=== PATIENT | male | born 1965 | race Caucasian/White ===

== ENCOUNTER 2023-03-02 11:10 | Outpatient (OUT) | payer OTHER, SELFPAY ==
[2023-03-02 11:50] LABS: Anion Gap 9.4; BUN Creatinine Ratio 13.2; Calcium 8.9 mg/dL (8.5-10.1); Carbon Dioxide 30.6 mmol/L (21.0-32.0); Chloride 106 mmol/L (98-107); Estimated GFR (African America >60 (>=60); Estimated GFR (Non-African Ame >60 (>=60); Glucose 107 mg/dL (74-106); Magnesium 1.7 mg/dL (1.8-2.4); Sodium 142 mmol/L (136-145)
[2023-03-02 11:54] LABS: Estimated Average Glucose 108 mg/dL; Glycohemoglobin A1C 5.4 % (4.5-6.2)
== END 2023-03-02 11:11 ==
PROVIDERS: PCP Nurse Practitioner; Visit Provider Nurse Practitioner
DX: E83.42 Hypomagnesemia (principal); R73.03 Prediabetes
CPT/HCPCS: 36415; 80048; 83036; 83735

== ENCOUNTER 2023-05-06 07:53 | Outpatient (OUT) | payer OTHER, SELFPAY ==
[2023-05-07 04:10] LABS: PSA, Free 0.66 ng/mL; Prostate Specific Ag 3.9 ng/mL (0.0-4.0)
== END 2023-05-06 07:54 | disposition home or self-care (01) ==
LOC: LAB 07:54
PROVIDERS: PCP Nurse Practitioner; Visit Provider Urology
DX: R97.20 Elevated prostate specific antigen [PSA] (principal)
CPT/HCPCS: 36415; 84153; 84154

== ENCOUNTER 2023-05-13 06:03 | Emergency (ER) | payer OTHER, SELFPAY ==
[2023-05-13 06:06] VITALS: BP 161/94; PULSE 73; RESP 20; O2SAT 99; BMI 23.7
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
[2023-05-13] MEDS: SILVER SULFADIAZINE 1% CREAM 25 GM TUBE 1 APPLIC TOPICAL (06:48)
[2023-05-13] MEDS: ADACEL DIPH,PERTUSS(ACELL),TET VAC/PF 0.5 ML ADULT SYRINGE IM (06:49)
== END 2023-05-13 08:12 | disposition home or self-care (01) ==
PROVIDERS: Emergency Provider Internal Medicine; PCP Nurse Practitioner
DX: T20.27XA Burn of second degree of neck, initial encounter (principal); T20.211A Burn of second degree of right ear [any part, except ear drum], initial encounter; X16.XXXA Contact with hot heating appliances, radiators and pipes, initial encounter; Z23 Encounter for immunization
CPT/HCPCS: 90471; 90715; 99283

== ENCOUNTER 2023-10-21 14:57 | Outpatient (OUT) | payer OTHER, SELFPAY ==
[2023-10-21 15:20] LABS: Basophils Absolute Auto 0.1 10^3/uL (0.0-0.1); Basophils Percent Auto 1.7 % (0.2-2.0); Eosinophils Absolute Auto 0.2 10^3/uL (0.0-0.7); Eosinophils Percent Auto 3.9 % (0.9-7.0); Hematocrit 44.1 % (42.0-54.0); Hemoglobin 14.3 g/dL (14.0-18.0); Immature Granulocytes Abs Auto 0.01 10^3/uL (0.00-0.03); Immature Granulocytes Pct Auto 0.2 % (0.0-0.5); Lymphocytes Absolute Auto 1.4 10^3/uL (1.2-3.8); Lymphocytes Percent Auto 30.2 % (20.5-60.0); Mean Corpuscular HGB Conc 32.4 g/dL (29.9-35.2); Mean Corpuscular Hemoglobin 29.5 pg (25.9-34.0); Mean Corpuscular Volume 90.9 fL (80.0-94.0); Mean Platelet Volume 9.7 fL (9.5-13.5); Monocytes Absolute Auto 0.5 10^3/uL (0.3-0.8); Monocytes Percent Auto 10.1 % (1.7-12.0); Neutrophils Absolute Auto 2.5 10^3/uL (1.4-6.5); Neutrophils Percent Auto 53.9 % (43.0-75.0); Platelet Count 211 10^3/uL (150-450); Red Blood Count 4.85 10^6/uL (4.70-6.10); White Blood Count 4.6 10^3/uL (4.0-11.0)
[2023-10-21 15:27] LABS: Bilirubin Urine NEGATIVE (NEGATIVE); Blood Urine NEGATIVE (NEGATIVE); Clarity Urine CLEAR (CLEAR); Color Urine YELLOW (YELLOW); Glucose Urine UA NEGATIVE (NEGATIVE); Ketones Urine NEGATIVE (NEGATIVE); Leukocyte Esterase Urine NEGATIVE (NEGATIVE); Nitrite Urine NEGATIVE (NEGATIVE); Protein Urine NEGATIVE (NEG/TRACE); Specific Gravity Urine >=1.030 (1.005-1.025); Urobilinogen Urine 0.2 EU/dL (0.2-1.0)
[2023-10-21 15:33] LABS: Estimated Average Glucose 111 mg/dL; Glycohemoglobin A1C 5.5 % (4.5-6.2)
[2023-10-21 15:34] LABS: Microalbumin Urine Random <1.3 mg/dL (<=30.0)
[2023-10-21 15:36] LABS: Alanine Aminotransferase 29 U/L (16-63); Albumin Globulin Ratio 1.1; Albumin Level 3.7 g/dL (3.4-5.0); Alkaline Phosphatase 50 U/L (46-116); Anion Gap 6.5; Aspartate Amino Transferase 21 U/L (15-37); BUN Creatinine Ratio 18.4; Bilirubin Total 0.6 mg/dL (0.2-1.0); Calcium 8.8 mg/dL (8.5-10.1); Carbon Dioxide 32.5 mmol/L (21.0-32.0); Chloride 108 mmol/L (98-107); Chol HDL Ratio 3.7; Cholesterol 142 mg/dL (<=200); Estimated GFR (African America >60 (>=60); Estimated GFR (Non-African Ame >60 (>=60); Globulin 3.3 g/dL; Glucose 89 mg/dL (74-106); HDL Cholesterol 38 mg/dL (40-60); Magnesium 1.9 mg/dL (1.8-2.4); Sodium 143 mmol/L (136-145); Triglycerides 87 mg/dL (<=150); VLDL CHOLESTEROL 17.4 mg/dL
[2023-10-21 15:45] LABS: Urine Microscopic Indicated YES
[2023-10-21 15:48] LABS: Bacteria Urine TRACE #/HPF (NONE SEEN); Cast Seen? NONE SEEN #/LPF (NONE SEEN); Crystals Seen? None Seen #/HPF (None Seen); Mucus Urine TRACE (NONE SEEN); RBC Urine 0-2 #/HPF (0-2); Squamous Epithelial Cell Urine RARE #/LPF (NONE/RARE); WBC Urine NONE SEEN #/HPF (NONE SEEN)
[2023-10-21 15:49] LABS: Urine Culture Indicated NO
== END 2023-10-21 14:58 | disposition home or self-care (01) ==
LOC: LAB 14:58
PROVIDERS: PCP Nurse Practitioner; Visit Provider Nurse Practitioner
DX: I10 Essential (primary) hypertension (principal); E78.2 Mixed hyperlipidemia; E61.2 Magnesium deficiency; K21.9 Gastro-esophageal reflux disease without esophagitis; E66.01 Morbid (severe) obesity due to excess calories; R73.03 Prediabetes
CPT/HCPCS: 36415; 80053; 80061; 81001; 82043; 83036; 83735; 85025

== ENCOUNTER 2024-07-09 10:37 | Outpatient (OUT) | payer OTHER, SELFPAY ==
--- OUTSIDE RECORDS SUMMARY | 2024-07-09 10:44 | XMS_ITS | CCD ---
Author Organization [facility] Inform ion Partnership [facility] Care Team Providers Care Public Policy Mediator Name Role Phone Kari Hernandez Unavailable Coty Valera Unavailable AICHHOLZ, FRENCH CORD BINDER JOEY Primary Care Unavailable PAY, DR MUIR Admitting Unavailable PAY, DR MUIR Attending Unavailable SALBADOR, DR DILMA Levi Consulting Unavailable PAY, DR MUIR Consulting Unavailable AICHHOLZ, FRENCH CORD BINDER JOEY Primary Care Unavailable DEMARCUS, DR ELÍAS Martinez Consulting Unavailable DEMARCUS, DR ELÍAS Martinez Admitting Unavailable DEMARCUS, DR ELÍAS Martinez Attending Unavailable EDDIE MARTINEZ Consulting Unavailable AICHHOLZ, FRENCH CORD BINDER JOEY Admitting Unavailable AICHHOLZ, FRENCH CORD BINDER JOEY Attending Unavailable AICHHOLZ, FRENCH CORD BINDER JOEY Primary Care Unavailable AICHHOLZ, FRENCH CORD BINDER JOEY Consulting Unavailable AICHHOLZ, FRENCH CORD BINDER JOEY Admitting Unavailable AICHHOLZ, FRENCH CORD BINDER JOEY Attending Unavailable AICHHOLZ, FRENCH CORD BINDER JOEY Primary Care Unavailable AICHHOLZ, FRENCH CORD BINDER JOEY Consulting Unavailable AICHHOLZ, FRENCH CORD BINDER JOEY Admitting Unavailable AICHHOLZ, FRENCH CORD BINDER JOEY Attending Unavailable AICHHOLZ, FRENCH CORD BINDER JOEY Primary Care Unavailable AICHHOLZ, FRENCH CORD BINDER JOEY Consulting Unavailable Kari Pillai Unavailable ADEBAYO ROBLES Attending Unavailable ADEBAYO ROBLES Referring Unavailable ANNMARIE MALONE Attending Unavailable SIDDHARTH, JOEY Attending Unavailable Christi Bright Attending Unavailable JOEY MESSINA Primary Care Physician Medications Current Medications Medication Drug Class(es) Dates Sig (Normalized) Sig (Original) [id number] 200 actuat albuterol 0.09 mg/actuat metered dose inhaler (5 sources) beta2-Adrenergic Agonist Start: 05-13-2022 take 2 puff(s) by inhalation every four hours as needed Albuterol Sulfate HFA 108 (90 Base) MCG/ACT 2 puffs as needed Inhalation every 4 hrs Apr, Active Start: 12-25-2020 take 2 puff(s) by in halation every four hours as needed Albuterol Sulfate HFA 108 (90 Base) MCG/ACT 2 puffs as needed Inhalation every 4 hrs Dec, Not-Taking Albuterol Active albuterol CFC free 90 mcg/inh inhalation aerosol (1 source) Start: 03-29-2020 take 2 puff(s) by inhalation four times daily albuterol CFC free 90 mcg/inh inhalation aerosol = 2 puff(s), Inhalation, QID Start Date: 03/29/20 Status: Ordered aspirin 81 mg delayed release oral tablet (4 sources) Platelet Aggregation Inhibitor, Nonsteroidal Anti-inflammatory Drug Start: 04-01-2020 take 1 tablet by mouth once daily aspirin 81 mg Oral EC Tab 81 mg = 1 tab(s), Oral, Daily, Refills(s) 0 Start Date: 04/01/20 Status: Ordered take 1 tablet by mouth once charles y Aspirin 81 81 MG 1 tablet Orally Once a day Active atenolol 25 mg oral tablet (4 sources) beta-Adrenergic Harry Start: 03-29-2020 take 1 tablet by mouth once daily atenolol 25 mg Tab 25 mg = 1 tab(s), Oral, Daily Start Date: 03/29/20 Status: Ordered Atenolol Active atorvastatin 20 mg oral tablet (4 sources) HMG-CoA Reductase Inhibitor Start: 04-01-2020 take 1 tablet by mouth once daily atorvastatin 20 mg Tab 20 mg = 1 tab(s), Oral, Daily, Refills(s) 0 Start Date: 04/01/20 Status: Ordered azithromycin 250 mg oral tablet (2 sources) Macrolide Antimicrobial Start: 05-13-2022 Azithromycin 250 MG 2 tablets on the first day, then 1 tablet daily for 4 days Orally Once a day for 5 day(s) Apr, Active Start: 12-25-2020 Azithromycin 2 50 MG 2 tablets on the first day, then 1 tablet daily for 4 days Orally Once a day for 5 day(s) Dec, Not-Taking benzonatate 100 mg oral capsule (1 source) Non-narcotic Antitussive take 1 capsule by mouth three times daily as needed Tessalon Perles 100 MG 1 capsule as needed Orally Three times a day for 7 days Active Calcium and Magnesium oral tablet (1 source) Start: 2019 take 1 tablet by mouth once daily Calcium and Magnesium oral tablet 1 tab(s), Oral, Daily, Refill(s) 0 Start Date: 04/01/20 Status: Ordered dextromethorphan hydrobromide 30 mg / pyrilamine maleate 30 mg oral tablet (1 source) Uncompetitive L-tvvded-V-aspartate Receptor Antagonist, Sigma-1 Agonist Start: 2021 take 1 tablet by mouth every six hours [place] DMT 30-30 MG 1 tablet Orally every 6 hours for 7 days Apr, Active docusate sodium 100 mg oral capsule (1 source) Start: 2019 take 1 capsule by mouth twice daily as needed for constipation Colace 100 mg Cap 100 mg = 1 cap(s), Oral, BID, PRN for constipation Start Date: 04/01/20 Status: Ordered famotidine 20 mg oral tablet (1 source) Histamine-2 Receptor Antagonist Start: 2019 take 1 tablet by mouth once daily famotidine 20 mg Tab 20 mg = 1 tab(s), Oral, Daily Start Date: 03/29/20 Status: Ordered Fish Oils (1 source) Start: 2019 take 1 capsule by mouth once daily Fish Oil 1200 mg oral capsule 1,200 mg = 1 cap(s), Oral, Daily, Refills(s) 0 Start Date: 04/01/20 Status: Ordered loratadine 10 mg oral tablet (1 source) Start: 2019 take 1 tablet by mouth once daily loratadine 10 mg Tab 10 mg = 1 tab(s), Oral, Daily, Refills(s) 0 Start Date: 04/01/20 Status: Ordered losartan potassium 50 mg oral tablet (4 sources) Angiotensin 2 Receptor Harry Start: 2019 take 1 tablet by mouth twice daily losartan 50 mg Tab 50 mg = 1 tab(s), Oral, BID Start Date: 03/29/20 Status: Ordered Losartan Potassi um Active Magnesium Oxide (1 source) Start: 08-08-2022 magnesium oxid e Oral, Refills(s) 0 Start Date: 08/08/22 Status: Ordered meloxicam 15 mg oral tablet (4 sources) Nonsteroidal Anti-inflammatory Drug Start: 04-01-2020 take 1 tablet by mouth twice daily meloxicam 15 mg Tab 15 mg = 1 tab(s), Oral, BID, Refills(s) 0 Start Date: 04/01/20 Status: Ordered take 1 tablet by chandler th every twenty-four hours Meloxicam 15 MG 1 Tablet By Mouth daily Active take 1 tablet by mouth every twe lve hours Meloxicam 7.5 MG 1 tablet Orally Twice a day Active metFORMIN (4 sources) Biguanide Start: 08-08-2022 metformin Oral , Refills(s) 0 Start Date: 08/08/22 Status: Ordered take 0.5 tablet by mouth once da zulema metFORMIN HCl 500 MG 1/2 TAB orally daily Active metFORMIN HCl Ac tive methylPREDNISolone 4 mg oral tablet (3 sources) Corticosteroid Start: 08-17-2022 methylPREDNISo lone 4 MG as directed Orally for daily dose take half with breakfast, half with dinner for 6 days Aug, Active Start: 05-13-2022 methylPREDNISo lone 4 MG as directed Orally Once a day for 6 days Apr, Active Start: 12-25-2020 methylPREDNISo lone 4 MG as directed Orally Once a day for 6 days Dec, Not-Taking Multivital (3 sources) Multivital Activ e Stool Softener (3 sources) Stool Softener Active tiZANidine 4 mg oral capsule (4 sources) Central alpha-2 Adrenergic Agonist Start: 08-08-2022 take 1 mg by mouth three times daily tizanidine 4 mg oral capsule mg cap(s), Oral, TID, Refills(s) 0 Start Date: 08/08/22 Status: Ordered tiZANidine HCl A ctive traMADol (1 source) Opioid Agonist traMADol HCl Act lenora vitamin B12 (3 sources) Vitamin B12 Vitamin B 12 Act lenora Completed/Discontinued Medications Medication Drug Class(es) Dates Sig (Normalized) Sig (Original) fluticasone propionate 0.05 mg/actuat metered dose nasal spray (1 source) Corticosteroid Start: 12-25-2020 take 1 spray(s) nasal route once daily Fluticasone Propionate 50 MCG/ACT 1 spray in each nostril Nasally Once a day for 30 day(s) Dec, Not-Taking triamcinolone acetonide 40 mg/ml injectable suspension (1 source) Corticosteroid Start: 08-17-2022 Kenalog-40 Aug, 60 mg Vitamin B12 50 mcg oral tablet (1 source) Start: 04-01-2020 take 1 tablet by mouth once daily Vitamin B12 50 mcg oral tablet 50 microgram = 1 tab(s), Oral, Daily, Refills(s) 0 Start Date: 04/01/20 Status: Ordered Vitamin D3 1000 intl units oral capsule (1 source) Start: 04-01-2020 take 1 capsule by mouth once daily Vitamin D3 1000 intl units oral capsule 1,000 International_Unit = 1 cap(s), Oral, Daily, Refills(s) 0 Start Date: 04/01/20 Status: Ordered Problems Active Problems Problem Classification Problem Date Documented Da te Episodic/Chronic Calculus of urinary tract (2 sources) Calculus of kidney; Translations: [Kidney stone] Onset: 07-17-2022 08-08-2022 Episodic Diabetes mellitus without complication (1 source) Prediabetes; Translations: [PREDIABETES] Onset: 06-16-2022 Episodic Disorders of lipid metabolism (1 source) Hyperlipidemia, unspecified; Translations: [HYPERLIPIDEMIA UNSPECIFIED] Onset: 06-16-2022 Chronic Essential hypertension (2 sources) Essential (primary) hypertension; Translations: [Hypertensive disorder] Onset: 06-16-2022 03-23-2020 Chronic Genitourinary symptoms and ill-defined conditions (2 sources) Must strain to pass urine; Translations: [Nocturia] 03-23-2020 Episodic Hemorrhoids (1 source) Internal hemorrhoids 04-04-2020 Episodic Hyperplasia of prostate (2 sources) Benign prostatic hypertrophy with outflow obstruction; Translations: [Prostate nodule] 04-27-2020 Chronic Nausea and vomiting (1 source) Nausea with vomiting, unspecified; Translations: [NAUSEA WITH VOMITING UNSPECIFIED] Onset: 07-17-2022 Episodic Other aftercare (1 source) 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; 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] Onset: 07-17-2022 Episodic Other aftercare (1 source) Other intermediate (current) drug therapy; Translations: [OTH FPC CURRENT DRUG THERAPY] Onset: 07-17-2022 Episodic Other connective tissue disease (4 sources) Cramp and spasm; Translations: [CRAMP AND SPASM] Onset: 06-14-2022 Episodic Other ear and sense organ disorders (1 source) Bilateral deafness 03-23-2020 Chronic Other injuries and conditions due to external causes (1 source) H/O: head injury 03-23-2020 Episodic Other non-traumatic joint disorders (1 source) Pain in left knee Episodic Other nutritional; endocrine; and metabolic disorders (4 sources) Hypomagnesemia; Translations: [HYPOMAGNESEMIA] Onset: 09-12-2022 Chronic Other screening for suspected conditions (not mental disorders or infectious disease) (2 sources) Encounter for screening for malignant neoplasm of prostate; Translations: [Raised prostate specific antigen] Onset: 06-16-2022 04-27-2020 Episodic Spondylosis; intervertebral disc disorders; other back problems (3 sources) Dorsalgia, unspecified; Translations: [DORSALGIA UNSPECIFIED] Onset: 07-13-2022 Episodic Unclassified (2 sources) CONTACT W/AND (SUSP) EXPOS COVID-19; Translations: [CONTACT W/AND (SUSP) EXPOS COVID-19] Onset: 09-21-2021 Viral infection (2 sources) COVID-19; Translations: [COVID-19] Onset: 09-21-2021 Resolved: 05-13-2022 Past or Other Problems Problem Classification Problem Date Documented Da te Episodic/Chronic Chronic obstructive pulmonary disease and bronchiectasis (1 source) Bronchitis, not specified as acute or chronic Onset: 05-13-2022 Resolved: 05-13-2022 Episodic E Codes: Cut/pierceb (1 source) Contact with other sharp object(s), not elsewhere classified, initial encounter; Translations: [[facility] OTH SHRP OB NOT ELSW CLASS INI] Onset: 01-09-2022 Episodic Immunizations and screening for infectious disease (3 sources) Contact with and (suspected) exposure to other viral communicable diseases; Translations: [Encounter for immunization] Onset: 09-14-2021 Resolved: 05-13-2022 Episodic Open wounds of extremities (4 sources) Laceration without foreign body of left index finger without damage to nail, initial encounter; Translations: [LAC W/O FB LT IF W/O DMG NAIL INIT] Onset: 01-05-2022 Episodic Unclassified (1 source) CONTACT W/AND (SUSP) EXPOS COVID-19; Translations: [CONTACT W/AND (SUSP) EXPOS COVID-19] Onset: 09-18-2021 Results Test Name Value Interpretation Reference Range Facility MAGNESIUMon 09-12-2022 Magnesium [Mass/Vol] 1.9 mg/dL Normal 1.8-2.4 [facility] Comment on above: Performed By: #### C BC #### [facility] [address] [place] [address] Dr. Krystal Friedman CBC AUTO DIFFon 07-13-2022 BASO # 0.1 103/ul Normal 0.0-0.1 [facility] Comment on above: Performed By: #### C BC #### [facility] [address] [place] [address] Dr. Krystal Friedman Basophils/100 WBC (Bld) 1.3 % Normal 0.2-2.0 [facility] Comment on above: Performed By: #### C BC #### [facility] [address] [place] [address] Dr. Krystal Friedman EO # 0.2 103/ul Normal 0.0-0.7 [facility] Comment on above: Performed By: #### C BC #### [facility] [address] [place] [address] Dr. Krystal Friedman Eosinophils/100 WBC (Bld) 2.6 % Normal 0.9-7.0 [facility] Comment on above: Performed By: #### C BC #### [facility] [address] [place] [address] Dr. Krystal Friedman Erythrocyte distribution width (RBC) [Ratio] 12.9 % Normal 11.0-15.0 [facility] Comment on above: Performed By: #### C BC #### [facility] [address] [place] [address] Dr. Krystal Friedman Hematocrit (Bld) [Volume fraction] 43.1 % Normal 42.0-54.0 [facility] Comment on above: Performed By: #### C BC #### [facility] [address] [place] [address] Dr. Krystal Friedman Hemoglobin (Bld) [Mass/Vol] 14.5 g/dL Normal 14.0-18.0 [facility] Comment on above: Performed By: #### C BC #### [facility] [address] [place] [address] Dr. Krystal Friedman IG # 0.02 10e3/ul Normal 0.00-0.03 [facility] Comment on above: Performed By: #### C BC #### [facility] [address] [place] [address] Dr. Krystal Friedman IG % 0.3 % Normal 0.0-0.5 [facility] Comment on above: Performed By: #### C BC #### [facility] [address] [place] [address] Dr. Krystal Friedman LYMPH # 2.2 103/ul Normal 1.2-3.8 [facility] Comment on above: Performed By: #### C BC #### [facility] [address] [place] [address] Dr. Krystal Friedman Lymphocytes/100 WBC (Bld) 31.0 % Normal 20.5-60.0 [facility] Comment on above: Performed By: #### C BC #### [facility] [address] [place] [address] Dr. Krystal Friedman MANUAL DIFF REQ NO Normal [facility] Comment on above: Performed By: #### C BC #### [facility] [address] [place] [address] Dr. Krystal Friedman MCH (RBC) [Entitic mass] 30.2 pg Normal 25.9-34.0 [facility] Comment on above: Performed By: #### C BC #### [facility] [address] [place] [address] Dr. Krystal Friedman MCHC (RBC) [Mass/Vol] 33.6 g/dL Normal 29.9-35.2 [facility] Comment on above: Performed By: #### C BC #### [facility] [address] [place] [address] Dr. Krystal Friedman MCV (RBC) [Entitic vol] 89.8 fL Normal 80.0-94.0 [facility] Comment on above: Performed By: #### C BC #### [facility] [address] [place] [address] Dr. Krystal Friedman MONO # 0.7 103/ul Normal 0.3-0.8 [facility] Comment on above: Performed By: #### C BC #### [facility] [address] [place] [address] Dr. Krystal Friedman Monocytes/100 WBC (Bld) 9.6 % Normal 1.7-12.0 [facility] Comment on above: Performed By: #### C BC #### [facility] [address] [place] [address] Dr. Krystal Friedman NEUT # 3.9 103/ul Normal 1.4-6.5 [facility] Comment on above: Performed By: #### C BC #### [facility] [address] [place] [address] Dr. Krystal Friedman Neutrophils/100 WBC (Bld) 55.2 % Normal 43.0-75.0 [facility] Comment on above: Performed By: #### C BC #### [facility] [address] [place] [address] Dr. Krystal Friedman Platelet mean volume (Bld) [Entitic vol] 10.1 fL Normal 9.5-13.5 [facility] Comment on above: Performed By: #### C BC #### [facility] [address] [place] [address] Dr. Krystal Friedman PLT 274 103/ul Normal 150-450 [facility] Comment on above: Performed By: #### C BC #### [facility] [address] [place] [address] Dr. Krystal Friedman RBC 4.80 106/ul Normal 4.70-6.10 [facility] Comment on above: Performed By: #### C BC #### [facility] [address] [place] [address] Dr. Krystal Friedman WBC 7.0 103/ul Normal 4.0-11.0 [facility] Comment on above: Performed By: #### C BC #### [facility] [address] [address] [address] ABD/PELV W CONon 07-13-[address] ABD/PELV W CON EXAMINATION: CT ABD/ PELV W CON, 07/13/2022 7:30 AM EDT HISTORY: GENERALIZED ABDOMINAL PAIN , left upper quadrant pain, nausea and vomiting COMPARISON: None. TECHNIQUE: CT scan of the abdomen and pelvis was performed with IV contrast. CT dose reduction technique was used, including Automated Exposure Control. FINDINGS: LUNG BASES: No visible pulmonary or pleural disease. LIVER: No enlargement, atrophy, abnormal density, or significant focal lesion. BILIARY: No dilatation or calcification. PANCREAS: No lesion, fluid collection, ductal dilatation, or atrophy. SPLEEN: No enlargement or focal lesion. ADRENALS: No mass or enlargement. KIDNEYS: Normal right. Asymmetric enlargement of the left with mildly delayed nephrogram. Mild hydroureteronephrosis extending to a 2 mm distal ureterolith axial image 131 1 cm proximal to the ureterovesical junction. An additional calcification on axial image 129 is felt to be vascular phleboliths BOWEL/MESENTERY: Mild colonic diverticulosis. Nonobstructive bowel gas pattern AORTA/VASCULAR: No aneurysm or dissection. RETROPERITONEUM: No mass or adenopathy. LYMPH NODES: No adenopathy. URINARY BLADDER: No visible focal wall thickening, lesion, or calculus. PELVIC ORGANS: No visible mass. Pelvic organs appropriate for patient age. ABDOMINAL WALL: No mass or hernia. BONES: No bony lesion or fracture. OTHER: Negative. IMPRESSION: 2 mm distal left ureterolith with mild associated obstructive uropathy Electronically authenticated by: DILMA SIU Date: 2022-07-13 08:34 Normal [facility] URINE PROFILEon 2 Bilirubin Ql (U) Negative Normal NEGATIVE [facility] Comment on above: Performed By: #### C BC #### [facility] [address] [address] [address] Krystal Friedman Clarity (U) CLEAR Normal CLEAR [facility] Comment on above: Performed By: #### C BC #### [facility] [address] [address] [address] Krystal Friedman Color (U) DK. YELLOW Normal YELLOW [facility] Comment on above: Performed By: #### C BC #### [facility] [address] [address] [address] Krystal TROY A micrscopic examina tion will be performed if indicated. Normal [facility] Comment on above: Performed By: #### C BC #### [facility] [address] [address] [address] Krystal Friedman Glucose Ql (U) Negative Normal NEGATIVE [facility] Comment on above: Performed By: #### C BC #### [facility] [address] [place] [address] Dr. Krystal Friedman Hemoglobin Ql (U) LARGE Abnormal NEGATIVE [facility] Comment on above: Performed By: #### C BC #### [facility] [address] [place] [address] Dr. Krystal Friedman Ketones Ql (U) Negative Normal NEGATIVE [facility] Comment on above: Performed By: #### C BC #### [facility] [address] [place] [address] Dr. Krystal Friedman LEUKOCYTES Negative Normal NEGATIVE [facility] Comment on above: Performed By: #### C BC #### [facility] [address] [place] [address] Dr. Krystal Friedman Nitrite Ql (U) Negative Normal NEGATIVE [facility] Comment on above: Performed By: #### C BC #### [facility] [address] [place] [address] Dr. Krystal Friedman pH (U) 5.5 [pH] Normal 5-9 [facility] Comment on above: Performed By: #### C BC #### [facility] [address] [place] [address] Dr. Krystal Friedman SPEC GRAVITY 1.025 Normal 1.005-<=1.02 5 [facility] Comment on above: Performed By: #### C BC #### [facility] [address] [place] [address] Dr. Krystal Friedman UA PROTEIN TRACE Normal NEGATIVE/ TRACE [facility] Comment on above: Performed By: #### C BC #### [facility] [address] [place] [address] Dr. Krystal Friedman UR MICRO IND INDICATED Normal [facility] Comment on above: Performed By: #### C BC #### [facility] [address] [place] [address] Dr. Krystal Friedman Urobilinogen Qn (U) 0.2 {Jose'U}/dL Normal 0.2 - 1.0 [facility] Comment on above: Performed By: #### C BC #### [facility] [address] [place] [address] Dr. Krystal Friedman LACTATE/LACTIC ACIDon 2021 Lactate [Moles/Vol] 2.1 mmol/L Critically high 0.4-1.9 [facility] Comment on above: Performed By: #### L ACT #### [facility] [address] [place] [address] Dr. Krystal Friedman LIPASEon 07-13-2022 Lipase [Catalytic activity/Vol] 119.0 U/L Normal 73.0-393.0 [facility] Comment on above: Performed By: #### L IPA, HSTROPN, CMP #### [facility] [address] [place] [address] Dr. Krystal Friedman PROF 14(COMP METB)on 022 Albumin [Mass/Vol] 4.1 g/dL Normal 3.4-5.0 [facility] Comment on above: Performed By: #### L IPA, HSTROPN, CMP #### [facility] [address] [place] [address] Dr. Krystal Friedman Albumin/Globulin [Mass ratio] 1.2 {ratio} Normal [facility] Comment on above: Performed By: #### L IPA, HSTROPN, CMP #### [facility] [address] [place] [address] Dr. Krystal Friedman ALP [Catalytic activity/Vol] 50 U/L Normal 46-116 [facility] Comment on above: Performed By: #### L IPA, HSTROPN, CMP #### [facility] [address] [address] [address] Krystal Friedman ALT [Catalytic activity/Vol] 31 U/L Normal 16-63 [facility] Comment on above: Performed By: #### L IPA, HSTROPN, CMP #### [facility] [address] [address] [address] Krystal Friedman Anion gap [Moles/Vol] 13.1 mmol/L Normal [facility] Comment on above: Performed By: #### L IPA, HSTROPN, CMP #### [facility] [address] [address] [address] Krystal Friedman AST [Catalytic activity/Vol] 19 U/L Normal 15-37 [facility] Comment on above: Performed By: #### L IPA, HSTROPN, CMP #### [facility] [address] [place] [address] Dr. Krystal Friedman Bilirubin [Mass/Vol] 0.4 mg/dL Normal 0.2-1.0 [facility] Comment on above: Performed By: #### L IPA, HSTROPN, CMP #### [facility] [address] [address] [address] Krystal Friedman Calcium [Mass/Vol] 9.2 mg/dL Normal 8.5-10.1 [facility] Comment on above: Performed By: #### L IPA, HSTROPN, CMP #### [facility] [address] [address] [address] Krystal Friedman Chloride [Moles/Vol] 108 mmol/L Critically high 98-107 [facility] Comment on above: Performed By: #### L IPA, HSTROPN, CMP #### [facility] [address] [address] [address] Kyrstal Friedman CO2 [Moles/Vol] 25.7 mmol/L Normal 21.0-32.0 [facility] Comment on above: Performed By: #### L IPA, HSTROPN, CMP #### [facility] [address] [address] [address] Krystal Friedman Creatinine [Mass/Vol] 1.48 mg/dL Critically high 0.70-1.30 [facility] Comment on above: Performed By: #### L IPA, HSTROPN, CMP #### [facility] [address] [place] [address] Dr. Krystal Friedman EGFR-AF [place] ISLANDER 59 mL/min/1.73m2 Critically low >=60 [facility] Comment on above: Performed By: #### L IPA, HSTROPN, CMP #### [facility] [address] [address] [address] Krystal Friedman EGFR-NON AF [place]ER 49 mL/min/1.73m2 Critically low >=60 [facility] Comment on above: Performed By: #### L IPA, HSTROPN, CMP #### [facility] [address] [place] [address] Dr. Krystal Friedman Globulin (S) [Mass/Vol] 3.4 g/dL Normal [facility] Comment on above: Performed By: #### L IPA, HSTROPN, CMP #### [facility] [address] [place] [address] Dr. Krystal Friedman Glucose [Mass/Vol] 135 mg/dL Critically high 74-106 [facility] Comment on above: Performed By: #### L IPA, HSTROPN, CMP #### [facility] [address] [place] [address] Dr. Krystal Friedman Potassium [Moles/Vol] 3.8 mmol/L Normal 3.5-5.1 [facility] Comment on above: Performed By: #### L IPA, HSTROPN, CMP #### [facility] [address] [place] [address] Dr. Krystal Friedman Protein [Mass/Vol] 7.5 g/dL Normal 6.4-8.2 [facility] Comment on above: Performed By: #### L IPA, HSTROPN, CMP #### [facility] [address] [place] [address] Dr. Krystal Friedman Sodium [Moles/Vol] 143 mmol/L Normal 136-145 [facility] Comment on above: Performed By: #### L IPA, HSTROPN, CMP #### [facility] [address] [place] [address] Dr. Krystal Friedman Urea nitrogen [Mass/Vol] 21.0 mg/dL Critically high 7.0-18.0 [facility] Comment on above: Performed By: #### L IPA, HSTROPN, CMP #### [facility] [address] [place] [address] Dr. Krystal Friedman Urea nitrogen/Creatinin e [Mass ratio] 14.2 mg/mg Normal [facility] Comment on above: Performed By: #### L IPA, HSTROPN, CMP #### [facility] [address] [place] [address] Dr. Krystal Friedman TROPONIN, HIGH SENSITIVITYon 07-13-2022 HSTROP 7.7 pg/mL Normal 4.0-76.1 [facility] Comment on above: Result Comment: CUT- OFF POINTS HAVE BEEN ESTABLISHED BASED ON THE FOURTH UNIVERSAL DEFINITIONS OF MYOCARDIAL INFARCTION. THE UPPER REFERENCE LIMIT (URL) OF TROPONIN, DEFINED THE 99TH PERCENTILE OF cTnI DISTRIBUTION IN A REFERENCE POPULATION, HAS BEEN CONFIRMED THE DECISION THRESHOLD FOR MO DIAGNOSIS. Performed By: #### L IPA, HSTROPN, CMP #### [facility] [address] [place] [address] Dr. Krystal Friedman URINE MICROSCOPIC ONLYon BACTERIA TRACE Abnormal NONE SEEN [facility] Comment on above: Performed By: #### C BC #### [facility] [address] [place] [address] Dr. Krystal Friedman Bacteria identified Cx Nom (U) NOT INDICATED Normal [facility] Comment on above: Performed By: #### C BC #### [facility] [address] [place] [address] Dr. Krystal Friedman CAST NONE SEEN Normal NONE SEEN [facility] Comment on above: Performed By: #### C BC #### [facility] [address] [place] [address] Dr. Krystal Friedman Crystals LM Nom (Urine sed) NONE SEEN Normal NONE SEEN [facility] Comment on above: Performed By: #### C BC #### [facility] [address] [place] [address] Dr. Krystal Friedman Epithelial cells LM Ql (Urine sed) RARE Normal NONE SEEN /RARE [facility] Comment on above: Performed By: #### C BC #### [facility] [address] [place] [address] Dr. Krystal Friedman MUCOUS MODERATE Abnormal NONE SEEN [facility] Comment on above: Performed By: #### C BC #### [facility] [address] [place] [address] Dr. Krystal Friedman RBC 10-20 Abnormal 0-2 [facility] Comment on above: Performed By: #### C BC #### [facility] [address] [place] [address] Dr. Krystal Friedman WBC 2-5 Abnormal NONE SEEN [facility] Comment on above: Performed By: #### C BC #### [facility] [address] [place] [address] Dr. Krystal Friedman MICROALBUMIN URINEon 022 Albumin, Urine 31.8 ug/mL Normal Not Estab. [facility] Comment on above: Performed By: #### C BC #### [facility] [address] [place] [address] Dr. Krystal Friedman CBC AUTO DIFFon 06-14-2022 BASO # 0.1 103/ul Normal 0.0-0.1 [facility] Comment on above: Performed By: #### C BC #### [facility] [address] [place] [address] Dr. Krystal Friedman Basophils/100 WBC (Bld) 1.6 % Normal 0.2-2.0 [facility] Comment on above: Performed By: #### C BC #### [facility] [address] [place] [address] Dr. Krystal Friedman EO # 0.2 103/ul Normal 0.0-0.7 [facility] Comment on above: Performed By: #### C BC #### [facility] [address] [place] [address] Dr. Krystal Friedman Eosinophils/100 WBC (Bld) 4.5 % Normal 0.9-7.0 [facility] Comment on above: Performed By: #### C BC #### [facility] [address] [place] [address] Dr. Krystal Friedman Erythrocyte distribution width (RBC) [Ratio] 13.3 % Normal 11.0-15.0 [facility] Comment on above: Performed By: #### C BC #### [facility] [address] [place] [address] Dr. Krystal rFiedman Hematocrit (Bld) [Volume fraction] 41.3 % Critically low 42.0-54.0 [facility] Comment on above: Performed By: #### C BC #### [facility] [address] [place] [address] Dr. Krystal Friedman Hemoglobin (Bld) [Mass/Vol] 13.8 g/dL Critically low 14.0-18.0 [facility] Comment on above: Performed By: #### C BC #### [facility] [address] [place] [address] Dr. Krystal Friedman IG # 0.01 10e3/ul Normal 0.00-0.03 [facility] Comment on above: Performed By: #### C BC #### [facility] [address] [place] [address] Dr. Krystal Friedman IG % 0.3 % Normal 0.0-0.5 [facility] Comment on above: Performed By: #### C BC #### [facility] [address] [place] [address] Dr. Krystal Friedman LYMPH # 1.2 103/ul Normal 1.2-3.8 [facility] Comment on above: Performed By: #### C BC #### [facility] [address] [place] [address] Dr. Krystal Friedman Lymphocytes/100 WBC (Bld) 32.0 % Normal 20.5-60.0 [facility] Comment on above: Performed By: #### C BC #### [facility] [address] [place] [address] Dr. Krystal Friedman MANUAL DIFF REQ NO Normal [facility] Comment on above: Performed By: #### C BC #### [facility] [address] [address] [address] Krystal Friedman MCH (RBC) [Entitic mass] 30.3 pg Normal 25.9-34.0 [facility] Comment on above: Performed By: #### C BC #### [facility] [address] [address] [address] Krystal Friedman MCHC (RBC) [Mass/Vol] 33.4 g/dL Normal 29.9-35.2 [facility] Comment on above: Performed By: #### C BC #### [facility] [address] [address] [address] Krystal Friedman MCV (RBC) [Entitic vol] 90.8 fL Normal 80.0-94.0 [facility] Comment on above: Performed By: #### C BC #### [facility] [address] [place] [address] Dr. Krystal Friedman MONO # 0.4 103/ul Normal 0.3-0.8 [facility] Comment on above: Performed By: #### C BC #### [facility] [address] [place] [address] Dr. Krystal Friedman Monocytes/100 WBC (Bld) 10.1 % Normal 1.7-12.0 [facility] Comment on above: Performed By: #### C BC #### [facility] [address] [place] [address] Dr. Krystal Friedman NEUT # 2.0 103/ul Normal 1.4-6.5 [facility] Comment on above: Performed By: #### C BC #### [facility] [address] [place] [address] Dr. Krystal Friedman Neutrophils/100 WBC (Bld) 51.5 % Normal 43.0-75.0 [facility] Comment on above: Performed By: #### C BC #### [facility] [address] [place] [address] Dr. Krystal Friedman Platelet mean volume (Bld) [Entitic vol] 9.6 fL Normal 9.5-13.5 [facility] Comment on above: Performed By: #### C BC #### [facility] [address] [address] [address] Krystal Friedman PLT 211 103/ul Normal 150-450 [facility] Comment on above: Performed By: #### C BC #### [facility] [address] [address] [address] Krystal Friedman RBC 4.55 106/ul Critically low 4.70-6.10 [facility] Comment on above: Performed By: #### C BC #### [facility] [address] [address] [address] Krystal Friedman WBC 3.8 103/ul Critically low 4.0-11.0 [facility] Comment on above: Performed By: #### C BC #### [facility] [address] [place] [address] Dr. Krystal Friedman CPKon 06-14-2022 CK [Catalytic activity/Vol] 307 U/L Normal 39-308 [facility] Comment on above: Performed By: #### M G, CMP, LIPID, CK #### [facility] [address] [address] [address] Krystal Friedman GLYCOHEMOGLOBIN A1Con 2021 ADA RECOMMENDATION SEE BELOW Normal [facility] Comment on above: Result Comment: ADA RECOMMENDED LIMIT 4.0 - 6.0 ADA THERAPEUTIC TARGET < 7.0 ACTION SUGGESTED > 7.0 Performed By: #### C BC #### [facility] [address] [address] [address] Krystal Friedman Glucose [Mass/Vol] 108 mg/dL Normal [facility] Comment on above: Performed By: #### C BC #### [facility] [address] [address] [address] Krystal Friedman HbA1c (Bld) [Mass fraction] 5.4 % Normal 4.5-6.2 [facility] Comment on above: Performed By: #### C BC #### [facility] [address] [address] [address] Krystal Friedman LIPID PROFILEon 06-14-2022 CHOL-HDL RATIO NORM SEE BELOW Normal [facility] Comment on above: Result Comment: 3.3 - 4.4 LOW RISK 4.4 - 7.1 AVERAGE RISK 7.1 - 11.0 MODERATE RISK >11.0 HIGH RISK Performed By: #### M G, CMP, LIPID, CK #### [facility] [address] [address] [address] Krystal Friedman Cholesterol [Mass/Vol] 134 mg/dL Normal <=200 [facility] Comment on above: Performed By: #### M G, CMP, LIPID, CK #### [facility] [address] [address] [address] Krystal Friedman Cholesterol in HDL [Mass/Vol] 35 mg/dL Critically low 40-60 [facility] Comment on above: Performed By: #### M G, CMP, LIPID, CK #### [facility] [address] [address] [address] Krystal Friedman Cholesterol in LDL [Mass/Vol] 78.2 mg/dL Normal [facility] Comment on above: Performed By: #### M G, CMP, LIPID, CK #### [facility] [address] [address] [address] Krystal Friedman Cholesterol.total/ Cholesterol in HDL [Mass ratio] 3.8 {ratio} Normal [facility] Comment on above: Performed By: #### M G, CMP, LIPID, CK #### [facility] [address] [address] [address] Krystal Friedman HDL NORMAL > or = 60 mg/dl - LO W CARDIOVASCULAR RISK <40 mg/dl - HIGH CARDIOVASCULAR RISK Normal [facility] Comment on above: Performed By: #### M G, CMP, LIPID, CK #### [facility] [address] [address] [address] Krystal Friedman LDL CALC NORMAL SEE BELOW Normal [facility] Comment on above: Result Comment: <100 mg/dl OPTIMAL 100 - 129 mg/dl NEAR OR ABOVE OPTIMAL 130 - 159 mg/dl BORDERLINE HIGH 160 - 189 mg/dl HIGH >190 mg/dl VERY HIGH Performed By: #### M G, CMP, LIPID, CK #### [facility] [address] [address] [address] Krystal Friedman Triglyceride [Mass/Vol] 104 mg/dL Normal <=150 [facility] Comment on above: Performed By: #### M G, CMP, LIPID, CK #### [facility] [address] [address] [address] Krystal Friedman VLDL CALC 20.8 mg/dL Normal [facility] Comment on above: Performed By: #### M G, CMP, LIPID, CK #### [facility] [address] [address] [address] Krystal Friedman MAGNESIUMon 06-14-2022 Magnesium [Mass/Vol] 1.7 mg/dL Critically low 1.8-2.4 [facility] Comment on above: Performed By: #### M G, CMP, LIPID, CK #### [facility] [address] [place] [address] Dr. Krystal Friedman PROF 14(COMP METB)on 022 Albumin [Mass/Vol] 3.6 g/dL Normal 3.4-5.0 [facility] Comment on above: Performed By: #### M G, CMP, LIPID, CK #### [facility] [address] [place] [address] Dr. Krystal Friedman Albumin/Globulin [Mass ratio] 1.2 {ratio} Normal [facility] Comment on above: Performed By: #### M G, CMP, LIPID, CK #### [facility] [address] [address] [address] Krystal Friedman ALP [Catalytic activity/Vol] 42 U/L Critically low 46-116 [facility] Comment on above: Performed By: #### M G, CMP, LIPID, CK #### [facility] [address] [place] [address] Dr. Krystal Friedman ALT [Catalytic activity/Vol] 46 U/L Normal 16-63 [facility] Comment on above: Performed By: #### M G, CMP, LIPID, CK #### [facility] [address] [address] [address] Krystal Friedman Anion gap [Moles/Vol] 8.2 mmol/L Normal [facility] Comment on above: Performed By: #### M G, CMP, LIPID, CK #### [facility] [address] [address] [address] Krystal Friedman AST [Catalytic activity/Vol] 28 U/L Normal 15-37 [facility] Comment on above: Performed By: #### M G, CMP, LIPID, CK #### [facility] [address] [address] [address] Krystal Friedman Bilirubin [Mass/Vol] 0.5 mg/dL Normal 0.2-1.0 [facility] Comment on above: Performed By: #### M G, CMP, LIPID, CK #### [facility] [address] [place] [address] Dr. Krystal Friedman Calcium [Mass/Vol] 8.6 mg/dL Normal 8.5-10.1 [facility] Comment on above: Performed By: #### M G, CMP, LIPID, CK #### [facility] [address] [address] [address] Krystal Friedman Chloride [Moles/Vol] 107 mmol/L Normal 98-107 [facility] Comment on above: Performed By: #### M G, CMP, LIPID, CK #### [facility] [address] [address] [address] Krystal Friedman CO2 [Moles/Vol] 30.0 mmol/L Normal 21.0-32.0 [facility] Comment on above: Performed By: #### M G, CMP, LIPID, CK #### [facility] [address] [address] [address] Krystal Friedman Creatinine [Mass/Vol] 1.19 mg/dL Normal 0.70-1.30 [facility] Comment on above: Performed By: #### M G, CMP, LIPID, CK #### [facility] [address] [address] [address] Krystal Friedman EGFR-AF [place] ISLANDER >60 Normal >=60 [facility] Comment on above: Performed By: #### M G, CMP, LIPID, CK #### [facility] [address] [address] [address] Krystal Friedman EGFR-NON AF [place] ISLANDER >60 Normal >=60 [facility] Comment on above: Performed By: #### M G, CMP, LIPID, CK #### [facility] [address] [address] [address] Krystal Friedman Globulin (S) [Mass/Vol] 3.1 g/dL Normal [facility] Comment on above: Performed By: #### M G, CMP, LIPID, CK #### [facility] [address] [address] [address] Krystal Friedman Glucose [Mass/Vol] 101 mg/dL Normal 74-106 [facility] Comment on above: Performed By: #### M G, CMP, LIPID, CK #### [facility] [address] [place] [address] Dr. Krystal Friedman Potassium [Moles/Vol] 4.2 mmol/L Normal 3.5-5.1 [facility] Comment on above: Performed By: #### M G, CMP, LIPID, CK #### [facility] [address] [address] [address] Krystal Friedman Protein [Mass/Vol] 6.7 g/dL Normal 6.4-8.2 [facility] Comment on above: Performed By: #### M G, CMP, LIPID, CK #### [facility] [address] [address] [address] Krystal Friedman Sodium [Moles/Vol] 141 mmol/L Normal 136-145 [facility] Comment on above: Performed By: #### M G, CMP, LIPID, CK #### [facility] [address] [address] [address] Krystal Friedman Urea nitrogen [Mass/Vol] 21.0 mg/dL Critically high 7.0-18.0 [facility] Comment on above: Performed By: #### M G, CMP, LIPID, CK #### [facility] [address] [address] [address] Krystal Friedman Urea nitrogen/Creatinin e [Mass ratio] 17.6 mg/mg Normal [facility] Comment on above: Performed By: #### M G, CMP, LIPID, CK #### [facility] [address] [place] [address] Dr. Krystal Friedman UA RANDOM W/MICROSCOPICon BACTERIA NONE SEEN Normal NONE SEEN [facility] Comment on above: Performed By: #### C BC #### [facility] [address] [place] [address] Dr. Krystal Friedman Bilirubin Ql (U) Negative Normal NEGATIVE [facility] Comment on above: Performed By: #### C BC #### [facility] [address] [place] [address] Dr. Krystal Friedman CAST NONE SEEN Normal NONE SEEN [facility] Comment on above: Performed By: #### C BC #### [facility] [address] [place] [address] Dr. Krystal Friedman Clarity (U) SL CLOUDY Abnormal CLEAR [facility] Comment on above: Performed By: #### C BC #### [facility] [address] [place] [address] Dr. Krystal Friedman Color (U) YELLOW Normal YELLOW [facility] Comment on above: Performed By: #### C BC #### [facility] [address] [place] [address] Dr. Krystal Friedman Crystals LM Nom (Urine sed) NONE SEEN Normal NONE SEEN [facility] Comment on above: Performed By: #### C BC #### [facility] [address] [place] [address] Dr. Krystal Friedman Epithelial cells LM Ql (Urine sed) RARE Normal NONE SEEN /RARE [facility] Comment on above: Performed By: #### C BC #### [facility] [address] [place] [address] Dr. Krystal Friedman Glucose Ql (U) Negative Normal NEGATIVE [facility] Comment on above: Performed By: #### C BC #### [facility] [address] [place] [address] Dr. Krystal Friedman Hemoglobin Ql (U) Negative Normal NEGATIVE [facility] Comment on above: Performed By: #### C BC #### [facility] [address] [address] [address] Krystal Friedman Ketones Ql (U) Negative Normal NEGATIVE [facility] Comment on above: Performed By: #### C BC #### [facility] [address] [place] [address] Dr. Krystal Friedman LEUKOCYTES Negative Normal NEGATIVE [facility] Comment on above: Performed By: #### C BC #### [facility] [address] [place] [address] Dr. Krystal Friedman MUCOUS NONE SEEN Normal NONE SEEN [facility] Comment on above: Performed By: #### C BC #### [facility] [address] [place] [address] Dr. Krystal Friedman Nitrite Ql (U) Negative Normal NEGATIVE [facility] Comment on above: Performed By: #### C BC #### [facility] [address] [place] [address] Dr. Krystal Friedman pH (U) 5.5 [pH] Normal 5-9 [facility] Comment on above: Performed By: #### C BC #### [facility] [address] [place] [address] Dr. Krystal Friedman RBC 0-2 Normal 0-2 [facility] Comment on above: Performed By: #### C BC #### [facility] [address] [place] [address] Dr. Krystal Friedman SPEC GRAVITY >=1.030 Abnormal 1.005-<=1.02 5 [facility] Comment on above: Performed By: #### C BC #### [facility] [address] [place] [address] Dr. Krystal Friedman UA PROTEIN Negative Normal NEGATIVE/ TRACE [facility] Comment on above: Performed By: #### C BC #### [facility] [address] [place] [address] Dr. Krystal Friedman Urobilinogen Qn (U) 0.2 {Jose'U}/dL Normal 0.2 - 1.0 [facility] Comment on above: Performed By: #### C BC #### [facility] [address], [place] [address] Dr. Krystal Friedman WBC NONE SEEN Normal NONE SEEN [facility] Comment on above: Performed By: #### C BC #### [facility] [address], [place] [address] Dr. Krystal Friedman SARS-CoV-2 (COVID-19) RNA NA A+probe Ql (Resp)on 05-13-2022 SARS-CoV-2 (COVID-19) RNA LUISITO+probe Ql (Unsp spec) Positive [facility] Other XR FINGER MIN 2 VIEWSon 12-16 XR FINGER MIN 2 VIEWS EXAM: XR FINGER MIN 2 VIEWS HISTORY: Left second phalanx Pain after trauma. COMPARISON: None. TECHNIQUE: AP, lateral and oblique views of the second digit are obtained. FINDINGS: Soft tissue thickening and irregularity at the distal second digit is present. No radiopaque foreign body. No acute fracture or dislocation is identified. Joint spaces are normally maintained. IMPRESSION: Soft tissue injury. No acute fracture or dislocation. Electronically authenticated by: EDDIE MARTINEZ Date: 2022-01-05 03:41 Normal [facility] Covid-19 PCR (CVDTB)on SARS-CoV-2 (COVID-19) RNA LUISITO+probe Ql (Unsp spec) Detected Critically abnormal NOT DETECTED [facility] Comment on above: Result Comment: This test is not yet approved or cleared by the [place] FDA. When there are no FDA-approved or cleared tests available, and other criteria are met, FDA can make tests available under an emergency access mechanism called an Emergency Use Authorization (EUA). The EUA for this test is supported by the [employer] of Health and Human Service's (HHS's) declaration that circumstances exist to justify the emergency use of in vitro diagnostics for the detection and/or diagnosis of the virus that causes COVID-19. This EUA will remain in effect (meaning this test can be used) for the duration of the COVID-19 declaration justifying emergency of IVDs, unless it is terminated or revoked by FDA (after which the test may no longer be used). Performed By: #### C BC #### [facility] [address] [address] [address] Krystal JEFFREY Quick Testingon 2020 Result Negative [facility] Other Quick Fluon 09-14-2021 FLUAV Ab CF (S) [Titer] Negative [facility] Other FLUBV Ab CF (S) [Titer] Negative [facility] Other Vital Signs Date Time Vital Sign Value Performing Clinician Facility 08-17-2022 14:35-0500 Body height 180.34 cm Kari Credorax Other [facility] Other 08-17-2022 14:35-0500 Body mass index (BMI) [Ratio] 39.05 kg/m2 Kari Credorax Other [facility] Other 08-17-2022 14:35-0500 Body temperature 97.8 [degF] Kari Pillai Other [facility] Other 08-17-2022 14:35-0500 Body weight 127.01 kg Kari Pillai Other [facility] Other 08-17-2022 14:35-0500 SaO2% (BldA) [Mass fraction] 97 % Kari Pillai Other [facility] Other 05-13-2022 13:10-0400 Body height 180.34 cm Coty Valera Other [facility] Other 05-13-2022 13:10-0400 Body temperature 101.2 [degF] Coty Valera Other [facility] Other 05-13-2022 13:10-0400 SaO2% (BldA) [Mass fraction] 96 % Coty Marieault Other [facility] Other 09-14-2021 11:15-0500 Body height 180.34 cm Kari Ginty Other [facility] Other 09-14-2021 11:15-0500 Body mass index (BMI) [Ratio] 39.05 kg/m2 Kari Ginty Other [facility] Other 09-14-2021 11:15-0500 Body temperature 98.6 [degF] Kari Ginty Other [facility] Other 09-14-2021 11:15-0500 Body weight 127.01 kg Kari Ginty Other [facility] Other 09-14-2021 11:15-0500 Respiratory rate 18 /min Kari Ginty Other [facility] Other 09-14-2021 11:15-0500 SaO2% (BldA) [Mass fraction] 93 % Kari Ginty Other [facility] Other Encounters Encounter Date Encounter Type Care Provider Facility Start: 06-17-2024 End: 06-17-2024 ambulatory Christi Bright Facility:[facility] Start: 06-17-2024 End: 06-17-2024 Patient encounter procedure Christi Bright [facility] Start: 01-08-2024 End: 01-08-2024 ambulatory JOEY MESSINA Not Available Start: 12-25-2023 End: 12-25-2023 ambulatory ANNMARIE MALONE Not Available Start: 09-18-2023 End: 09-19-2023 ambulatory ADEBAYO ROBLES Not Available Start: 09-12-2022 End: 09-13-2022 ambulatory FERMIN MESSINA Facility:[facility] Start: 08-17-2022 End: 08-17-2022 ambulatory Kari Pillai Other [facility] Start: 08-17-2022 Office outpatient visit 15 minutes Kari Pillai [facility] Start: 07-13-2022 End: 07-13-2022 ambulatory FERMIN MESSINA Facility:[facility] Start: 06-14-2022 End: 06-15-2022 ambulatory FERMIN MESSINA Facility:[facility] Start: 05-13-2022 End: 05-13-2022 ambulatory Coty Soto Other [facility] Other Start: 05-13-2022 Office outpatient visit 15 minutes Coty Valera [facility] Start: 01-05-2022 End: 01-05-2022 ambulatory FERMIN MESSINA Facility:[facility] Start: 09-18-2021 End: 09-18-2021 ambulatory FERMIN MESSINA Facility:[facility] Start: 09-14-2021 End: 09-14-2021 ambulatory Kari Hernandez Other [facility] Other Start: 09-14-2021 Office outpatient visit 15 minutes Kari Hernandez [facility] Procedures Date Procedure Procedure Detail Performing Clinician Start: 06-14-2022 PSA screening FERMIN MESSINA Comment on above: Performed By: #### C BC #### [facility] [address] [place] [address] Dr. Krystal Friedman Start: 04-13-2020 Ultrasonography guid ed transrectal cryoablation of prostate Christi Lue Start: 09-16-2017 Arthroscopy of knee Zari hy Lue Comment on above: left Start: 09-16-2015 Colonoscopy Christi Lue Comment on above: Dr. Payne Start: 09-16-1993 H/O: vasectomy Christi Azar tamika Immunizations Immunization Date Immunization Notes Care Provider Daily coates NEGATED: Highlighted row has not occurred!08-08-2022 SARS-CoV-2 mRNA (tozinameran 5y-11y) vaccine Christi Bright [facility] Payers Date Payer Category Payer Unknown [id number] 2.16.84 [id number] 1965 Unknown [id number] 2.16.84 [id number] 1965 Unknown [id number] 2.16.84 [id number] 1964 Unknown [id number] 2.16.84 [id number] 1964 Unknown [id number] 2.16.84 [id number] 1964 Unknown [id number] 2.16.84 [id number] 1964 Unknown [id number] 2.16.84 [id number] 1964 Unknown [id number] 2.16.840 .[id number] 1964 Unknown [id number] 2.16.840 .[id number] 1965 Unknown [id number] 2.16.8 [id number] 1960 Private Health Insurance [id number] 1959 Unknown [id number] Social History Date Type Detail Facility Unknown if ever smoked [facility] Other Sex Assigned At [facility] Start: 06-12-2023 Tobacco smoking status Never s moked tobacco (finding) [facility] Tobacco smoking status Never [facility] Evaluation note 08-17-2022 Note Date & Type Note Facility 08-17-2022 Evaluation note Encounter Date Diagnosis Assessment Notes Aug, Left knee pain, unspecified chronicity (ICD-10 - M25.562) Discussed diagnosis with patient. Kenalog injection provided today in office. Advised to start rx of Medrol dose pack to use as directed beginning tomorrow. May in addition take Tylenol as needed, rest ice, compression. No XR performed today, as I have suspicion that his Bakers cyst that he was previously diagnosed is causing pain. Advised to follow up with Ortho. Immediate evaluation in ER for signs/symptoms as discussed. Patient verbalizes understanding and is agreeable with treatment plan [facility] Other Evaluation note 05-13-2022 Note Date & Type Note Facility 05-13-2022 Evaluation note Encounter Date Diagnosis Assessment Notes Apr, Contact with and (suspected) exposure to other viral communicable diseases (ICD-10 - Z20.828) Apr, COVID-19 (ICD-10 - U07.1) Today you tested positive for the COVID virus. This mean you need to follow all CDC quarantine guidelines found at coronavirus.[place].gov. It is important to rest, increase fluids, and stay at home. Recommend contacting primary care provider and discussing best course of action if you have chronic health conditions. COVID POSITIVE education handout discharge instructions. given. Apr, Bronchitis (ICD-10 - J40) Bronchitis is inflammation of openings of lungs. It is not caused from bacteria. Antibiotics are not needed to treat this illness. Take medications as directed. Rest and increase fluid intake. Take meds with food to prevent stomach upset. Use inhaler as needed for SOB. Blood sugars may increase due to steroid treatment so eat lower amount of carbs. Follow up with primary care provider if symptoms do not improve with treatment plan, although it may take a few weeks for the cough to go away. [facility] Other Evaluation note 09-14-2021 Note Date & Type Note Facility 09-14-2021 Evaluation note Encounter Date Diagnosis Assessment Notes Aug, Contact with and (suspected) exposure to other viral communicable diseases (ICD-10 - Z20.828) Advised patient that COVID antigen test was negative today. Advised patient that tests are only accurate if experiencing symptoms at least 48-72 hours. Encouraged supportive care as directed, increase fluids and rest, Tylenol/Motrin as directed, OTC cough/cold remedies as directed on packaging, rx of Tessalon Perles ad needed, cool mist humidifier, throat lozenges. Discussed infection control practices such as good hand washing and mask wearing. Patient to follow up with PCP if sx persist or worsen despite treatment for COVID PCR test. Immediate eval for SOB, difficulty, chest pain, fevers that do not break with antipyretic or any other concerning symptoms as reviewed on patient education handout. Patient verbalizes understanding and is agreeable to treatment plan. Patient left in stable condition Aug, Other Additional time spent conducting pre-visit phone call, screening for symptoms, instructions on social distancing, application and removal of PPE, and cleaning of examination room, equipment and supplies was preformed. Patient education given for testing methodology and results. 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 Medical History Vit. D def. 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 Medical History Vit. D def. Medical History Lt knee Bakers cyst Medical History HTN Medical History ARTHRITIS Surgical History Vasectomy 1993 Surgical History Lt knee arthroscope per Dr.Step malcolm 09/03/17 Surgical History biopsy on prostate Surgical History b/l carpal tunnel release Hospitalization History see above [facility] Other Hospital Discharge instructions Note Date & Type Note Facility Hospital Discharge instructions No data available for this section [facility] Progress note Note Date & Type Note Facility Progress note No data available for this section [facility] Summary Purpose Family History No Family History Records FoundNo Family History Records FoundNo Family History Records Found No data available for this section Advance Directives No Advanced Directives Records FoundNo Advanced Directives Records FoundNo Advanced Directives Records Found Additional Source Comments REASON FOR VISIT (unrecogniz ed section and content) #7 ELLIOTT BUICK, B/A, SORE THR OAT, COUGHRED DODGE TIESHA, CONGESTION, COUGH, SOBLEFT KNEE PAIN (unrecognized sect ion and content) No Status Records FoundNo Status Records FoundNo Status Records Found INFORMATION SOURCE (unrecogn ized section and content) DATE CREATED AUTHOR 09/15/2022 [facility] pital DATE CREATED AUTHOR AUTHOR'S ORGANIZ ATION 01/09/2024 [facility] EPIC DATE CREATED AUTHOR AUTHOR'S ORGANIZ ATION 06/19/2024 [facility] Patient Care team informatio n (unrecognized section and content) Personnel Name: JOEY MESSINA CNP Address: Address: [address] [place] [address] FOR RECORDS PERTAINING TO PATIENTS WHO ARE OR HAVE BEEN ENROLLED IN A CHEMICAL DEPENDENCY/SUBSTANCEABUSE PROGRAM, SOME INFORMATION MAY BE OMITTED. This clinical summary was aggregated from multiple sources. Caution should be exercised in using it in the provision of clinical care. This summary normalizes information from multiple sources, and as a consequence, information in this document may materially change the coding, format and clinical context of patient data. In addition, data may be omitted in some cases. CLINICAL DECISIONS SHOULD BE BASED ON THE PRIMARY CLINICAL RECORDS. [facility]. provides no warranty or guarantee of the accuracy or completeness of information in this document.
--- NOTE | 2024-07-09 11:04 | XR_ITS ---
The [address] [address] Patient Name: BRITTANY PAUL MRN: [id number] date: 1965 Sex: M Assigned Patient Location: [facility] Current Patient Location: Accession/Order Number: [id number] Exam Date: 07/09/2024 11:15 Report Date: 07/13/2024 06:27 At the request of: JOEY MESSINA Procedure: XR cervical spine 2-3V EXAMINATION: XR cervical spine 2-3V HISTORY: Dizziness, Cervical Degenerative Disc Disease COMPARISON: No relevant comparison available. FINDINGS: BONES: Slight reversal normal cervical lordotic curvature involving C2-C5. Mild degenerative facet arthropathy C4-C5, C5-C6, C6-C7. DISC SPACES: Mild-moderate narrowing C2-C3, C3-C4, C6-C7. PARASPINOUS: Negative. No paraspinous abnormality is seen. OTHER: Negative. XR/XR cervical spine 2-3V IMPRESSION: 1. Moderate degenerative changes. 2. No appreciable acute abnormality. Electronically authenticated by: RUBY RAHMAN Date: 07/13/2024 06:27
== END 2024-07-09 10:38 | disposition home or self-care (01) ==
LOC: RAD 10:40
PROVIDERS: PCP Nurse Practitioner; Visit Provider Nurse Practitioner
DX: M50.30 Other cervical disc degeneration, unspecified cervical region (principal); R42 Dizziness and giddiness
CPT/HCPCS: 72040

== ENCOUNTER 2024-10-01 11:36 | Outpatient (OUT) | payer SELFPAY ==
--- OUTSIDE RECORDS SUMMARY | 2024-10-01 11:51 | XMS_ITS | CCD ---
Author Organization [facility] ion Partnership [facility] Care Team Providers Care Case Filler Name Role Phone Kari Hernandez Unavailable SotoJalilie Unavailable AICHHOLZ, BENEFIT SPECIALIST [place] Primary Care Unavailable PAY, DR MUIR Admitting Unavailable PAY, DR MUIR Attending Unavailable [place], DR DILMA Levi Consulting Unavailable PAY, DR MUIR Consulting Unavailable AICHHOLZ, BENEFIT SPECIALIST [place] Primary Care Unavailable DEMARCUS, DR ELÍAS Martinez Consulting Unavailable DEMARCUS, DR ELÍAS Mratinez Admitting Unavailable DEMARCUS, DR ELÍAS Martinez Attending Unavailable EDDIE MARTINEZ Consulting Unavailable AICHHOLZ, BENEFIT SPECIALIST [place] Admitting Unavailable AICHHOLZ, BENEFIT SPECIALIST [place] Attending Unavailable AICHHOLZ, BENEFIT SPECIALIST [place] Primary Care Unavailable AICHHOLZ, BENEFIT SPECIALIST [place] Consulting Unavailable AICHHOLZ, BENEFIT SPECIALIST [place] Admitting Unavailable AICHHOLZ, BENEFIT SPECIALIST [place] Attending Unavailable AICHHOLZ, BENEFIT SPECIALIST [place] Primary Care Unavailable AICHHOLZ, BENEFIT SPECIALIST [place] Consulting Unavailable AICHHOLZ, BENEFIT SPECIALIST [place] Admitting Unavailable AICHHOLZ, BENEFIT SPECIALIST [place] Attending Unavailable AICHHOLZ, BENEFIT SPECIALIST [place] Primary Care Unavailable AICHHOLZ, BENEFIT SPECIALIST [place] Consulting Unavailable Pillai Kari Unavailable AICHHOLZ, [place] Shelli Primary Care Physician Unallocated MD, Noms Provider Primary Care Provi orquidea Aichaida RESEARCH KENNEL SUPERVISOR, [place] Unavailable Christi Bright Attending Unavailable Christi Bright Attending Unavailable ADEBAYO ROBLES Attending Unavailable ADEBAYO ROBLES Referring Unavailable ANNMARIE MALONE Attending Unavailable AICHHOLZ, [place] Attending Unavailable AICHHOLZ, [place] Attending Unavailable Naderer MD, Tate Primary Care Provider [phone] Tate Green MD Primary Care Provider Medications Current Medications Medication Drug Class(es) Dates Sig (Normalized) Sig (Original) [id number] 200 actuat albuterol 0.09 mg/actuat metered dose [...] aspirin 81 mg delayed release oral tablet (6 sources) Platelet Aggregation Inhibitor, Nonsteroidal Anti-inflammatory Drug Start: 04-01-2020 take 1 tablet by mouth once daily aspirin 81 mg Oral EC Tab 81 mg = 1 tab(s), Oral, Daily, Refills(s) 0 Start Date: 04/01/20 Status: Ordered take 1 tablet by mouth once charles y Aspirin 81 81 MG 1 tablet Orally Once a day Active atenolol 25 mg oral tablet (14 sources) beta-Adrenergic Harry Start: 03-29-2020 End: 10-07-2024 take 1 tablet by mouth once daily atenolol (Tenormin) 25 MG tablet Indications: Primary hypertension (CMS/HCC) Take 1 tablet (25 mg) by mouth Daily 90 tablet 1 07/09/2024 10/07/2024 Active Atenolol Active atorvastatin 20 mg oral tablet (14 sources) HMG-CoA Reductase Inhibitor Start: 04-01-2020 End: 10-07-2024 take 1 tablet by mouth in the evening atorvastatin (Lipitor) 20 MG tablet Indications: Mixed hyperlipidemia (CMS/HCC) Take 1 tablet (20 mg) by mouth in the evening 90 tablet 1 07/09/2024 10/07/2024 Active azithromycin 250 mg oral tablet (2 sources) [...] Refill(s) 0 Start Date: 04/01/20 Status: Ordered cholecalciferol 0.025 mg oral capsule (8 sources) Vitamin D take 1 capsule by mouth once daily cholecalciferol (Vitamin D-3) 25 MCG (1000 UT) capsule Take 1,000 Units by mouth Daily Active dextromethorphan hydrobromide 30 mg / pyrilamine maleate 30 mg oral tablet (1 source) Uncompetitive W-imbslt-W-aspartat e Receptor Antagonist, Sigma-1 Agonist Start: 2021 take 1 tablet by mouth every six hours [place] DMT 30-30 MG 1 tablet Orally every 6 hours for 7 days Apr, Active docusate sodium 100 mg oral capsule (1 source) Start: 2019 take 1 capsule by mouth twice daily as needed for constipation Colace 100 mg Cap 100 mg = 1 cap(s), Oral, BID, PRN for constipation Start Date: 04/01/20 Status: Ordered famotidine 20 mg oral tablet (11 sources) Histamine-2 Receptor Antagonist Start: 2019 End: 2024 famotidine (Pepcid) 20 MG tablet Indications: Gastroesophageal reflux disease without esophagitis Take 1 tablet (20 mg) by mouth 1 (one) time each day at the same time 1 (one) time each day at the same time 90 tablet 1 07/09/2024 10/07/2024 Active Fish Oils (9 sources) Start: 2019 take 1 capsule by mouth once daily Fish Oil 1200 mg oral capsule 1,200 mg = 1 cap(s), Oral, Daily, Refills(s) 0 Start Date: 04/01/20 Status: Ordered omega-3 (Fish Oi l) 1200 MG capsule 1 capsule 1 (one) time each day at the same time Active loratadine 10 mg oral tablet (9 sources) Start: 04-01-2020 take 1 tablet by mouth once daily loratadine 10 mg Tab 10 mg = 1 tab(s), Oral, Daily, Refills(s) 0 Start Date: 04/01/20 Status: Ordered losartan potassium 50 mg oral tablet (14 sources) Angiotensin 2 Receptor Harry Start: 03-29-2020 End: 10-07-2024 take 1 tablet by mouth in the morning losartan (Cozaar) 50 MG tablet Indications: Primary hypertension (CMS/HCC) Take 1 tablet (50 mg) by mouth in the morning and 1 tablet (50 mg) before bedtime. 180 tablet 1 07/09/2024 10/07/2024 Active Losartan Potassi um Active magnesium oxide 400 mg oral tablet (8 sources) Start: 06-03-2024 End: 09-01-2024 take 1 tablet by mouth once daily MAGnesium-Oxide 400 (240 Mg) MG tablet Indications: Magnesium deficiency Take 1 tablet (400 mg) by mouth Daily 90 tablet 1 06/03/2024 09/01/2024 Active Start: 08-08-2022 magnesium oxid e Oral, Refills(s) 0 Start Date: 08/08/22 Status: Ordered meloxicam 15 mg oral tablet (14 sources) Nonsteroidal Anti-inflammatory Drug Start: 03-04-2024 End: 07-09-2024 take 0.5 tablet by mouth twice daily meloxicam (Mobic) 15 MG tablet Indications: Other chronic pain TAKE 1/2 TABLET BY MOUTH TWICE A DAY 90 tablet 1 07/09/2024 Active Start: 04-01-2020 take 1 tablet by chandler th twice daily meloxicam 15 mg Tab 15 mg = 1 tab(s), Oral, BID, Refills(s) 0 Start Date: 04/01/20 Status: Ordered take 1 tablet by chandler th every twenty-four hours Meloxicam 15 MG 1 Tablet By Mouth daily Active take 1 tablet by chandler th every twelve hours Meloxicam 7.5 MG 1 tablet Orally [...] a day for 6 days Dec, Not-Taking montelukast 10 mg oral tablet (11 sources) Leukotriene Receptor Antagonist Start: 09-12-2023 End: 10-07-2024 take 1 tablet by mouth at bedtime montelukast (Singulair) 10 MG tablet Indications: Environmental and seasonal allergies Take 1 tablet (10 mg) by mouth at bedtime 90 tablet 1 07/09/2024 10/07/2024 Active Multivital (3 sources) Multivital Activ e Stool Softener (3 sources) Stool Softener Active tiZANidine 4 mg oral tablet (14 sources) Central alpha-2 Adrenergic Agonist Start: 03-04-2024 End: 10-07-2024 tiZANidine (Zanaflex) 4 MG tablet Indications: Chronic tension-type headache, not intractable Take 1 tablet (4 mg) by mouth as needed at bedtime for muscle spasms 90 tablet 1 07/09/2024 10/07/2024 Active Start: 08-08-2022 take 1 mg by mouth t hree times daily tizanidine 4 mg oral capsule mg cap(s), Oral, TID, Refills(s) 0 Start Date: 08/08/22 Status: Ordered tiZANidine HCl A ctive traMADol (1 source) Opioid Agonist traMADol HCl Act lenora vitamin b12 0.5 mg oral tablet (11 sources) Vitamin B12 take 1 tablet by mouth in the morning cyanocobalamin (Vitamin B-12) 500 MCG tablet Take 500 mcg by mouth in the morning. Active Vitamin B 12 Act lenora Completed/Discontinued Medications [...] Active Problems Problem Classification Problem Date Documented Date Episodic/Chronic Conditions associated with dizziness or vertigo (10 sources) Dizziness; Translations: [Dizziness and giddiness] Onset: 07-09-2024 08-24-2024 Episodic Disorders of lipid metabolism (11 sources) Hyperlipidemia, unspecified; Translations: [Mixed hyperlipidemia] Onset: 06-16-2022 09-12-2023 Chronic Esophageal disorders (10 sources) Gastroesophageal reflux disease without esophagitis; Translations: [Gastro-esophageal reflux disease without esophagitis] Onset: 01-08-2024 01-08-2024 Chronic Essential hypertension (16 sources) Essential (primary) hypertension; Translations: [Hypertensive disorder] Onset: 06-16-2022 03-23-2020 Chronic Headache; including migraine (10 sources) Chronic tension-type headache; Translations: [Chronic tension-type headache, not intractable] Onset: 09-12-2023 09-12-2023 Chronic Hyperplasia of prostate (18 sources) Benign prostatic hypertrophy with outflow obstruction; Translations: [Prostate nodule] Onset: 09-18-2023 04-27-2020 Chronic Immunizations and screening for infectious disease (11 sources) Contact with and (suspected) exposure to other viral communicable diseases; Translations: [Encounter for immunization] Onset: 09-14-2021 Resolved: 05-13-2022 Episodic Nausea and vomiting (1 source) Nausea with vomiting, unspecified; Translations: [NAUSEA WITH VOMITING UNSPECIFIED] Onset: 07-17-2022 Episodic Osteoarthritis (16 sources) Primary osteoarthritis, left shoulder; Translations: [Arthropathy, unspecified, shoulder region] Onset: 09-18-2023 09-18-2023 Chronic Other aftercare (1 source) long-term (current) use of oral hypoglycemic drugs; Translations: [CARE HOME USE ORAL HYPOGLYCEMIC DX] Onset: 07-17-2022 Episodic Other aftercare (1 source) Other nursing home (current) drug therapy; Translations: [OTH CARE HOME CURRENT DRUG THERAPY] Onset: 07-17-2022 Episodic Other connective tissue disease (4 sources) Cramp and spasm; Translations: [CRAMP AND SPASM] Onset: 06-14-2022 Episodic Other ear and sense organ disorders (1 source) Bilateral deafness 03-23-2020 Chronic Other ear and sense organ disorders (8 sources) Sensorineural hearing loss, bilateral; Translations: [Sensorineural hearing loss, bilateral] Onset: 09-18-2023 09-18-2023 Chronic Other injuries and conditions due to external causes (1 source) H/O: head injury 03-23-2020 Episodic Other nervous system disorders (10 sources) Chronic pain; Translations: [Other chronic pain] Onset: 09-12-2023 09-12-2023 Chronic Other nervous system disorders (8 sources) Carpal tunnel syndrome; Translations: [Carpal tunnel syndrome, unspecified upper limb] Onset: 09-18-2023 09-18-2023 Chronic Other nervous system disorders (8 sources) Lesion of medial popliteal nerve, left lower limb; Translations: [Other mononeuritis of lower limb] Onset: 09-18-2023 09-18-2023 Chronic Other nervous system disorders (8 sources) Neuropathy of lower limb; Translations: [Lesion of lateral popliteal nerve, unspecified lower limb] Onset: 09-18-2023 09-18-2023 Chronic Other nervous system disorders (8 sources) Left tarsal tunnel syndrome; Translations: [Tarsal tunnel syndrome, left lower limb] Onset: 09-18-2023 09-18-2023 Chronic Other nervous system disorders (6 sources) Ataxia; Translations: [Ataxia, unspecified] 10-01-2024 Episodic Other nutritional; endocrine; and metabolic disorders (4 sources) Hypomagnesemia; Translations: [HYPOMAGNESEMIA] Onset: 09-12-2022 Chronic Other nutritional; endocrine; and metabolic disorders (9 sources) Obesity caused by energy imbalance; Translations: [Morbid (severe) obesity due to excess calories] Onset: 07-09-2024 07-09-2024 Chronic Other nutritional; endocrine; and metabolic disorders (9 sources) Body mass index 30+ - obesity; Translations: [Body mass index (BMI) 39.0-39.9, adult] Onset: 07-09-2024 07-09-2024 Chronic Other screening for suspected conditions (not mental disorders or infectious disease) (13 sources) Encounter for screening for malignant neoplasm of prostate; Translations: [Raised prostate specific antigen] Onset: 06-16-2022 04-27-2020 Episodic Other upper respiratory disease (11 sources) Allergic disposition; Translations: [Other allergic rhinitis] Onset: 09-12-2023 09-12-2023 Chronic Spondylosis; intervertebral disc disorders; other back problems (8 sources) Degeneration of cervical intervertebral disc; Translations: [Other cervical disc degeneration, unspecified cervical region] Onset: 07-09-2024 07-09-2024 Chronic Spondylosis; intervertebral disc disorders; other back problems (3 sources) Dorsalgia, unspecified; Translations: [DORSALGIA UNSPECIFIED] Onset: 07-13-2022 Episodic Unclassified (2 sources) CONTACT W/AND (SUSP) EXPOS COVID-19; Translations: [CONTACT W/AND (SUSP) EXPOS COVID-19] Onset: 09-21-2021 Viral infection (2 sources) COVID-19; Translations: [COVID-19] Onset: 09-21-2021 Resolved: 05-13-2022 Past or Other Problems Problem Classification Problem Date Documented Da te Episodic/Chronic Calculus of urinary tract (10 sources) Calculus of kidney; Translations: [Kidney stone] Onset: 2 08-08-2022 Episodic Chronic obstructive pulmonary disease and bronchiectasis (1 source) Bronchitis, not specified as acute or chronic Onset: 2 Resolved: 2 Episodic Diabetes mellitus without complication (11 sources) Prediabetes; Translations: [Prediabetes] Onset: 2 01-02-2024 Episodic E Codes: Cut/pierceb (1 source) Contact with other sharp object(s), not elsewhere classified, initial encounter; Translations: [CNTC OTH SHRP OB NOT ELSW CLASS INI] Onset: 2 Episodic Genitourinary symptoms and ill-defined conditions (18 sources) Must strain to pass urine; Translations: [Nocturia] Onset: 4 03-23-2020 Episodic Hemorrhoids (9 sources) Internal hemorrhoids; Translations: [Other hemorrhoids] Onset: 4 04-04-2020 Episodic Joint disorders and dislocations; trauma-related (8 sources) Tear of medial meniscus of knee; Translations: [Other tear of medial meniscus, current injury, left knee, initial encounter] Onset: 4 09-18-2023 Episodic Nutritional deficiencies (9 sources) Magnesium deficiency; Translations: [Magnesium deficiency] Onset: 4 10-10-2023 Episodic Open wounds of extremities (4 sources) Laceration without foreign body of left index finger without damage to nail, initial encounter; Translations: [LAC W/O FB LT IF W/O DMG NAIL INIT] Onset: 2 Episodic Other connective tissue disease (8 sources) Weakness of foot; Translations: [Other symptoms and signs involving the musculoskeletal system] Onset: 4 09-18-2023 Episodic Other ear and sense organ disorders (8 sources) Bilateral tinnitus; Translations: [Tinnitus, bilateral] Onset: 4 09-18-2023 Episodic Other nervous system disorders (8 sources) Paresthesia of foot ; Translations: [Paresthesia of skin] Onset: 4 09-18-2023 Episodic Other non-traumatic joint disorders (9 sources) Pain in left knee; Translations: [Pain in joint, lower leg] Onset: 4 Episodic Other upper respiratory infections (8 sources) Acute upper respiratory infection; Translations: [Acute upper respiratory infection, unspecified] Onset: 4 Resolved: 4 01-08-2024 Episodic Phlebitis; thrombophlebitis and thromboembolism (8 sources) Thrombophlebitis; Translations: [Phlebitis and thrombophlebitis of unspecified site] Onset: 4 09-18-2023 Episodic Unclassified (1 source) CONTACT W/AND (SUSP) EXPOS COVID-19; Translations: [CONTACT W/AND (SUSP) EXPOS COVID-19] Onset: 2 Results Test Name Value Interpretation Reference Range Facility MAGNESIUMon 09-12-2022 Magnesium [Mass/Vol] 1.9 mg/dL Normal 1.8-2.4 [facility] Comment on above: Performed By: #### C BC #### [facility] [address] [place] [address] Dr. Krystal Friedman CBC AUTO DIFFon 07-13-2022 BASO # 0.1 103/ul Normal 0.0-0.1 [facility] Comment on above: Performed By: #### C BC #### [facility] [address] [place] [address] Dr. Krystal Friedman Basophils/100 WBC (Bld) 1.3 % Normal 0.2-2.0 [facility] Comment on above: Performed By: #### C BC #### [facility] [address] [place] [address] Dr. Krystal Friedman EO # 0.2 103/ul Normal 0.0-0.7 [facility] Comment on above: Performed By: #### C BC #### [facility] [address] [place] [address] Dr. Krystal Friedman Eosinophils/100 WBC (Bld) 2.6 % Normal 0.9-7.0 [facility] Comment on above: Performed By: #### C BC #### [facility] [address] [place] [address] Dr. Krystal Friedman Erythrocyte distribution width (RBC) [Ratio] 12.9 % Normal 11.0-15.0 [facility] Comment on above: Performed By: #### C BC #### [facility] [address] [place] [address] Dr. Krystal Friedman Hematocrit (Bld) [Volume fraction] 43.1 % Normal 42.0-54.0 [facility] Comment on above: Performed By: #### C BC #### [facility] [address] [place] [address] Dr. Krystal Friedman Hemoglobin (Bld) [Mass/Vol] 14.5 g/dL Normal 14.0-18.0 [facility] Comment on above: Performed By: #### C BC #### [facility] [address] [place] [address] Dr. Krystal Friedman IG # 0.02 10e3/ul Normal 0.00-0.03 [facility] Comment on above: Performed By: #### C BC #### [facility] [address] [place] [address] Dr. Krystal Friedman IG % 0.3 % Normal 0.0-0.5 [facility] Comment on above: Performed By: #### C BC #### [facility] [address] [place] [address] Dr. Krystal Friedman LYMPH # 2.2 103/ul Normal 1.2-3.8 [facility] Comment on above: Performed By: #### C BC #### [facility] [address] [place] [address] Dr. Krystal Friedman Lymphocytes/100 WBC (Bld) 31.0 % Normal 20.5-60.0 [facility] Comment on above: Performed By: #### C BC #### [facility] [address] [place] [address] Dr. Krystal Friedman MANUAL DIFF REQ NO Normal [facility] Comment on above: Performed By: #### C BC #### [facility] [address] [place] [address] Dr. Krystal Friedman MCH (RBC) [Entitic mass] 30.2 pg Normal 25.9-34.0 [facility] Comment on above: Performed By: #### C BC #### [facility] [address] [address] [address] Krystal Friedman MCHC (RBC) [Mass/Vol] 33.6 g/dL Normal 29.9-35.2 [facility] Comment on above: Performed By: #### C BC #### [facility] [address] [place] [address] Dr. Krystal Friedman MCV (RBC) [Entitic vol] 89.8 fL Normal 80.0-94.0 [facility] Comment on above: Performed By: #### C BC #### [facility] [address] [place] [address] Dr. Krystal Friedman MONO # 0.7 103/ul Normal 0.3-0.8 [facility] Comment on above: Performed By: #### C BC #### [facility] [address] [place] [address] Dr. Krystal Friedman Monocytes/100 WBC (Bld) 9.6 % Normal 1.7-12.0 [facility] Comment on above: Performed By: #### C BC #### [facility] [address] [place] [address] Dr. Krystal Friedman NEUT # 3.9 103/ul Normal 1.4-6.5 [facility] Comment on above: Performed By: #### C BC #### [facility] [address] [place] [address] Dr. Krystal Friedman Neutrophils/100 WBC (Bld) 55.2 % Normal 43.0-75.0 [facility] Comment on above: Performed By: #### C BC #### [facility] [address] [place] [address] Dr. Krystal Friedman Platelet mean volume (Bld) [Entitic vol] 10.1 fL Normal 9.5-13.5 [facility] Comment on above: Performed By: #### C BC #### [facility] [address] [place] [address] Dr. Krystal Friedman PLT 274 103/ul Normal 150-450 [facility] Comment on above: Performed By: #### C BC #### [facility] [address] [place], [place] [address] Dr. Krystal Friedman RBC 4.80 106/ul Normal 4.70-6.10 [facility] Comment on above: Performed By: #### C BC #### [facility] [address] [place], [place] [address] Dr. Krystal Friedman WBC 7.0 103/ul Normal 4.0-11.0 [facility] Comment on above: Performed By: #### C BC #### [facility] [address] [place], [place] [address] ABD/PELV W CONon [...] DILMA SIU Date: 2022-07-13 08:34 Normal [facility] URINE PROFILEon 10-28-202 2 Bilirubin Ql (U) Negative Normal NEGATIVE [facility] Comment on above: Performed By: #### C BC #### [facility] [address] [place] [address] Dr. Krystal Friedman Clarity (U) CLEAR Normal CLEAR [facility] Comment on above: Performed By: #### C BC #### [facility] [address] [place] [address] Dr. Krystal Friedman Color (U) DK. YELLOW Normal YELLOW [facility] Comment on above: Performed By: #### C BC #### [facility] [address] [place] [address] Dr. Krystal Friedman ERUAHD A micrscopic examina tion will be performed if indicated. Normal [facility] Comment on above: Performed By: #### C BC #### [facility] [address] [place] [address] Dr. Krystal Friedman Glucose Ql (U) Negative Normal NEGATIVE [facility] Comment on above: Performed By: #### C BC #### [facility] [address] [place] [address] Dr. Krystal Friedman Hemoglobin Ql (U) LARGE Abnormal NEGATIVE [facility] Comment on above: Performed By: #### C BC #### [facility] [address] [place] [address] Dr. Krystal Friedman Ketones Ql (U) Negative Normal NEGATIVE [facility] Comment on above: Performed By: #### C BC #### [facility] [address] [place] [address] Dr. Krystal Friedman LEUKOCYTES Negative Normal NEGATIVE [facility] Comment on above: Performed By: #### C BC #### [facility] [address] [place] [address] Dr. Krystal Friedman Nitrite Ql (U) Negative Normal NEGATIVE [facility] Comment on above: Performed By: #### C BC #### [facility] [address] [place] [address] Dr. Krystal Friedman pH (U) 5.5 [pH] Normal 5-9 [facility] Comment on above: Performed By: #### C BC #### [facility] [address] [place] [address] Dr. Krystal Friedman SPEC GRAVITY 1.025 Normal 1.005-<=1.02 5 [facility] Comment on above: Performed By: #### C BC #### [facility] [address] [place] [address] Dr. Krystal Friedman UA PROTEIN TRACE Normal NEGATIVE/ TRACE [facility] Comment on above: Performed By: #### C BC #### [facility] [address] [place] [address] Dr. Krystal Friedman UR MICRO IND INDICATED Normal [facility] Comment on above: Performed By: #### C BC #### [facility] [address] [place] [address] Dr. Krystal Friedman Urobilinogen Qn (U) 0.2 {Jose'U}/dL Normal 0.2 - 1.0 [facility] Comment on above: Performed By: #### C BC #### [facility] [address] [place] [address] Dr. Krystal Friedman LACTATE/LACTIC ACIDon 2021 Lactate [Moles/Vol] 2.1 mmol/L Critically high 0.4-1.9 [facility] Comment on above: Performed By: #### L ACT #### [facility] [address] [place] [address] Dr. Krystal Friedman LIPASEon 07-13-2022 Lipase [Catalytic activity/Vol] 119.0 U/L Normal 73.0-393.0 [facility] Comment on above: Performed By: #### L IPA, HSTROPN, CMP #### [facility] [address] [place] [address] Dr. Krystal Friedman PROF 14(COMP METB)on 022 Albumin [Mass/Vol] 4.1 g/dL Normal 3.4-5.0 [facility] Comment on above: Performed By: #### L IPA, HSTROPN, CMP #### [facility] [address] [place] [address] Dr. Krystal Friedman Albumin/Globulin [Mass ratio] 1.2 {ratio} Normal [facility] Comment on above: Performed By: #### L IPA, HSTROPN, CMP #### [facility] [address] [place] [address] Dr. Krystal Friedman ALP [Catalytic activity/Vol] 50 U/L Normal 46-116 [facility] Comment on above: Performed By: #### L IPA, HSTROPN, CMP #### [facility] [address] [place] [address] Dr. Krystal Friedman ALT [Catalytic activity/Vol] 31 U/L Normal 16-63 [facility] Comment on above: Performed By: #### L IPA, HSTROPN, CMP #### [facility] [facility] [address] [place] [address] Dr. Krystal Friedman Anion gap [Moles/Vol] 13.1 mmol/L Normal [facility] Comment on above: Performed By: #### L IPA, HSTROPN, CMP #### [facility] [address] [place] [address] Dr. Krystal Friedman AST [Catalytic activity/Vol] 19 U/L Normal 15-37 [facility] Comment on above: Performed By: #### L IPA, HSTROPN, CMP #### [facility] [address] [place] [address] Dr. Krystal Friedman Bilirubin [Mass/Vol] 0.4 mg/dL Normal 0.2-1.0 [facility] Comment on above: Performed By: #### L IPA, HSTROPN, CMP #### [facility] [address] [place] [address] Dr. Krystal Friedman Calcium [Mass/Vol] 9.2 mg/dL Normal 8.5-10.1 [facility] Comment on above: Performed By: #### L IPA, HSTROPN, CMP #### [facility] [address] [place] [address] Dr. Krystal Friedman Chloride [Moles/Vol] 108 mmol/L Critically high 98-107 [facility] Comment on above: Performed By: #### L IPA, HSTROPN, CMP #### [facility] [address] [place] [address] Dr. Krystal Friedman CO2 [Moles/Vol] 25.7 mmol/L Normal 21.0-32.0 [facility] Comment on above: Performed By: #### L IPA, HSTROPN, CMP #### [facility] [address] [place] [address] Dr. Krystal Friedman Creatinine [Mass/Vol] 1.48 mg/dL Critically high 0.70-1.30 [facility] Comment on above: Performed By: #### L IPA, HSTROPN, CMP #### [facility] [address] [place] [address] Dr. Krystal Friedman EGFR-AF GAMBIAN 59 mL/min/1.73m2 Critically low >=60 [facility] Comment on above: Performed By: #### L IPA, HSTROPN, CMP #### [facility] [address] [place] [address] Dr. Krystal Friedman EGFR-NON AF GAMBIAN 49 mL/min/1.73m2 Critically low >=60 [facility] Comment on above: Performed By: #### L IPA, HSTROPN, CMP #### [facility] [address] [place] [address] Dr. Krystal Friedman Globulin (S) [Mass/Vol] 3.4 g/dL Normal [facility] Comment on above: Performed By: #### L IPA, HSTROPN, CMP #### [facility] [address] [place] [address] Dr. Krystal Friedman Glucose [Mass/Vol] 135 mg/dL Critically high 74-106 [facility] Comment on above: Performed By: #### L IPA, HSTROPN, CMP #### [facility] [address] [place] [address] Dr. Krystal Friedman Potassium [Moles/Vol] 3.8 mmol/L Normal 3.5-5.1 [facility] Comment on above: Performed By: #### L IPA, HSTROPN, CMP #### [facility] [address] [place] [address] Dr. Krystal Friedman Protein [Mass/Vol] 7.5 g/dL Normal 6.4-8.2 [facility] Comment on above: Performed By: #### L IPA HSTROPN, CMP #### [facility] [address] [place] [address] Dr. Krystal Friedman Sodium [Moles/Vol] 143 mmol/L Normal 136-145 [facility] Comment on above: Performed By: #### L IPA HSTROPN, CMP #### [facility] [address] [place] [address] Dr. Krystal Friedman Urea nitrogen [Mass/Vol] 21.0 mg/dL Critically high 7.0-18.0 [facility] Comment on above: Performed By: #### L IPA HSTROPN, CMP #### [facility] [address] [place] [address] Dr. Krystal Friedman Urea nitrogen/Creatinin e [Mass ratio] 14.2 mg/mg Normal [facility] Comment on above: Performed By: #### L IPA HSTROPN, CMP #### [facility] [address] [place] [address] Dr. Krystal Friedman TROPONIN, HIGH SENSITIVITYon 07-13-2022 HSTROP 7.7 pg/mL Normal 4.0-76.1 [facility] Comment on above: Result Comment: CUT- OFF POINTS HAVE BEEN ESTABLISHED BASED ON THE FOURTH UNIVERSAL DEFINITIONS OF MYOCARDIAL INFARCTION. THE UPPER REFERENCE LIMIT (URL) OF TROPONIN, DEFINED THE 99TH PERCENTILE OF cTnI DISTRIBUTION IN A REFERENCE POPULATION, HAS BEEN CONFIRMED THE DECISION THRESHOLD FOR PA DIAGNOSIS. Performed By: #### L IPA, HSTROPN, CMP #### [facility] [address] [place] [address] Dr. Krystal Friedman URINE MICROSCOPIC ONLYon BACTERIA TRACE Abnormal NONE SEEN [facility] Comment on above: Performed By: #### C BC #### [facility] [address] [address] [address] Krystal Friedman Bacteria identified Cx Nom (U) NOT INDICATED Normal [facility] Comment on above: Performed By: #### C BC #### [facility] [address] [place] [address] Dr. Krystal Friedman CAST NONE SEEN Normal NONE SEEN [facility] Comment on above: Performed By: #### C BC #### [facility] [address] [place] [address] Dr. Krystal Friedman Crystals LM Nom (Urine sed) NONE SEEN Normal NONE SEEN [facility] Comment on above: Performed By: #### C BC #### [facility] [address] [place] [address] Dr. Krystal Friedman Epithelial cells LM Ql (Urine sed) RARE Normal NONE SEEN /RARE [facility] Comment on above: Performed By: #### C BC #### [facility] [address] [place] [address] Dr. Krystal Friedman MUCOUS MODERATE Abnormal NONE SEEN [facility] Comment on above: Performed By: #### C BC #### [facility] [address] [place] [address] Dr. Krystal Friedman RBC 10-20 Abnormal 0-2 [facility] Comment on above: Performed By: #### C BC #### [facility] [address] [place] [address] Dr. Krystal Friedman WBC 2-5 Abnormal NONE SEEN [facility] Comment on above: Performed By: #### C BC #### [facility] [address] [place] [address] Dr. Krystal Friedman MICROALBUMIN URINEon 022 Albumin, Urine 31.8 ug/mL Normal Not Estab. [facility] Comment on above: Performed By: #### C BC #### [facility] [address] [place] [address] Dr. Krystal Friedman CBC AUTO DIFFon 06-14-2022 BASO # 0.1 103/ul Normal 0.0-0.1 [facility] Comment on above: Performed By: #### C BC #### [facility] [address] [place] [address] Dr. Krystal Friedman Basophils/100 WBC (Bld) 1.6 % Normal 0.2-2.0 [facility] Comment on above: Performed By: #### C BC #### [facility] [address] [place] [address] Dr. Krystal Friedman EO # 0.2 103/ul Normal 0.0-0.7 [facility] Comment on above: Performed By: #### C BC #### [facility] [address] [place] [address] Dr. Krystal Friedman Eosinophils/100 WBC (Bld) 4.5 % Normal 0.9-7.0 [facility] Comment on above: Performed By: #### C BC #### [facility] [address] [place] [address] Dr. Krystal Friedman Erythrocyte distribution width (RBC) [Ratio] 13.3 % Normal 11.0-15.0 [facility] Comment on above: Performed By: #### C BC #### [facility] [address] [place] [address] Dr. Krystal Friedman Hematocrit (Bld) [Volume fraction] 41.3 % Critically low 42.0-54.0 [facility] Comment on above: Performed By: #### C BC #### [facility] [address] [place] [address] Dr. Krystla Friedman Hemoglobin (Bld) [Mass/Vol] 13.8 g/dL Critically low 14.0-18.0 [facility] Comment on above: Performed By: #### C BC #### [facility] [address] [place] [address] Dr. Krystal Friedman IG # 0.01 10e3/ul Normal 0.00-0.03 [facility] Comment on above: Performed By: #### C BC #### [facility] [address] [place] [address] Dr. Krystal Friedman IG % 0.3 % Normal 0.0-0.5 [facility] Comment on above: Performed By: #### C BC #### [facility] [address] [place] [address] Dr. Krystal Friedman LYMPH # 1.2 103/ul Normal 1.2-3.8 [facility] Comment on above: Performed By: #### C BC #### [facility] [address] [place] [address] Dr. Krystal Friedman Lymphocytes/100 WBC (Bld) 32.0 % Normal 20.5-60.0 [facility] Comment on above: Performed By: #### C BC #### [facility] [address] [place] [address] Dr. Krystal Friedman MANUAL DIFF REQ NO Normal [facility] Comment on above: Performed By: #### C BC #### [facility] [address] [place] [address] Dr. Krystal Friedman MCH (RBC) [Entitic mass] 30.3 pg Normal 25.9-34.0 [facility] Comment on above: Performed By: #### C BC #### [facility] [address] [place] [address] Dr. Krystal Friedman MCHC (RBC) [Mass/Vol] 33.4 g/dL Normal 29.9-35.2 [facility] Comment on above: Performed By: #### C BC #### [facility] [address] [place] [address] Dr. Krystal Friedman MCV (RBC) [Entitic vol] 90.8 fL Normal 80.0-94.0 [facility] Comment on above: Performed By: #### C BC #### [facility] [address] [place] [address] Dr. Krystal Friedman MONO # 0.4 103/ul Normal 0.3-0.8 [facility] Comment on above: Performed By: #### C BC #### [facility] [address] [place] [address] Dr. Krystal Friedman Monocytes/100 WBC (Bld) 10.1 % Normal 1.7-12.0 [facility] Comment on above: Performed By: #### C BC #### [facility] [address] [place] [address] Dr. Krystal Friedman NEUT # 2.0 103/ul Normal 1.4-6.5 [facility] Comment on above: Performed By: #### C BC #### [facility] [address] [address] [address] Krystal Friedman Neutrophils/100 WBC (Bld) 51.5 % Normal 43.0-75.0 [facility] Comment on above: Performed By: #### C BC #### [facility] [address] [address] [address] Krystal Friedman Platelet mean volume (Bld) [Entitic vol] 9.6 fL Normal 9.5-13.5 [facility] Comment on above: Performed By: #### C BC #### [facility] [address] [address] [address] Krystal Friedman PLT 211 103/ul Normal 150-450 [facility] Comment on above: Performed By: #### C BC #### [facility] [address] [address] [address] Krystal Friedman RBC 4.55 106/ul Critically low 4.70-6.10 [facility] Comment on above: Performed By: #### C BC #### [facility] [address] [address] [address] Krystal Friedman WBC 3.8 103/ul Critically low 4.0-11.0 [facility] Comment on above: Performed By: #### C BC #### [facility] [address] [address] [address] Krystal Friedman CPKon 06-14-2022 CK [Catalytic activity/Vol] 307 U/L Normal 39-308 [facility] Comment on above: Performed By: #### M G, CMP, LIPID, CK #### [facility] [address] [id number] Krystal Friedman GLYCOHEMOGLOBIN A1Con 2021 ADA RECOMMENDATION SEE BELOW Normal [facility] Comment on above: Result Comment: ADA RECOMMENDED LIMIT 4.0 - 6.0 ADA THERAPEUTIC TARGET < 7.0 ACTION SUGGESTED > 7.0 Performed By: #### C BC #### [facility] [address] [address] [address] Krystal Friedman Glucose [Mass/Vol] 108 mg/dL Normal [facility] Comment on above: Performed By: #### C BC #### [facility] [address] [address] [address] Krystal Friedman HbA1c (Bld) [Mass fraction] 5.4 % Normal 4.5-6.2 [facility] Comment on above: Performed By: #### C BC #### [facility] [address] [address] [address] Krystal Friedman LIPID PROFILEon 06-14-2022 CHOL-HDL RATIO NORM SEE BELOW Normal [facility] Comment on above: Result Comment: 3.3 - 4.4 LOW RISK 4.4 - 7.1 AVERAGE RISK 7.1 - 11.0 MODERATE RISK >11.0 HIGH RISK Performed By: #### M G, CMP, LIPID, CK #### [facility] [address] [address] [address] Krystal Friedman Cholesterol [Mass/Vol] 134 mg/dL Normal <=200 [facility] Comment on above: Performed By: #### M G, CMP, LIPID, CK #### [facility] [address] [address] [address] Krystal Friedman Cholesterol in HDL [Mass/Vol] 35 mg/dL Critically low 40-60 [facility] Comment on above: Performed By: #### M G, CMP, LIPID, CK #### [facility] [address] [address] [address] Krystal Friedman Cholesterol in LDL [Mass/Vol] 78.2 mg/dL Normal [facility] Comment on above: Performed By: #### M G, CMP, LIPID, CK #### [facility] [address] [address] [address] Krystal Friedman Cholesterol.total/ Cholesterol in HDL [Mass ratio] 3.8 {ratio} Normal [facility] Comment on above: Performed By: #### M G, CMP, LIPID, CK #### [facility] [address] [address] [address] Krystal Friedman HDL NORMAL > or = 60 mg/dl - LO W CARDIOVASCULAR RISK <40 mg/dl - HIGH CARDIOVASCULAR RISK Normal [facility] Comment on above: Performed By: #### M G, CMP, LIPID, CK #### [facility] [address] [address] [address] Krystal Friedman LDL CALC NORMAL SEE BELOW Normal [facility] Comment on above: Result Comment: <100 mg/dl OPTIMAL 100 - 129 mg/dl NEAR OR ABOVE OPTIMAL 130 - 159 mg/dl BORDERLINE HIGH 160 - 189 mg/dl HIGH >190 mg/dl VERY HIGH Performed By: #### M G, CMP, LIPID, CK #### [facility] [address] [address] [address] Krystal Friedman Triglyceride [Mass/Vol] 104 mg/dL Normal <=150 [facility] Comment on above: Performed By: #### M G, CMP, LIPID, CK #### [facility] [address] [address] [address] Krystal Friedman VLDL CALC 20.8 mg/dL Normal [facility] Comment on above: Performed By: #### M G, CMP, LIPID, CK #### [facility] [address] [address] [address] Krystal Friedman MAGNESIUMon 06-14-2022 Magnesium [Mass/Vol] 1.7 mg/dL Critically low 1.8-2.4 [facility] Comment on above: Performed By: #### M G, CMP, LIPID, CK #### [facility] [address] [address] [address] Krystal Friedman PROF 14(COMP METB)on 022 Albumin [Mass/Vol] 3.6 g/dL Normal 3.4-5.0 [facility] Comment on above: Performed By: #### M G, CMP, LIPID, CK #### [facility] [address] [address] [address] Krystal Friedman Albumin/Globulin [Mass ratio] 1.2 {ratio} Normal [facility] Comment on above: Performed By: #### M G, CMP, LIPID, CK #### [facility] [address] [address] [address] Krystal Friedman ALP [Catalytic activity/Vol] 42 U/L Critically low 46-116 [facility] Comment on above: Performed By: #### M G, CMP, LIPID, CK #### [facility] [address] [address] [address] Krystal Friedman ALT [Catalytic activity/Vol] 46 U/L Normal 16-63 [facility] Comment on above: Performed By: #### M G, CMP, LIPID, CK #### [facility] [address] [address] [address] Krystal Friedman Anion gap [Moles/Vol] 8.2 mmol/L Normal [facility] Comment on above: Performed By: #### M G, CMP, LIPID, CK #### [facility] [address] [address] [address] Krystal Friedman AST [Catalytic activity/Vol] 28 U/L Normal 15-37 [facility] Comment on above: Performed By: #### M G, CMP, LIPID, CK #### [facility] [address] [address] [address] Krystal Friedman Bilirubin [Mass/Vol] 0.5 mg/dL Normal 0.2-1.0 [facility] Comment on above: Performed By: #### M G, CMP, LIPID, CK #### [facility] [address] [address] [address] Krystal Friedman Calcium [Mass/Vol] 8.6 mg/dL Normal 8.5-10.1 [facility] Comment on above: Performed By: #### M G, CMP, LIPID, CK #### [facility] [address] [address] [address] Krystal Friedman Chloride [Moles/Vol] 107 mmol/L Normal 98-107 [facility] Comment on above: Performed By: #### M G, CMP, LIPID, CK #### [facility] [address] [place] [address] Dr. Krystal Friedman CO2 [Moles/Vol] 30.0 mmol/L Normal 21.0-32.0 [facility] Comment on above: Performed By: #### M G, CMP, LIPID, CK #### [facility] [address] [address] [address] Krystal Friedman Creatinine [Mass/Vol] 1.19 mg/dL Normal 0.70-1.30 [facility] Comment on above: Performed By: #### M G, CMP, LIPID, CK #### [facility] [address] [address] [address] Krystal Friedman EGFR-AF GAMBIAN >60 Normal >=60 [facility] Comment on above: Performed By: #### M G, CMP, LIPID, CK #### [facility] [address] [address] [address] Krystal Friedman EGFR-NON AF GAMBIAN >60 Normal >=60 [facility] Comment on above: Performed By: #### M G, CMP, LIPID, CK #### [facility] [address] [address] [address] Krystal Friedman Globulin (S) [Mass/Vol] 3.1 g/dL Normal [facility] Comment on above: Performed By: #### M G, CMP, LIPID, CK #### [facility] [address] [address] [address] Krystal Friedman Glucose [Mass/Vol] 101 mg/dL Normal 74-106 [facility] Comment on above: Performed By: #### M G, CMP, LIPID, CK #### [facility] [address] [address] [address] Krystal Friedman Potassium [Moles/Vol] 4.2 mmol/L Normal 3.5-5.1 [facility] Comment on above: Performed By: #### M G, CMP, LIPID, CK #### [facility] [address] [address] [address] Krystal Friedman Protein [Mass/Vol] 6.7 g/dL Normal 6.4-8.2 [facility] Comment on above: Performed By: #### M G, CMP, LIPID, CK #### [facility] [address] [address] [address] Krystal Friedman Sodium [Moles/Vol] 141 mmol/L Normal 136-145 [facility] Comment on above: Performed By: #### M G, CMP, LIPID, CK #### [facility] [address] [address] [address] Krystal Friedman Urea nitrogen [Mass/Vol] 21.0 mg/dL Critically high 7.0-18.0 [facility] Comment on above: Performed By: #### M G, CMP, LIPID, CK #### [facility] [address] [place] [address] Dr. Krystal Friedman Urea nitrogen/Creatinin e [Mass ratio] 17.6 mg/mg Normal [facility] Comment on above: Performed By: #### M G, CMP, LIPID, CK #### [facility] [address] [address] [address] Krystal Friedman UA RANDOM W/MICROSCOPICon BACTERIA NONE SEEN Normal NONE SEEN [facility] Comment on above: Performed By: #### C BC #### [facility] [address] [place] [address] Dr. Krystal Friedman Bilirubin Ql (U) Negative Normal NEGATIVE [facility] Comment on above: Performed By: #### C BC #### [facility] [address] [place] [address] Dr. Krystal Friedman CAST NONE SEEN Normal NONE SEEN [facility] Comment on above: Performed By: #### C BC #### [facility] [address] [place] [address] Dr. Krystal Friemdan Clarity (U) SL CLOUDY Abnormal CLEAR [facility] Comment on above: Performed By: #### C BC #### [facility] [address] [place] [address] Dr. Krystal Friedman Color (U) YELLOW Normal YELLOW [facility] Comment on above: Performed By: #### C BC #### [facility] [address] [place] [address] Dr. Krystal Friedman Crystals LM Nom (Urine sed) NONE SEEN Normal NONE SEEN [facility] Comment on above: Performed By: #### C BC #### [facility] [address] [place] [address] Dr. Krystal Friedman Epithelial cells LM Ql (Urine sed) RARE Normal NONE SEEN /RARE [facility] Comment on above: Performed By: #### C BC #### [facility] [address] [address] [address] Krystal Friedman Glucose Ql (U) Negative Normal NEGATIVE [facility] Comment on above: Performed By: #### C BC #### [facility] [address] [place] [address] Dr. Krystal Firedman Hemoglobin Ql (U) Negative Normal NEGATIVE [facility] Comment on above: Performed By: #### C BC #### [facility] [address] [place] [address] Dr. Krsytal Friedman Ketones Ql (U) Negative Normal NEGATIVE [facility] Comment on above: Performed By: #### C BC #### [facility] [address] [place] [address] Dr. Krystal Friedman LEUKOCYTES Negative Normal NEGATIVE [facility] Comment on above: Performed By: #### C BC #### [facility] [address] [place] [address] Dr. Krystal Friedman MUCOUS NONE SEEN Normal NONE SEEN [facility] Comment on above: Performed By: #### C BC #### [facility] [address] [place] [address] Dr. Krystal Friedman Nitrite Ql (U) Negative Normal NEGATIVE [facility] Comment on above: Performed By: #### C BC #### [facility] [address] [place] [address] Dr. Krystal Friedman pH (U) 5.5 [pH] Normal 5-9 [facility] Comment on above: Performed By: #### C BC #### [facility] [address] [place] [address] Dr. Krystal Friedman RBC 0-2 Normal 0-2 [facility] Comment on above: Performed By: #### C BC #### [facility] [address] [place] [address] Dr. Krystal Friedman SPEC GRAVITY >=1.030 Abnormal 1.005-<=1.02 5 [facility] Comment on above: Performed By: #### C BC #### [facility] [address] [address] [address] Krystal Friedman UA PROTEIN Negative Normal NEGATIVE/ TRACE [facility] Comment on above: Performed By: #### C BC #### [facility] [address] [address] [address] Krystal Friedman Urobilinogen Qn (U) 0.2 {Jose'U}/dL Normal 0.2 - 1.0 [facility] Comment on above: Performed By: #### C BC #### [facility] [address] [address] [address] Krystal Friedman WBC NONE SEEN Normal NONE SEEN [facility] Comment on above: Performed By: #### C BC #### [facility] [address] [address] [address] Krystal Friedman SARS-CoV-2 (COVID-19) RNA NA A+probe Ql (Resp)on 05-13-2022 SARS-CoV-2 (COVID-19) RNA LUISITO+probe Ql (Unsp spec) Positive [employer] Other XR FINGER MIN 2 VIEWSon 12-16 [...] EDDIE MARTINEZ Date: 2022-01-05 03:41 Normal [facility] Covid-19 PCR (CVDTBH)on SARS-CoV-2 (COVID-19) RNA LUISITO+probe Ql (Unsp spec) Detected Critically abnormal NOT DETECTED [facility] Comment on above: Result Comment: This test is not yet approved or cleared by the [place] FDA. When there are no FDA-approved or cleared tests available, and other criteria are met, FDA can make tests available under an emergency access mechanism called an Emergency Use Authorization (EUA). The EUA for this test is supported by the [place] of Health and Human Service's (HHS's) declaration [...] used). Performed By: #### C BC #### [facility] [address] [place] [address] Dr. Krystal Friedman COVID Quick Testingon 2020 Result Negative [employer] [facility] Other Quick Fluon 09-14-2021 FLUAV Ab CF (S) [Titer] Negative [employer] [facility] Other FLUBV Ab CF (S) [Titer] Negative [employer] Other Vital Signs Date Time Vital Sign Value Performing Clinician Facility 10-01-2024 09:33-0500 Body mass index (BMI) [Ratio] 40.87 kg/m2 [employer] Work Phone: [facility] 10-01-2024 09:33-0500 Body weight 132.9 kg [employer] Work Phone: [facility] 10-01-2024 09:33-0500 Diastolic blood pressure 112 mm[Hg] [employer] Work Phone: [facility] 10-01-2024 09:33-0500 Heart rate 69 /min [employer] Work Phone: [facility] 10-01-2024 09:33-0500 SaO2% (BldA) [Mass fraction] 97 % [employer] Work Phone: [facility] 10-01-2024 09:33-0500 Systolic blood pressure 182 mm[Hg] [employer] Work Phone: [facility] 07-09-2024 09:36-0400 Body height 180.3 cm Cheyenne Aichholz [employer] Work Phone: [facility] 07-09-2024 09:36-0400 Body mass index (BMI) [Ratio] 39.81 kg/m2 Cheyennealysa Mendezholz [employer]EARCH KENNEL SUPERVISOR Work Phone: [facility] 07-09-2024 09:36-0400 Body temperature 98.1 [degF] Cheyenne Vanessaholz [employer]EARCH K[employer]EL SUPERVISOR Work Phone: [facility] 07-09-2024 09:36-0400 Body weight 129.46 kg Cheyennealysa Mendezholz [employer] SUPERVISOR Work Phone: [facility] 07-09-2024 09:36-0400 Diastolic blood pressure 90 mm[Hg] Cheyenne Donnaz [employer] SUPERVISOR Work Phone: [facility] 07-09-2024 09:36-0400 Heart rate 53 /min Cheyenne Vanessaholz [employer] SUPERVISOR Work Phone: [facility] 07-09-2024 09:36-0400 Respiratory rate 19 /min Cheyenne Donnaz [employer] SUPERVISOR Work Phone: [facility] 07-09-2024 09:36-0400 SaO2% (BldA) [Mass fraction] 98 % Cheyennealysa Mendezholz [employer] SUPERVISOR Work Phone: [facility] 07-09-2024 09:36-0400 Systolic blood pressure 130 mm[Hg] Cheyennealysa Mendezholz [employer]EARCH K[employer] SUPERVISOR Work Phone: [facility] 08-17-2022 14:35-0500 Body height 180.34 cm Kari Pillai Other [employer] Other 08-17-2022 14:35-0500 Body mass index (BMI) [Ratio] 39.05 kg/m2 Kari Pillai Other [employer] Other 08-17-2022 14:35-0500 Body temperature 97.8 [degF] Kari Pillai Other [employer] Other 08-17-2022 14:35-0500 Body weight 127.01 kg Kari Pillai Other [employer] Other 08-17-2022 14:35-0500 SaO2% (BldA) [Mass fraction] 97 % Kari Pillai Other [employer] Other 05-13-2022 13:10-0400 Body height 180.34 cm Coty Valera Other [employer] Other 05-13-2022 13:10-0400 Body temperature 101.2 [degF] Coty Soto Other [employer] Other 05-13-2022 13:10-0400 SaO2% (BldA) [Mass fraction] 96 % Coty Marieault Other [employer] Other 09-14-2021 11:15-0500 Body height 180.34 cm Kari Ginty Other [employer] Other 09-14-2021 11:15-0500 Body mass index (BMI) [Ratio] 39.05 kg/m2 Kari Ginty Other [employer] [facility] Other 09-14-2021 11:15-0500 Body temperature 98.6 [degF] Kari Ginty Other [employer] Other 09-14-2021 11:15-0500 Body weight 127.01 kg Kari Ginty Other [employer] Other 09-14-2021 11:15-0500 Respiratory rate 18 /min Kari Ginty Other [employer] Other 09-14-2021 11:15-0500 SaO2% (BldA) [Mass fraction] 93 % Kari Hernandez Other [employer] Other Encounters Encounter Date Encounter Type Care Provider Facility Start: 11-11-2024 ambulatory Christi Jose GuadalupeRosetta Azartamika Facility:[facility] Start: 10-01-2024 End: 10-01-2024 Bamboo flowsheet Christopher Rosalia DO Work Phone: [facility] Start: 10-01-2024 End: 10-01-2024 Bamboo flowsheet Christopher Rosalia DO Work Phone: [facility] Start: 10-01-2024 End: 10-01-2024 Office outpatient new 45 minutes Christopher Rosalia DO Work Phone: [facility] Comment on above: Ataxia (Primary Dx); Essential hypertension (CMS/HCC) Start: 08-24-2024 End: 08-24-2024 Orders Only Cheyenne Youngblood [employer] SUPERVISOR Work Phone: [facility] Comment on above: Dizziness (Primary D x) Start: 07-09-2024 End: 07-09-2024 Bamboo flowsheet Cheyenne Youngblood [employer] SUPERVISOR Work Phone: [facility] Start: 07-09-2024 End: 07-09-2024 Bamboo flowsheet Cheyenne Youngblood [employer] K[employer] SUPERVISOR Work Phone: [facility] Start: 07-09-2024 End: 07-09-2024 Office outpatient visit 25 minutes Cheyenne Youngblood [employer] SUPER[employer] Work Phone: [facility] Comment on above: Essential (primary) hypertension (CMS/HCC) (Primary Dx); Morbid (severe) obesity due to excess calories (CMS/HCC); Body mass index (BMI) 39.0-39.9, adult; Needs flu shot; Pre-diabetes; Primary hypertension (CMS/HCC); Mixed hyperlipidemia ([facility]/HCC); Environmental and seasonal allergies; Other chronic pain; Chronic tension-type headache, not intractable; Gastroesophageal reflux disease without esophagitis; Dizziness; DDD (degenerative disc disease), cervical Start: 07-09-2024 End: 07-09-2024 ambulatory CHEYENNE AICHHOLZ Not Available Start: 06-17-2024 End: 06-17-2024 ambulatory Christi Bright Facility:[facility] Start: 06-17-2024 End: 06-17-2024 Patient encounter procedure Christi Bright [facility] Start: 06-03-2024 End: 06-03-2024 Refill Cheyenne Ford [employer] SUPER[employer]OR Work Phone: [facility] Comment on above: Environmental and se asonal allergies; Magnesium deficiency Start: 01-08-2024 End: 01-08-2024 ambulatory CHEYENNE AICHHOLZ Not Available Start: 12-25-2023 End: 12-25-2023 ambulatory ANNMARIE MALONE Not Available Start: 09-18-2023 End: 09-18-2023 ambulatory ADEBAYO ROBLES Not Available Start: 09-12-2022 End: 09-13-2022 ambulatory BENEFIT SPECIALIST CHEYENNE AICHHOLZ Facility: Start: 08-17-2022 End: 08-17-2022 ambulatory Kari Pillai Other [employer] Other Start: 08-17-2022 Office outpatient vi sit 15 minutes Kari Pillai [facility] Start: 07-13-2022 End: 07-13-2022 ambulatory BENEFIT SPECIALIST CHEYENNE AICHHOLZ Facility:[facility] Start: 06-14-2022 End: 06-15-2022 ambulatory BENEFIT SPECIALIST CHEYENNE AICHHOLZ Facility:[facility] Start: 05-13-2022 End: 05-13-2022 ambulatory Coty Valera Other [employer] Other Start: 05-13-2022 Office outpatient vi sit 15 minutes Coty Valera [facility] Start: 01-05-2022 End: 01-05-2022 ambulatory BENEFIT SPECIALIST CHEYENNE ALIRIONabeelAIDA Facility:[facility] Start: 09-18-2021 End: 09-18-2021 ambulatory BENEFIT SPECIALIST CHEYENNE YOUNGBLOOD Facility:[facility] Start: 09-14-2021 End: 09-14-2021 ambulatory Kari Ginty Other [facility] Other Start: 09-14-2021 Office outpatient vi sit 15 minutes Kari Ginty [facility] Procedures Date Procedure Procedure Detail Performing Clinician Start: 06-14-2022 PSA screening B[employer]EFIT SPECIALIST CHEYENNE ALIRIONabeelAIDA Comment on above: Performed By: #### C BC #### [facility] [address] [place] [address] Dr. Krystal Friedman Start: 04-13-2020 Ultrasonography guid ed transrectal cryoablation of prostate Christi Lue Start: 09-16-2017 Arthroscopy of knee Zari hy Lue Comment on above: left Start: 09-16-2015 Colonoscopy Cheyenne Crowder js [employer] SUPER[employer]OR Work Phone: Start: 09-16-2015 Colonoscopy Christi Lue Comment on above: Dr. Payne Start: 09-16-1993 H/O: vasectomy Christi Nissa e Plan of Treatment Date Care Activity Detail Author Start: 09-16-2025 Screening for malign ant neoplasm of colon [facility] Start: 03-15-2025 Influenza vaccination Influenza Vacc ine (#1) [facility] Comment on above: Postponed from 05/17 (Patient Refused) Start: 10-06-2024 End: 10-06-2024 Patient encounter procedure 10/06/2024 9:00 AM EST Office Visit [facility] [address] [place] [address] Cheyenne Youngblood NP [address] [place] [id number] [facility] Start: 10-01-2024 End: 10-01-2025 MR Brain WO and W contrast IV MR brain w and wo contrast routine Imaging High Priority Ataxia Expected: 10/01/2024, Expires: 10/01/2025 [facility] Comment on above: Expected: 10/01/2024 , Expires: 10/01/2025 Start: 10-01-2024 End: 10-01-2025 Vestibular test (VNG) Vestibular test (VNG) Neurology Routine Ataxia Expected: 10/01/2024 (Approximate), Expires: 10/01/2025 [facility] Work Phone: Comment on above: Expected: 10/01/2024 (Approximate), Expires: 10/01/2025 Start: 07-09-2024 End: 07-09-2025 CBC W Auto Differential panel - Blood CBC and differential Lab Routine Dizziness Expected: 07/09/2024 (Approximate), Expires: 07/09/2025 [facility] Comment on above: Expected: 07/09/2024 (Approximate), Expires: 07/09/2025 Start: 07-09-2024 End: 07-09-2025 Comprehensive metabolic 2000 panel - Serum or Plasma Comprehensive metabolic panel Lab Routine Dizziness Expected: 07/09/2024 (Approximate), Expires: 07/09/2025 [facility] Comment on above: Expected: 07/09/2024 (Approximate), Expires: 07/09/2025 Start: 07-09-2024 End: 07-09-2025 Hemoglobin A1c/Hemoglobin.total in Blood Hemoglobin A1c Lab Routine Pre-diabetes Expected: 07/09/2024 (Approximate), Expires: 07/09/2025 [facility] Work Phone: Comment on above: Expected: 07/09/2024 (Approximate), Expires: 07/09/2025 Start: 07-09-2024 End: 07-09-2025 XR Cervical spine 2 or 3 Views XR cervical spine 2 or 3 views Imaging Routine Dizziness DDD (degenerative disc disease), cervical Expected: 07/09/2024 (Approximate), Expires: 07/09/2025 [facility] Comment on above: Expected: 07/09/2024 (Approximate), Expires: 07/09/2025 Start: 07-09-2024 End: 07-09-2024 Patient encounter procedure [facility] Comment on above: Morbid (severe) obes ity due to excess calories (CMS/HCC); Essential (primary) hypertension (CMS/HCC); Body mass index (BMI) 39.0-39.9, adult Start: 05-17-2024 Influenza vaccination Influenza Vacc ine (#1) [facility] Start: 1965 Screening for malign ant neoplasm of colon [facility] Immunizations Immunization Date Immunization Notes Care Provider Fa cility 01-05-2022 diphtheria, tetanus toxoids and pertussis vaccine Cheyenne Youngblood NP Work Phone: [facility] NEGATED: Highlighted row has not occurred!08-08-2022 SARS-CoV-2 mRNA (tozinameran 5y-11y) vaccine Christi Bright [facility] Payers Date Payer Category Payer Private Health Insurance [id number] 1965 Unknown [id number] 2.16.84 [id number] 1965 Unknown [id number] 2.16.84 [id number] 1964 Unknown [id number] 2.16.84 [id number] 1964 Unknown [id number] 2.16.84 [id number] 1964 Unknown [id number] 2.16.84 [id number] 1964 Unknown [id number] 2.16.8 [id number] 1964 Unknown [id number] 2.16.8 [id number] 1964 Unknown [id number] 2.16.84 [id number] 1964 Unknown [id number] 2.16.84 [id number] 1964 Unknown [id number] 2.16.84 [id number] 1964 Unknown [id number] 2.16.840 .[id number] 1964 Unknown [id number] 1960 Private Health Insurance [id number] 1959 Unknown [id number] Social History Date Type Detail Facility Unknown if ever smoked [facility] [facility] Other Start: 01-08-2024 End: 10-01-2024 Sex Assigned At [facility] Start: 06-12-2023 End: 01-08-2024 Tobacco smoking status Never smoked tobacco (finding) [facility] Tobacco smoking status Never [facility] Start: 01-08-2024 Tobacco use and exposure Smokeless tobacco non-user [facility] Start: 01-08-2024 End: 10-01-2024 Alcoholic beverage intake Ex-drinker (finding) [facility] Start: 01-08-2024 End: 10-01-2024 History of Social function [facility] Start: 01-08-2024 Alcohol Comment Coffine: mouta in dew 3 can daily [facility] Start: 1965 Sex assigned at Not on file [facility] Clinical Notes 09-14-2021 to 10-01-2024 Denton Lindsey, - 10/01/2024 9:30 AM Wisam Youngblood NP - 08/24/2024 5:53 PM Wisam Youngblood NP - 07/09/2024 10:06 AM EDAurora Aliriobasilio, [employer] SUPER[employer] - 07/09/2024 10:04 AM EDT Note Date & Type Note Facility 10-01-2024 History of Presen t illness Narrative Images from the original note were not included. Dizziness Subjective Brittany Paul, 59 y.o., male Patient presents today for a neurologic consult at the request of Cheyenne Youngblood CNP for dizziness. Patient states he has been experiencing dizziness since July. He states this was mainly happening when going to sleep when sleeping on his right side. He was also experiencing intermittent dizziness in [place] when he was laying on either side or at time when standing. In the last week he has not experienced these symptoms any longer. Patient denies any blurred vision, headaches. He admits to some imbalance when the dizziness was occurring but not currently. He denies any falls. Review of Systems Constitutional: Negative for appetite change, fatigue and fever. Respiratory: Negative for cough, shortness of breath and wheezing. Cardiovascular: Negative for chest pain, palpitations and leg swelling. Gastrointestinal: Negative for abdominal pain, constipation, diarrhea and nausea. Musculoskeletal: Negative for arthralgias, gait problem and myalgias. Neurological: Positive for dizziness and numbness. Negative for tremors and headaches. Past Medical History: Diagnosis Date Arthritis of left subtalar joint Back problem Bilateral hand pain Carpal tunnel syndrome, bilateral Chondromalacia, patella, left Chronic left shoulder pain Chronic pain Chronic tension-type headache, not intractable DDD (degenerative disc disease), cervical DDD (degenerative disc disease), lumbar Elevated PSA Environmental and seasonal allergies 09/12/2023 Gastroesophageal reflux Hearing loss Hyperlipemia (CMS/HCC) Hypertension (CMS/HCC) 11/07/2023 Hypomagnesemia Internal hemorrhoid Left foot pain Mixed hyperlipidemia (CMS/HCC) 09/12/2023 Muscle cramp Neck pain Otalgia, bilateral Other chronic pain 09/12/2023 Paresthesia of both hands Sciatica Shoulder pain Sinus tarsitis, left Tension headache, chronic 09/12/2023 Tinnitus Vitamin B 12 deficiency Vitamin D deficiency Past Surgical History: Procedure Laterality Date CARPAL TUNNEL RELEASE Left 07/14/2021 Dr Gentile CARPAL TUNNEL RELEASE Right 08/30/2021 Dr Rizvi KNEE SURGERY Left 09/03/2017 Scope - Dr Gentile MULTIPLE TOOTH EXTRACTIONS VASECTOMY 1994 No family history on file. Social History Tobacco Use Smoking status: Never Smokeless tobacco: Never Substance Use Topics Alcohol use: Not Currently Comment: Ludivina: scott wallsera 3 can daily Allergies: Patient has no known allergies. Vitals: 10/01/24 0933 BP: (!) 182/112 Pulse: 69 SpO2: 97% Body mass index is 40.87 kg/m . weight: 293 lb Neurologic exam: Mental status: Awake, alert to person, place and time. Recent and remote memory are intact. Language is fluent without aphasia. Attention and concentration are normal. Fund of knowledge is appropriate for level of education. Cranial nerves: CN II: Visual acuity is normal. Visual gallardo full to confrontation. CN III, IV, : pupils equal round and reactive to light. Extraocular movements intact. No ptosis present. CN V: Facial sensation is normal. CN VII: Full and symmetric facial movement. CN VIII: Hearing is normal to finger rub bilaterally: CN IX and X: Palate elevates symmetrically. CN XI: Shoulder shrug is normal bilaterally. CN XII: Tongue is midline without atrophy or fasciculation. Motor: RUE Strength deltoid, , biceps , triceps , wrist extensors , wrist flexor , hot saw helper strength 5/5. LUE Strength deltoid , biceps , triceps , wrist extensors , wrist flexor , hot saw helper strength 5/5. RLE Strength illopsoas, quadriceps, tibialis anterior, and gastrocnemius strength 5/5. LLE Strength illopsoas, quadriceps, tibialis anterior, and gastrocnemius strength 5/5. Normal tone x4 extremities. Bulk is normal. Sensory: Sensation is intact to light touch throughout Four extremities. Reflexes: RUE biceps reflex 2+ brachioradialis reflex 2+ . LUE biceps reflex 2+ brachioradialis reflex 2+ . RLE knee reflex 1+ . LLE knee reflex 1+ . Toro's sign negative. Coordination: [id number]-ve-fvlk testing and rapid alternating movements are normal Gait: Abnormal bilaterally. Review and summary of old records: X-ray of the cervical spine on 07/13/2024: Moderate degenerative changes. No appreciable acute abnormality. MRI of the lumbar spine without contrast on 10/03/2021: Severe spinal stenosis at L4/5 with more mild stenosis at L2/3 and L3/4 Assessment/Plan Diagnoses and all orders for this visit: Ataxia The patient has subjective complaints of dizziness and objective exam findings of ataxia. Given his risk factors of hypertension and hyperlipidemia and his obesity certainly these are concerning for a constellation of signs and symptoms such as stroke. Also this could be blood pressure related as detailed below. However this probably would not account for the focal exam findings. Plan: Continue aspirin 81 mg p.o. daily for secondary stroke prevention Close follow up with primary care to ensure care for management of blood sugar, blood pressure and cholesterol. Goal of LDL less than 70 would be ideal. We will obtain an MRI of the brain without contrast to assess for any intracranial pathology that could account for the patient's symptoms such as stroke. These symptoms may be ongoing for many months and as such the patient is certainly not a TNK or interventional candidate. Pending the results we may consider further stroke workup with a vessel imaging or echocardiogram. Essential hypertension (CMS/HCC) The patient has a substantially elevated blood pressure today of 182/112. The patient states he took his medication about 15 minutes prior to the visit. I am concerned that the substantial elevation in blood pressure and potential fluctuations thereof could be responsible to certain degree for the patient's dizziness. I have asked the patient to contact primary care today in order to consider an adjustment in medication. Plan: Close follow up with primary care We did go over signs and symptoms of stroke in detail and did discuss the life-threatening nature of this and hypertensive emergency. The patient was advised to proceed to the emergency department right away with any signs or symptoms. Pt has been fully educated on their diagnosis, treatment options, follow up plan, and return instructions documented in this encounter [facility] 08-24-2024 History of Presen t illness Narrative Associated Problem(s): Dizziness Suspect this is more from cervical etiology Check some labs No red flags Differentials: DDD, BPPV If labs normal, and xray normal will send to neuro If cervical looks to be problem will go to [facility] documented in this encounter [facility] 07-09-2024 History of Presen t illness Narrative Associated Problem(s): Dizziness Suspect this is more from cervical etiology Check some labs No red flags Differentials: DDD, BPPV If labs normal, and xray normal will send to neuro If cervical looks to be problem will go to Pain [facility] Associated Problem(s): Gastroesophageal reflux disease without esophagitis Doing well with current meds Associated Problem(s): Primary hypertension (CMS/HCC) At goal, cont current meds Associated Problem(s): Tension headache, chronic Controlled with tizanidine Associated Problem(s): Pre-diabetes Stopped metformin about 6 months ago Will check a1c Associated Problem(s): Needs flu shot refused Pt noticed a couple months ago when he is sleeping and goes to move he notices some dizziness on his right side Images from the original note were not included. Brittany Paul is a 59 y.o. male presents with chief complaint of No chief complaint on file. HPI: Dizziness: spinning/uneven feeling, noted when lying on right side. No NT in UE/LE. No neck pain, can last for a bit after sitting up, but then resolves. Hx of cervical DDD Hypertension This is a chronic problem. The current episode started more than 1 year ago. The problem is unchanged. The problem is controlled. Associated symptoms include headaches and neck pain. Pertinent negatives include no blurred vision, chest pain, peripheral edema or shortness of breath. There are no associated agents to hypertension. Risk factors for coronary artery disease include obesity, dyslipidemia and male gender. Past treatments include beta blockers and angiotensin blockers. The current treatment provides significant improvement. There are no compliance problems. There is no history of CAD/PA or PVD. GERD He reports no abdominal pain, no chest pain, no coughing, no dysphagia, no globus sensation, no heartburn, no nausea, no sore throat or no wheezing. This is a chronic problem. The current episode started more than 1 year ago. The problem occurs occasionally. The problem has been unchanged. He has tried a histamine-2 antagonist for the symptoms. SUBJECTIVE: MEDICATIONS: Current Outpatient Medications Medication Instructions atenolol (TENORMIN) 25 mg, Oral, Daily atorvastatin (LIPITOR) 20 mg, Oral, Every evening cholecalciferol (VITAMIN D-3) 1,000 Units, Oral, Daily cyanocobalamin (VITAMIN B-12) 500 mcg, Oral, Daily RT famotidine (PEPCID) 20 mg, Oral, Every 24 hours, 1 (one) time each day at the same time loratadine (Claritin) 10 MG tablet Every 24 hours losartan (COZAAR) 50 mg, Oral, 2 times daily magnesium oxide (MAGNESIUM-OXIDE) 400 mg, Oral, Daily meloxicam (Mobic) 15 MG tablet TAKE 1/2 TABLET BY MOUTH TWICE A DAY montelukast (SINGULAIR) 10 mg, Oral, Nightly omega-3 (Fish Oil) 1200 MG capsule 1 capsule, Every 24 hours tiZANidine (ZANAFLEX) 4 mg, Oral, Nightly PRN ALLERGIES: No Known Allergies REVIEW OF SYMPTOMS: Review of Systems Constitutional: Negative for activity change, appetite change and unexpected weight change. HENT: Negative for ear pain, nosebleeds, sneezing, sore throat, trouble swallowing and voice change. Eyes: Negative for blurred vision, pain, discharge and visual disturbance. Respiratory: Negative for apnea, cough, chest tightness, shortness of breath and wheezing. Cardiovascular: Negative for chest pain and leg swelling. Gastrointestinal: Negative for abdominal distention, abdominal pain, blood in stool, constipation, diarrhea, dysphagia, heartburn and nausea. Genitourinary: Negative for decreased urine volume, difficulty urinating, dysuria and hematuria. Musculoskeletal: Positive for neck pain. Skin: Negative for color change. Neurological: Positive for dizziness and headaches. Negative for tremors and seizures. Psychiatric/Behavioral: Negative for agitation, decreased concentration, hallucinations, self-injury and suicidal ideas. The patient is not nervous/anxious. Hematological: Negative for adenopathy. Does not bruise/bleed easily. Endocrine: Negative for cold intolerance, heat intolerance, polydipsia and polyuria. Allergic/Immunologic: Negative for environmental allergies and food allergies. PAST MEDICAL HISTORY Past Medical History: Diagnosis Date Arthritis of left subtalar joint Back problem Bilateral hand pain Carpal tunnel syndrome, bilateral Chondromalacia, patella, left Chronic left shoulder pain Chronic pain Chronic tension-type headache, not intractable DDD (degenerative disc disease), cervical DDD (degenerative disc disease), lumbar Elevated PSA Environmental and seasonal allergies 09/12/2023 Gastroesophageal reflux Hearing loss Hyperlipemia (CMS/HCC) Hypertension (CMS/HCC) 11/07/2023 Hypomagnesemia Internal hemorrhoid Left foot pain Mixed hyperlipidemia (CMS/HCC) 09/12/2023 Muscle cramp Neck pain Otalgia, bilateral Other chronic pain 09/12/2023 Paresthesia of both hands Sciatica Shoulder pain Sinus tarsitis, left Tension headache, chronic 09/12/2023 Tinnitus Vitamin B 12 deficiency Vitamin D deficiency Past Surgical History: Procedure Laterality Date CARPAL TUNNEL RELEASE Left 07/14/2021 Dr Gentile CARPAL TUNNEL RELEASE Right 08/30/2021 Dr Rizvi KNEE SURGERY Left 09/03/2017 Scope - Dr Gentile MULTIPLE TOOTH EXTRACTIONS VASECTOMY 1994 family history is not on file. OBJECTIVE: Visit Vitals BP 130/90 (BP Location: Left arm, Patient Position: Sitting, BP Cuff Size: Adult long) Pulse 53 Temp 98.1 F (Temporal) Resp 19 Ht 5' 11 Wt 285 lb 6.4 oz SpO2 98% BMI 39.81 kg/m Smoking Status Never BSA 2.54 m Physical Exam Vitals and nursing note reviewed. Constitutional: Appearance: Normal appearance. He is obese. He is not ill-appearing or diaphoretic. HENT: Head: Normocephalic. Right Ear: Tympanic membrane, ear canal and external ear normal. Left Ear: Tympanic membrane, ear canal and external ear normal. Nose: Nose normal. No congestion or rhinorrhea. Mouth/Throat: Mouth: Mucous membranes are moist. Pharynx: Oropharynx is clear. No oropharyngeal exudate or posterior oropharyngeal erythema. Eyes: Extraocular Movements: Extraocular movements intact. Conjunctiva/sclera: Conjunctivae normal. Pupils: Pupils are equal, round, and reactive to light. Neck: Vascular: No carotid bruit. Cardiovascular: Rate and Rhythm: Normal rate and regular rhythm. Pulses: Normal pulses. Heart sounds: Normal heart sounds. Pulmonary: Effort: Pulmonary effort is normal. No respiratory distress. Breath sounds: Normal breath sounds. No stridor. No wheezing or rhonchi. Abdominal: General: Bowel sounds are normal. Palpations: Abdomen is soft. There is no mass. Tenderness: There is no abdominal tenderness. Musculoskeletal: Cervical back: Normal range of motion and neck supple. Right lower leg: No edema. Left lower leg: No edema. Comments: Cervical spine near full ROM, some dizziness with hyperextension MMT 5/5 bilat LE/UE Lymphadenopathy: Cervical: No cervical adenopathy. Skin: General: Skin is warm and dry. Capillary Refill: Capillary refill takes 2 to 3 seconds. Findings: No bruising or lesion. Neurological: General: No focal deficit present. Mental Status: He is alert. Cranial Nerves: No cranial nerve deficit. Sensory: No sensory deficit. Motor: No weakness. Coordination: Coordination normal. Gait: Gait normal. Deep Tendon Reflexes: Reflexes normal. Comments: Neg romberg and neg ulnar drift Psychiatric: Mood and Affect: Mood normal. Behavior: Behavior normal. Thought Content: Thought content normal. Judgment: Judgment normal. ASSESSMENT AND PLAN: Follow up in about 3 months (around 10/09/2024) for Recheck. Problem List Items Addressed This Visit Mixed hyperlipidemia (CMS/HCC) Relevant Medications atorvastatin (Lipitor) 20 MG tablet Other chronic pain Relevant Medications meloxicam (Mobic) 15 MG tablet Tension headache, chronic Controlled with tizanidine Relevant Medications tiZANidine (Zanaflex) 4 MG tablet Environmental and seasonal allergies Relevant Medications montelukast (Singulair) 10 MG tablet Primary hypertension (CMS/HCC) - Primary At goal, cont current meds Relevant Medications atenolol (Tenormin) 25 MG tablet losartan (Cozaar) 50 MG tablet Pre-diabetes Stopped metformin about 6 months ago Will check a1c Relevant Orders Hemoglobin A1c Gastroesophageal reflux disease without esophagitis Doing well with current meds Relevant Medications famotidine (Pepcid) 20 MG tablet Morbid (severe) obesity due to excess calories (CMS/HCC) Body mass index (BMI) 39.0-39.9, adult Needs flu shot refused Dizziness Suspect this is more from cervical etiology Check some labs No red flags Differentials: DDD, BPPV If labs normal, and xray normal will send to neuro If cervical looks to be problem will go to [facility] Relevant Orders XR cervical spine 2 or 3 views CBC and differential Comprehensive metabolic panel DDD (degenerative disc disease), cervical Relevant Orders XR cervical spine 2 or 3 views documented in this encounter [facility] 08-17-2022 Evaluation note Encounter Date Diagnosis Assessment [...] understanding and is agreeable with treatment plan [facility] Other 08-28-2022 Evaluation note* Encounter Date Diagnosis Assessment Notes Treatment Notes Treatment Clinical Notes Apr, Contact with and (suspected) exposure to other viral communicable diseases (ICD-10 - Z20.828) Apr, COVID-19 (ICD-10 - U07.1) Today you tested positive for the COVID virus. This mean you need to follow all CDC [facility]ine guidelines [email or web address] It is important to rest, increase fluids, [...] weeks for the cough to go away. [facility] Other 12-30-2021 Evaluation note* Encounter Date Diagnosis Assessment Notes Treatment Notes Treatment Clinical Notes Aug, Contact with and (suspected) exposure [...] Patient care instructions given in writting by [facility] Care At Home document [facility] Other Evaluation + Plan note No data available for this section [facility]* Diagnosis Primary hypertension (CMS/[facility], [facility])- Primary Unspecified essential hypertension Elevated PSA Elevated prostate specific antigen (PSA) Pre-diabetes Other abnormal glucose Sensorineural hearing loss (SNHL) of both ears Gastroesophageal reflux disease without esophagitis Esophageal reflux Magnesium deficiency Disorders of magnesium metabolism Other chronic pain Essential (primary) hypertension (CMS/HCC)- Primary Unspecified essential hypertension Morbid (severe) obesity due to excess calories (CMS/HCC) Body mass index (BMI) 39.0-39.9, adult Needs flu shot Need for prophylactic vaccination and inoculation against influenza Pre-diabetes Other abnormal glucose Primary hypertension (CMS/HCC) Unspecified essential hypertension Mixed hyperlipidemia (CMS/HCC) Mixed hyperlipidemia Environmental and seasonal allergies Other chronic pain Chronic tension-type headache, not intractable Chronic tension type headache Gastroesophageal reflux disease without esophagitis Esophageal reflux Dizziness Dizziness and giddiness DDD (degenerative disc disease), cervical Degeneration of cervical intervertebral disc Dizziness- Primary Dizziness and giddiness documented [facility] Diagnosis Environmental and seasonal allergies Magnesium deficiency Disorders of magnesium metabolism [facility] Diagnosis Primary hypertension (CMS/HCC)- Primary Unspecified essential hypertension Elevated PSA Elevated prostate specific antigen (PSA) Pre-diabetes Other abnormal glucose Sensorineural hearing loss (SNHL) of both ears Gastroesophageal reflux disease without esophagitis Esophageal reflux Magnesium deficiency Disorders of magnesium metabolism Other chronic pain Essential (primary) hypertension (CMS/HCC)- Primary Unspecified essential hypertension Morbid (severe) obesity due to excess calories (CMS/HCC) Body mass index (BMI) 39.0-39.9, adult Needs flu shot Need for prophylactic vaccination and inoculation against influenza Pre-diabetes Other abnormal glucose Primary hypertension (CMS/HCC) Unspecified essential hypertension Mixed hyperlipidemia (CMS/HCC) Mixed hyperlipidemia Environmental and seasonal allergies Other chronic pain Chronic tension-type headache, not intractable Chronic tension type headache Gastroesophageal reflux disease without esophagitis Esophageal reflux Dizziness Dizziness and giddiness DDD (degenerative disc disease), cervical Degeneration of cervical intervertebral disc [facility] Diagnosis Primary hypertension (CMS/HCC)- Primary Unspecified essential hypertension Elevated PSA Elevated prostate specific antigen (PSA) Pre-diabetes Other abnormal glucose Sensorineural hearing loss (SNHL) of both ears Gastroesophageal reflux disease without esophagitis Esophageal reflux Magnesium deficiency Disorders of magnesium metabolism Other chronic pain Essential (primary) hypertension (CMS/HCC)- Primary Unspecified essential hypertension Morbid (severe) obesity due to excess calories (CMS/HCC) Body mass index (BMI) 39.0-39.9, adult Needs flu shot Need for prophylactic vaccination and inoculation against influenza Pre-diabetes Other abnormal glucose Primary hypertension (CMS/HCC) Unspecified essential hypertension Mixed hyperlipidemia (CMS/HCC) Mixed hyperlipidemia Environmental and seasonal allergies Other chronic pain Chronic tension-type headache, not intractable Chronic tension type headache Gastroesophageal reflux disease without esophagitis Esophageal reflux Dizziness Dizziness and giddiness DDD (degenerative disc disease), cervical Degeneration of cervical intervertebral disc Dizziness- Primary Dizziness and giddiness Ataxia- Primary Lack of coordination Essential hypertension (CMS/HCC) Unspecified essential hypertension [facility] - Reported* Type Description Date Medical History Tinnitis Medical History Hyperlipidemia 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 Medical History Vit. D def. 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 Medical History Vit. D def. Medical History Lt knee Bakers cyst Medical History HTN Medical History ARTHRITIS Surgical History Vasectomy 1993 Surgical History Lt knee arthroscope per Dr.Step malcolm 09/03/17 Surgical History biopsy on prostate Surgical History b/l carpal tunnel release Hospitalization History see above [facility] Other Hospital Discharge instructions No data available for this section [facility] progress note No data available for this section [facility] reason for visit Narrative* Consultation (Routine) - Closed Specialty Diagnoses / Procedures Referred By Contac t Referred To Contact Neurology Diagnoses Dizziness Procedures CT OFFICE/OUTPATIENT [facility] Cheyenne Youngblood NP [address] [place] [address] Phone: tel: fax: Iván Ocampo MD [address] [place] [address] Phone: tel: fax: Referral ID Status Reason Start Date Expiration Date V isits Requested Visits Authorized [id number] Closed Consult and Treat 08/24/2024 02/20/2025 1 1 [facility] Healthcare Summary Purpose Family History No Family History Records Found No data available for this section No Family History Records FoundNo Family History Records Found Advance Directives No Advanced Directives Records FoundNo Advanced Directives Records FoundNo Advanced Directives Records Found Additional Source Comments REASON FOR VISIT (unrecogniz ed section and content) Reason Comments Med Refill (unrecognized sect ion and content) No Status Records FoundNo Status Records FoundNo Status Records Found INFORMATION SOURCE (unrecogn ized section and content) DATE CREATED AUTHOR 09/15/2022 [facility] DATE CREATED AUTHOR AUTHOR'S ORGANIZ ATION 07/10/2024 [place] [facility] DATE CREATED AUTHOR AUTHOR'S ORGANIZ ATION 07/10/2024 [facility] EPIC Patient Care team informatio n (unrecognized section and content) Case Filler Relationship Specialty Start Date End Date Unallocated, Rome Vines MD [address] [place] [address] PCP - General Family Medicine 07/08/24 Cheyenne Youngblood NP [address] [place] [phone] Nurse Practitioner Family Medicine 07/08/24 Case Filler Relationship Specialty Start Date End Date Tate Green MD [address] [place] [phone] PCP - General Family Medicine 07/16/24 Cheyenne Youngblood NP [address] [place] [phone] Nurse Practitioner Family Medicine 07/08/24 Case Filler Relationship Specialty Start Date End Date Tate Green MD [address] [place] [phone] PCP - General Family Medicine 12/24/23 Case Filler Relationship Specialty Start Date End Date Unallocated, Rome Vines MD [address] [place] [address] PCP - General Family Medicine 07/08/24 Cheyenne Youngblood NP [address] [place] [phone] Nurse Practitioner Family Medicine 07/08/24 Case Filler Relationship Specialty Start Date End Date Tate Green MD [address] [place] [phone] PCP - General Family Medicine 07/16/24 Cheyenne Youngblood NP [address] [place] [phone] Nurse Practitioner Family Medicine 07/08/24 Case Filler Relationship Specialty Start Date End Date Tate Green MD [address] [place] [phone] PCP - General Family Medicine 07/16/24 Cheyenne Youngblood NP [address] [place] [phone] Nurse Practitioner Family Medicine 07/08/24 FOR RECORDS PERTAINING TO PATIENTS WHO ARE [...] BE BASED ON THE PRIMARY CLINICAL RECORDS. [facility]. provides no warranty or guarantee of the accuracy or completeness of information in this document.
[2024-10-01 12:38] LABS: Estimated GFR (African America >60 (>=60 mL/min/1.73m^2); Estimated GFR (Non-African Ame 56 (>=60 mL/min/1.73m^2)
== END 2024-10-01 11:37 | disposition home or self-care (01) ==
LOC: LAB 11:37
PROVIDERS: PCP Nurse Practitioner; Visit Provider Nurse Practitioner
DX: R79.89 Other specified abnormal findings of blood chemistry (principal)
CPT/HCPCS: 36415; 82565; 84520

== ENCOUNTER 2024-11-11 07:01 | Emergency (ER) | payer OTHER, SELFPAY ==
[2024-11-11 07:08] VITALS: BP 171/95; PULSE 100; TEMP 36.5; O2SAT 99; BMI 40.4
--- OUTSIDE RECORDS SUMMARY | 2024-11-11 07:17 | XMS_ITS | CCD ---
Author Organization [facility] CliniSy[facility] Care Team Providers Care Water Main Inspector Name Role Phone Didisandrakang Kari Unavailable Coty Valera Unavailable AICHHOLZ, SEISMIC SURVEY ASSISTANT [place] Primary Care Unavailable PAY, DR MUIR Admitting Unavailable PAY, DR MUIR Attending Unavailable SALBADOR, DR DILMA Levi Consulting Unavailable PAY, DR MUIR Consulting Unavailable AICHHOLZ, SEISMIC SURVEY ASSISTANT [place] Primary Care Unavailable DEMARCUS, DR ELÍAS Martinez Consulting Unavailable DEMARCUS, DR ELÍAS Martinez Admitting Unavailable DEMARCUS, DR ELÍAS Martinez Attending Unavailable EDDIE MARTINEZ Consulting Unavailable AICHHOLZ, SEISMIC SURVEY ASSISTANT [place] Admitting Unavailable AICHHOLZ, SEISMIC SURVEY ASSISTANT [place] Attending Unavailable AICHHOLZ, SEISMIC SURVEY ASSISTANT [place] Primary Care Unavailable AICHHOLZ, SEISMIC SURVEY ASSISTANT [place] Consulting Unavailable AICHHOLZ, SEISMIC SURVEY ASSISTANT [place] Admitting Unavailable AICHHOLZ, SEISMIC SURVEY ASSISTANT [place] Attending Unavailable AICHHOLZ, SEISMIC SURVEY ASSISTANT [place] Primary Care Unavailable AICHHOLZ, SEISMIC SURVEY ASSISTANT [place] Consulting Unavailable AICHHOLZ, SEISMIC SURVEY ASSISTANT [place] Admitting Unavailable AICHHOLZ, SEISMIC SURVEY ASSISTANT [place] Attending Unavailable AICHHOLZ, SEISMIC SURVEY ASSISTANT [place] Primary Care Unavailable AICHHOLZ, SEISMIC SURVEY ASSISTANT [place] Consulting Unavailable Kari Pillai Unavailable CHEYENNE YOUNGBLOOD Primary Care Physician Unallocated , [place] Provider Primary Care 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, [place] Unavailable Tate Green MD Primary Care Provider [phone] Tate Green MD Primary Care Provider [phone] Maria Lindsey DO Attending Provider NON STAFF Primary Care Provider Unavailabl e FORD [place] Attending Unavailable ANNMARIE MALONE Attending Unavailable CHEYENNE YOUNGBLOOD Attending Unavailable CHEYENNE YOUNGBLOOD Attending Unavailable MARIA LINDSEY Attending Unavailable CHEYENNE YOUNGBLOOD Referring Unavailable NON STAFF Primary Care Unavailable Maria Lindsey Attending Unavailab Maria Renee Admitting Unavailab Nancie Xiao Attending Unavailable Christi Bright Attending Unavailable Christi Bright Attending Unavailable Willow Caldwell Attending Unavailable Medications Current Medications Medication Drug Class(es) Dates Sig (Normalized) Sig (Original) [id number] 200 actuat albuterol 0.09 mg/actuat metered dose [...] albuterol CFC free 90 mcg/inh inhalation aerosol (2 sources) Start: 03-29-2020 take 2 puff(s) by inhalation four times daily albuterol CFC free 90 mcg/inh inhalation aerosol = 2 puff(s), Inhalation, QID Start Date: 03/29/20 Status: Ordered amLODIPine 5 mg oral tablet (3 sources) Dihydropyridine Calcium Channel Harry Start: 10-06-2024 End: 2025 amLODIPine 5 mg Tab Refills(s) 0 Start Date: 11/06/24 Status: Ordered aspirin 81 mg delayed release oral tablet (11 sources) Platelet Aggregation Inhibitor, Nonsteroidal Anti-inflammatory Drug Start: 04-01-2020 take 1 tablet by mouth once daily aspirin 81 mg Oral EC Tab 81 mg = 1 tab(s), Oral, Daily, Refills(s) 0 Start Date: 04/01/20 Status: Ordered take 1 tablet by mouth once charles y Aspirin 81 81 MG 1 tablet Orally Once a day Active atenolol 25 mg oral tablet (19 sources) beta-Adrenergic Harry Start: 03-29-2020 End: 10-07-2024 take 1 tablet by mouth once daily atenolol 25 mg Tab 25 mg = 1 tab(s), Oral, Daily Start Date: 03/29/20 Status: Ordered Atenolol Active atorvastatin 20 mg oral tablet (19 sources) HMG-CoA Reductase Inhibitor Start: 04-01-2020 End: [...] days Active Calcium and Magnesium oral tablet (2 sources) Start: 2019 take 1 tablet by mouth once daily Calcium and Magnesium oral tablet 1 tab(s), Oral, Daily, Refill(s) 0 Start Date: 04/01/20 Status: Ordered cholecalciferol 0.025 mg oral capsule (12 sources) Vitamin D take 1 capsule by mouth once daily cholecalciferol (Vitamin D-3) 25 MCG (1000 UT) capsule Take 1,000 Units by mouth Daily Active dextromethorphan hydrobromide 30 mg / pyrilamine maleate 30 mg oral tablet (1 source) Uncompetitive C-hnhdie-H-aspartat e Receptor Antagonist, Sigma-1 Agonist Start: 2021 take 1 tablet by mouth every six hours Magnolia DMT 30-30 MG 1 tablet Orally every 6 hours for 7 days Apr, Active docusate sodium 100 mg oral capsule (2 sources) Start: 2019 take 1 capsule by mouth twice daily as needed for constipation Colace 100 mg Cap 100 mg = 1 cap(s), Oral, BID, PRN for constipation Start Date: 04/01/20 Status: Ordered famotidine 20 mg oral tablet (16 sources) Histamine-2 Receptor Antagonist Start: 2019 End: 2024 take 1 tablet by mouth once daily famotidine 20 mg Tab 20 mg = 1 tab(s), Oral, Daily Start Date: 03/29/20 Status: Ordered Fish Oils (14 sources) Start: 2019 take 1 capsule by mouth once daily Fish Oil 1200 mg oral capsule 1,200 mg = 1 cap(s), Oral, Daily, Refills(s) 0 Start Date: 04/01/20 Status: Ordered omega-3 (Fish Oi l) 1200 MG capsule 1 capsule 1 (one) time each day at the same time Active loratadine 10 mg oral tablet (14 sources) Start: 04-01-2020 take 1 tablet by mouth once daily loratadine 10 mg Tab 10 mg = 1 tab(s), Oral, Daily, Refills(s) 0 Start Date: 04/01/20 Status: Ordered losartan potassium 50 mg oral tablet (19 sources) Angiotensin 2 Receptor Harry Start: 03-29-2020 End: 10-07-2024 take 1 tablet by mouth twice daily losartan 50 mg Tab 50 mg = 1 tab(s), Oral, BID Start Date: 03/29/20 Status: Ordered Losartan Potassi um Active magnesium oxide 400 mg oral tablet (13 sources) Start: 06-03-2024 End: 09-01-2024 take 1 tablet by mouth once daily MAGnesium-Oxide 400 (240 Mg) MG tablet Indications: Magnesium deficiency Take 1 tablet (400 mg) by mouth Daily 90 tablet 1 06/03/2024 09/01/2024 Active Start: 08-08-2022 magnesium oxid e Oral, Refills(s) 0 Start Date: 08/08/22 Status: Ordered meloxicam 15 mg oral tablet (19 sources) Nonsteroidal Anti-inflammatory Drug Start: 03-04-2024 End: 07-09-2024 take 0.5 tablet by mouth twice daily meloxicam (Mobic) 15 MG tablet Indications: Other chronic pain TAKE 1/2 TABLET BY MOUTH TWICE A DAY 90 tablet 1 07/09/2024 Active Start: 04-01-2020 take 1 tablet by chandler twice daily meloxicam 15 mg Tab 15 mg = 1 tab(s), Oral, BID, Refills(s) 0 Start Date: 04/01/20 Status: Ordered take 1 tablet by chandler th every twenty-four hours Meloxicam 15 MG 1 Tablet By Mouth daily Active take 1 tablet by chandler th every twelve hours Meloxicam 7.5 MG 1 tablet Orally Twice a day Active metFORMIN (5 sources) Biguanide Start: 08-08-2022 metformin Oral , [...] Dec, Not-Taking montelukast 10 mg oral tablet (15 sources) Leukotriene Receptor Antagonist Start: 09-12-2023 End: 10-07-2024 take 1 tablet by mouth at bedtime montelukast (Singulair) 10 MG tablet Indications: Environmental and seasonal allergies Take 1 tablet (10 mg) by mouth at bedtime 90 tablet 1 07/09/2024 10/07/2024 Active Multivital (3 sources) Multivital Activ e Stool Softener (3 sources) Stool Softener Active tiZANidine 4 mg oral tablet (19 sources) Central alpha-2 Adrenergic Agonist Start: 03-04-2024 [...] lenora vitamin b12 0.5 mg oral tablet (15 sources) Vitamin B12 take 1 tablet by [...] mg Vitamin B12 50 mcg oral tablet (2 sources) Start: 04-01-2020 take 1 tablet by mouth once daily Vitamin B12 50 mcg oral tablet 50 microgram = 1 tab(s), Oral, Daily, Refills(s) 0 Start Date: 04/01/20 Status: Ordered Vitamin D3 1000 intl units oral capsule (2 sources) Start: 04-01-2020 take 1 capsule by mouth once daily Vitamin D3 1000 intl units oral capsule 1,000 International_Unit = 1 cap(s), Oral, Daily, Refills(s) 0 Start Date: 04/01/20 Status: Ordered Problems Active Problems Problem Classification Problem Date Documented Date Episodic/Chronic Calculus of urinary tract (16 sources) Calculus of kidney; Translations: [Kidney stone] Onset: 07-17-2022 08-08-2022 Episodic Conditions associated with dizziness or vertigo (16 sources) Dizziness; Translations: [Dizziness and giddiness] Onset: 07-09-2024 08-24-2024 Episodic Diabetes mellitus without complication (17 sources) Prediabetes; Translations: [Prediabetes] Onset: 06-16-2022 01-02-2024 Episodic Disorders of lipid metabolism (17 sources) Hyperlipidemia, unspecified; Translations: [Mixed hyperlipidemia] Onset: 06-16-2022 09-12-2023 Chronic Esophageal disorders (16 sources) Gastroesophageal reflux disease without esophagitis; Translations: [Gastro-esophageal reflux disease without esophagitis] Onset: 01-08-2024 01-08-2024 Chronic Essential hypertension (20 sources) Essential (primary) hypertension; Translations: [Hypertensive disorder] Onset: 06-16-2022 03-23-2020 Chronic Genitourinary symptoms and ill-defined conditions (20 sources) Must strain to pass urine; Translations: [Nocturia] Onset: 09-18-2023 03-23-2020 Episodic Headache; including migraine (14 sources) Chronic tension-type headache; Translations: [Chronic tension-type headache, not intractable] Onset: 09-12-2023 09-12-2023 Chronic Hemorrhoids (14 sources) Internal hemorrhoids; Translations: [Other hemorrhoids] Onset: 09-18-2023 04-04-2020 Episodic Hyperplasia of prostate (20 sources) Benign prostatic hypertrophy with outflow obstruction; Translations: [Prostate nodule] Onset: 09-18-2023 04-27-2020 Chronic Immunizations and screening for infectious disease (15 sources) Contact with and (suspected) exposure to other viral communicable diseases; Translations: [Encounter for immunization] Onset: 09-14-2021 Resolved: 05-13-2022 Episodic Nausea and vomiting (1 source) Nausea with vomiting, unspecified; Translations: [NAUSEA WITH VOMITING UNSPECIFIED] Onset: 07-17-2022 Episodic Osteoarthritis (20 sources) Primary osteoarthritis, left shoulder; Translations: [Arthropathy, unspecified, shoulder region] Onset: 09-18-2023 09-18-2023 Chronic Other aftercare (1 source) exterminator (current) use of oral hypoglycemic drugs; Translations: [PUBLISHING EDITOR USE ORAL HYPOGLYCEMIC DX] Onset: 07-17-2022 Episodic Other aftercare (1 source) Other fdc (current) drug therapy; Translations: [OTH PUBLISHING EDITOR CURRENT DRUG THERAPY] Onset: 07-17-2022 Episodic Other connective tissue disease (4 sources) Cramp and spasm; Translations: [CRAMP AND SPASM] Onset: 06-14-2022 Episodic Other diseases of kidney and ureters (1 source) Urinary tract obstruction; Translations: [Other obstructive and reflux uropathy] Onset: 11-06-2024 Episodic Other ear and sense organ disorders (2 sources) Bilateral deafness 03-23-2020 Chronic Other ear and sense organ disorders (12 sources) Sensorineural hearing loss, bilateral; Translations: [Sensorineural hearing loss, bilateral] Onset: 09-18-2023 09-18-2023 Chronic Other injuries and conditions due to external causes (2 sources) H/O: head injury 03-23-2020 Episodic Other nervous system disorders (14 sources) Chronic pain; Translations: [Other chronic pain] Onset: 09-12-2023 09-12-2023 Chronic Other nervous system disorders (12 sources) Carpal tunnel syndrome; Translations: [Carpal tunnel syndrome, unspecified upper limb] Onset: 09-18-2023 09-18-2023 Chronic Other nervous system disorders (12 sources) Lesion of medial popliteal nerve, left lower limb; Translations: [Other mononeuritis of lower limb] Onset: 09-18-2023 09-18-2023 Chronic Other nervous system disorders (12 sources) Neuropathy of lower limb; Translations: [Lesion of lateral popliteal nerve, unspecified lower limb] Onset: 09-18-2023 09-18-2023 Chronic Other nervous system disorders (12 sources) Left tarsal tunnel syndrome; Translations: [Tarsal tunnel syndrome, left lower limb] Onset: 09-18-2023 09-18-2023 Chronic Other nervous system disorders (6 sources) Ataxia; Translations: [Ataxia, unspecified] 10-01-2024 Episodic Other nutritional; endocrine; and metabolic disorders (4 sources) Hypomagnesemia; Translations: [HYPOMAGNESEMIA] Onset: 09-12-2022 Chronic Other nutritional; endocrine; and metabolic disorders (15 sources) Obesity caused by energy imbalance; Translations: [Morbid (severe) obesity due to excess calories] Onset: 07-09-2024 07-09-2024 Chronic Other nutritional; endocrine; and metabolic disorders (15 sources) Body mass index 30+ - obesity; Translations: [Body mass index (BMI) 39.0-39.9, adult] Onset: 07-09-2024 07-09-2024 Chronic Other screening for suspected conditions (not mental disorders or infectious disease) (20 sources) Encounter for screening for malignant neoplasm of prostate; Translations: [Raised prostate specific antigen] Onset: 06-16-2022 04-27-2020 Episodic Other upper respiratory disease (15 sources) Allergic disposition; Translations: [Other allergic rhinitis] Onset: 09-12-2023 09-12-2023 Chronic Spondylosis; intervertebral disc disorders; other back problems (12 sources) Degeneration of cervical intervertebral disc; Translations: [...] or chronic Onset: 2 Resolved: 2 Episodic E Codes: Cut/pierceb (1 source) Contact with other sharp object(s), not elsewhere classified, initial encounter; Translations: [[facility] OTH SHRP OB NOT ELSW CLASS INI] Onset: 2 Episodic Joint disorders and dislocations; trauma-related (12 sources) Tear of medial meniscus of knee; Translations: [Other tear of medial meniscus, current injury, left knee, initial encounter] Onset: 4 09-18-2023 Episodic Nutritional deficiencies (13 sources) Magnesium deficiency; Translations: [Magnesium deficiency] Onset: 4 10-10-2023 Episodic Open wounds of extremities (4 sources) Laceration without foreign body of left index finger without damage to nail, initial encounter; Translations: [LAC W/O FB LT IF W/O DMG NAIL INIT] Onset: 2 Episodic Other connective tissue disease (12 sources) Weakness of foot; Translations: [Other symptoms and signs involving the musculoskeletal system] Onset: 4 09-18-2023 Episodic Other ear and sense organ disorders (12 sources) Bilateral tinnitus; Translations: [Tinnitus, bilateral] Onset: 4 09-18-2023 Episodic Other nervous system disorders (12 sources) Paresthesia of foot ; Translations: [Paresthesia of skin] Onset: 4 09-18-2023 Episodic Other non-traumatic joint disorders (13 sources) Pain in left knee; Translations: [Pain in joint, lower leg] Onset: 4 Episodic Other upper respiratory infections (12 sources) Acute upper respiratory infection; Translations: [Acute upper respiratory infection, unspecified] Onset: 4 Resolved: 4 01-08-2024 Episodic Phlebitis; thrombophlebitis and thromboembolism (12 sources) Thrombophlebitis; Translations: [Phlebitis and thrombophlebitis of unspecified site] Onset: 4 09-18-2023 Episodic Unclassified (1 source) CONTACT W/AND (SUSP) EXPOS COVID-19; Translations: [CONTACT W/AND (SUSP) EXPOS COVID-19] Onset: 2 Results Test Name Value Interpretation Reference Range Facility Ambulatory Visit Summaryon 0 11-06-2024 Ambulatory Visit Summary Ambulatory Visit Summary ZACH PAUL :1965 Visit Date:03/15/2020 Ambulatory Visit Instructions Your Diagnosis Elevated PSA Your Care Team Primary Care Physician - CHEYENNE YOUNGBLOOD CNP This Is Your Medications List albuterol (albuterol CFC free 90 mcg/inh inhalation aerosol) amlodipine (amLODIPine 5 mg Tab) aspirin (aspirin 81 mg Oral EC Tab) atenolol (atenolol 25 mg Tab) atorvastatin (atorvastatin 20 mg Tab) cholecalciferol (Vitamin D3 1000 intl units oral capsule) cyanocobalamin (Vitamin B12 50 mcg oral tablet) docusate (Colace 100 mg Cap) famotidine (famotidine 20 mg Tab) loratadine (loratadine 10 mg Tab) losartan (losartan 50 mg Tab) magnesium oxide meloxicam (meloxicam 15 mg Tab) metformin multivitamin with minerals (Calcium and Magnesium oral tablet) omega-3 polyunsaturated fatty acids (Fish Oil 1200 mg oral capsule) tizanidine (tizanidine 4 mg oral capsule) Procedures Performed TRUS (transrectal ultrasound) guided cryoablation of prostate (04/13/2020), Arthroscopy of knee (09/16/2017), Colonoscopy (09/16/2015), History of vasectomy (09/16/1993). What to do next You Need to Complete the Following PSA Free & Total, Blood, Routine collect, 11/04/24, Order for future visit, Lab Collect, Elevated PSA, Print Label By Order Location Medications What How Much When Instructions Unchanged albuterol (albuterol CFC free 90 mcg/ inh inhalation aerosol) 2 Puffs Inhalation 4 times a day Unchanged amlodipine (amLODIPine 5 mg Tab) Unchanged aspirin (aspirin 81 mg Oral EC Tab) 1 Tablets By Mouth Every day Unchanged atenolol (atenolol 25 mg Tab) 1 Tablets By Mouth Every day Unchanged atorvastatin (atorvastatin 20 mg Tab) 1 Tablets By Mouth Every day Unchanged cholecalciferol (Vitamin D3 1000 intl units oral capsule) 1 Capsules By Mouth Every day Unchanged cyanocobalamin (Vitamin B12 50 mcg oral tablet) 1 Tablets By Mouth Every day Unchanged docusate (Colace 100 mg Cap) 1 Capsules By Mouth 2 times a day as needed for for constipation Unchanged famotidine (famotidine 20 mg Tab) 1 Tablets By Mouth Every day Unchanged loratadine (loratadine 10 mg Tab) 1 Tablets By Mouth Every day Unchanged losartan (losartan 50 mg Tab) 1 Tablets By Mouth 2 times a day Unchanged magnesium oxide By Mouth Unchanged meloxicam (meloxicam 15 mg Tab) 1 Tablets By Mouth 2 times a day Unchanged metformin By Mouth Unchanged multivitamin with minerals (Calcium and Magnesium oral tablet) 1 Tablets By Mouth Every day Unchanged omega-3 polyunsaturated fatty acids (Fish Oil 1200 mg oral capsule) 1 Capsules By Mouth Every day Unchanged tizanidine (tizanidine 4 mg oral capsule) By Mouth 3 times a day Allergies No Known Allergies Problems Ongoing - Any problem that you are currently receiving treatment for. BPH with urinary obstruction Elevated PSA Internal hemorrhoid Kidney stone Nocturia Prostate nodule Straining to void Historical - Any problem that you are no longer receiving treatment for. Bilateral deafness BP - High blood pressure H/O: head injury Patient Survey You may receive a survey via text or e-mail asking about your office visit. Please share your experience with us by completing your survey. We appreciate your feedback and thank you for choosing us for your care. Normal [facility] Reminderson 11-06-2024 Reminders Reminders From: Shania Allison To: EU - Administrative; Sent: 11/06/2024 12:04:15 EST Show up: 07/06/2025 13:04:00 EDT Subject: 1 yr f/u w /PSA any ALEJANDRA Due Date/Time: 11/06/2025 12:04:00 EST Reminder/Recall pt seen on 11/06/2024 w/ AO in [place]. Pt will need an appointment in October of 2025 w/ PSA. Pt already PSA order. Normal [facility] Urology Office/Clinic Noteon 11-06-2024 Urology Office/Clinic Note Urology Office/Clinic Note Chief Complaint 1 yr fy HPI Staff 58 yo male here for follow up with psa Previous Dx: elevated PSA, kidney stone. PSA 10/12/19 - 4.76 12/02/19 - 5.83 03/13/21 - 5.43 06/14/22 - 4.84. PSAD 0.097 05/06/23 - 3.90 & 16.9%, PSAD 0.08 10/23/24 - 4.76 Patient denies any urinary symptoms, intermittent nocturia 1-2x. History of Present Illness I have reviewed and verified the staff HPI to be accurate for this encounter. Portions of this record may have been created with voice recognition artificial intelligence software, specifically [employer], [employer] and or [employer]. Substitutions may have occurred due to the inherent limitations of voice recognition and artificial intelligence software. Review of Systems PHQ Score Initial Depression Screen Score: 0 SCORE Physical Exam Vitals & Measurements HR: 65(Peripheral) RR: 16 BP: 142/88 HT: 74 in HT: 188 cm WT: 128 kg WT: 282.191 lb BMI: 36.22 General: Well developed, well nourished, in no acute distress. Genitourinary: Prostate: normal prostate, no hard nodule observed. Assessment/Plan KML pt GARETH 24 1. Elevated PSA (R97.20: Elevated prostate specific antigen [PSA]) PSA 10/12/19 - 4.76 12/02/19 - 5.83 03/13/21 - 5.43 06/14/22 - 4.84. PSAD 0.097 05/06/23 - 3.90 & 16.9%, PSAD 0.08 10/23/24 - 4.76, PSAD 0.095 TRUS/BX 04/13/2020 negative Neg confirm MDX 04/2020 Prostate vol 50gms Neg family hx ACOSTA neg Discussed most recent PSA. Hx of fluctuating PSA. Has been as high as 5.83 in previous years. Favorable PSA density. Will cont to monitor annually, pt agrees. -f/u 1 yr w/ PSA FT, sooner if needed Ordered: PSA Free & Total Urnls Dip Stick Auto w/o Microscopy POC [id number] 2. Kidney stone (N20.0: Calculus of kidney) CT 07/14/22 [facility] - 2 mm left ureterolith w/ mild associated obstructive uropathy Pt believes he passed stone, but was not caught in strainer. Denies hx of stones previously. Discussed generalized stone prevention - pt encouraged to increase fluid intake so that he/she producing 2.5L of urine daily. Add 1/4 cup of lemon juice to water throughout the day or can also drink sugar free lemonade or clear soda. Avoid dark saleem. Restrict sodium intake. Restrict animal protein. -cont symptomatic monitoring 3. BPH with urinary obstruction (N40.1: Benign prostatic hyperplasia with lower urinary tract symptoms) IPSS 1-2 (3), QoL 0 Not currently on any prostate/bladder meds UA today w/o signs of blood or infection -cont to monitor Other obstructive and reflux uropathy (N13.8: Other obstructive and reflux uropathy) Follow-up With When Contact Information Deangelo VARELA, Christi Monsalve, URL, URO Additional Instructions: 1 yr PSA FT Patient Education Benign Prostatic Hyperplasia Dietary Guidelines to Help Prevent Kidney Stones Problem List/Past Medical History Ongoing BPH with urinary obstruction Elevated PSA Internal hemorrhoid Kidney stone Nocturia Prostate nodule Straining to void Historical Bilateral deafness BP - High blood pressure H/O: head injury Procedure/Surgical History TRUS (transrectal ultrasound) guided cryoablation of prostate (04/13/2020), Arthroscopy of knee (09/16/2017), Colonoscopy (09/16/2015), History of vasectomy (09/16/1993). Medications albuterol CFC free 90 mcg/inh inhalation aerosol, 2 puff(s), Inhalation, QID amLODIPine 5 mg Tab aspirin 81 mg Oral EC Tab, 81 mg= 1 tab(s), Oral, Daily atenolol 25 mg Tab, 25 mg= 1 tab(s), Oral, Daily atorvastatin 20 mg Tab, 20 mg= 1 tab(s), Oral, Daily Calcium and Magnesium oral tablet, 1 tab(s), Oral, Daily Colace 100 mg Cap, 100 mg= 1 cap(s), Oral, BID, PRN famotidine 20 mg Tab, 20 mg= 1 tab(s), Oral, Daily Fish Oil 1200 mg oral capsule, 1200 mg= 1 cap(s), Oral, Daily loratadine 10 mg Tab, 10 mg= 1 tab(s), Oral, Daily losartan 50 mg Tab, 50 mg= 1 tab(s), Oral, BID magnesium oxide, Oral meloxicam 15 mg Tab, 15 mg= 1 tab(s), Oral, BID metformin, Oral tizanidine 4 mg oral capsule, Oral, TID Vitamin B12 50 mcg oral tablet, 50 mcg= 1 tab(s), Oral, Daily Vitamin D3 1000 intl units oral capsule, 1000 International_Unit= 1 cap(s), Oral, Daily Allergies No Known Allergies Social History Alcohol - Denies Alcohol Use, 03/23/2020 Current, Liquor, 1-2 times per month, 08/08/2022 Tobacco - Denies Tobacco Use, 03/23/2020 Never (less than 100 in lifetime) Tobacco Use:. Never Smokeless Tobacco Use:., 11/06/2024 Never (less than 100 in lifetime) Tobacco Use:. Never Smokeless Tobacco Use:., 06/12/2023 Family History Family history is negative Immunizations Vaccine Date Status Comments SARS-CoV-2 mRNA (neiln 5y-11y) vac - Not Given Postpone due to refusal Lab Results Ambulatory Point of Care Results Bilirubin Urine Dipstick: Negative (11/06/24 11:38:00) Blood Urine Dipstick: Negative (11/06/24 11:38:00) Glucose Urine Dipstick: Negative (11/06/24 11:38:00) (more content not included)... Normal [facility] Comment on above: Result Comment: Elec tronically Signed By: SANTOSH Caldwell APRN, Willow Recio\.br\Date and Time Signed: 11/06/24 12:11 EST HbA1c (Bld) [Mass fraction]o n 10-06-2024 Interpretation and review of laboratory results Normal [facility] - Hematology and Cell countson 10-06-2024 HbA1c (Bld) [Mass fraction] 5.60 % [facility] MR head/brain wo/w conon MR head/brain wo/w con [facility] Main [place] [address] [place] [address] MRI Report Signed Patient: Zach Paul MR#: [id number] 8 : 1965 Acct:[id number] Age/Sex: 59 / M ADM Date: 10/06/24 Loc: MR Room: Type: [facility] Attending Dr: Maria Lindsey DO Copies to: Maria Lindsey DO Ordering Provider: Maria Lindsey DO Date of Service: 10/06/24 MR/MR head/brain wo/w con: R27.0 MR head/brain wo/w con 10/06/2024 6:46 PM SIGN AND SYMPTOMS: Dizziness intermittently PROTOCOL: Multiplanar multisequence MR images of the brain were obtained with and without IV contrast CONTRAST: 20 mL of intravenous ProHance COMPARISON: None. FINDINGS: Extra axial spaces: Age appropriate. Hemorrhage: None. Ventricular system: Within normal limits. Basal cisterns: Within normal limits and not effaced. Cerebral parenchyma: There are nonspecific foci of T2 and FLAIR hyperintense signal in the frontal periventricular white matter bilaterally. Midline shift: None.. Cerebellum: Within normal limits. Brainstem: There is a vascular loop extending into the right internal auditory canal nearly to the apex possibly contributing to vascular nerve compression. Correlation with clinical signs recommended. Further interrogation with contrast-enhanced MRI specifically covering the internal auditory canals may give a more detailed characterization of this pathology. OTHER: Calvarium: Normal marrow signal. Vascular system: Satisfactory flow voids within the anterior and posterior circulation. Visualized Paranasal sinuses: Within normal limits. Visualized Orbits: Within normal limits. Visualized upper cervical spine: Within normal limits. Sella and skull base: Within normal limits. MR/MR head/brain wo/w con IMPRESSION: There is a vascular loop extending into the right internal auditory canal nearly to the apex possibly contributing to vascular nerve compression. Correlation with clinical signs recommended. Further interrogation with contrast-enhanced MRI specifically covering the internal auditory canals may give a more detailed characterization of this pathology. No acute intracranial pathology or abnormal postcontrast enhancement is noted otherwise. Impression dictated by: Elías Brock M.D.10/06/2024 10:04 PM Dictation Location: [place] [address] Transcribed By: JEN 10/06/242203 Dictated By: Elías Brock II, MD 10/06/242135 Signed By: 10/06/242203 Normal [facility] Magnetic resonance imaging r eportOrdered By: Elías Brock on 10-06-2024 Study report [facility] Main [place] [address] [place] [address] MRI Report Signed Patient: Zach Paul MR#: [id number] : 1965 Acct:[id number] Age/Sex: 59 / M ADM Date: 5 Loc: Room: Type: [facility] Attending Dr: Maria Lindsey DO Copies to: Maria Lindsey DO~ Ordering Provider: Maria Lindsey DO Date of Service: 10/06/24 MR/MR head/brain wo/w con: R27.0 MR head/brain wo/w con 10/06/2024 6:46 PM SIGN AND SYMPTOMS: Dizziness intermittently PROTOCOL: Multiplanar multisequence MR images of the brain were obtained with and without IV contrast CONTRAST: 20 mL of intravenous ProHance COMPARISON: None. FINDINGS: Extra axial spaces: Age appropriate. Hemorrhage: None. Ventricular system: Within normal limits. Basal cisterns: Within normal limits and not effaced. Cerebral parenchyma: There are nonspecific foci of T2 and FLAIR hyperintense signal in the frontal periventricular white matter bilaterally. Midline shift: None.. Cerebellum: Within normal limits. Brainstem: There is a vascular loop extending into the right internal auditory canal nearly to the apex possibly contributing to vascular nerve compression. Correlation with clinical signs recommended. Further interrogation with contrast-enhanced MRI specifically covering the internal auditory canals may give a more detailed characterization of this pathology. OTHER: Calvarium: Normal marrow signal. Vascular system: Satisfactory flow voids within the anterior and posterior circulation. Visualized Paranasal sinuses: Within normal limits. Visualized Orbits: Within normal limits. Visualized upper cervical spine: Within normal limits. Sella and skull base: Within normal limits. MR/MR head/brain wo/w con IMPRESSION: There is a vascular loop extending into the right internal auditory canal nearlyto the apex possibly contributing to vascular nerve compression. Correlation with clinical signs recommended. Further interrogation with contrast-enhanced MRI specifically covering the internal auditory canals may give a more detailed characterization of this pathology. No acute intracranial pathology or abnormal postcontrast enhancement is noted otherwise. Impression dictated by: Elías Brock M.D.10/06/2024 10:04 PM Dictation Location: [place] [address] Transcribed By: [facility] 10/06/242203 Dictated By: Elías Brock II, MD 10/06/242135 Signed By: 10/06/242203 [facility] Work Phone: ALL BUNon 10-01-2024 Urea nitrogen [Mass/Vol] 18 mg/dL 7.0 - 18.0 mg/dL [facility] No Panel Informationon 10-01 [facility] CREATININEon 10-01-2024 Creatinine [Mass/Vol] 1.31 mg/dL High 0.70 - 1.30 mg/dL [facility] GFR/1.73 sq M.predicted CKD-EPI (S/P/Bld) [Vol rate/Area] >60 >=60 mL/min/1.73m 2 [facility] Interpretation and review of laboratory results Abnormal [facility] EGFR-NON AF PARAGUAYAN 56 Low >=60 mL/min/1.73m 2 [facility] MAGNESIUMon 09-12-2022 Magnesium [Mass/Vol] 1.9 mg/dL Normal 1.8-2.4 [facility] Comment on above: Performed By: #### C BC #### [facility] [address] [address] [address] Krystal Friedman CBC AUTO DIFFon 07-13-2022 BASO # 0.1 103/ul Normal 0.0-0.1 [facility] Comment on above: Performed By: #### C BC #### [facility] [address] [place] [address] Dr. Krystal Friedman Basophils/100 WBC (Bld) 1.3 % Normal 0.2-2.0 [facility] Comment on above: Performed By: #### C BC #### [facility] [address] [place] [address] Dr. Krystal Friedman EO # 0.2 103/ul Normal 0.0-0.7 [facility] Comment on above: Performed By: #### C BC #### [facility] [address] [place] [address] Dr. Krystal Friedman Eosinophils/100 WBC (Bld) 2.6 % Normal 0.9-7.0 [facility] Comment on above: Performed By: #### C BC #### [facility] [address] [place] [address] Dr. Krystal Friedman Erythrocyte distribution width (RBC) [Ratio] 12.9 % Normal 11.0-15.0 [facility] Comment on above: Performed By: #### C BC #### [facility] [address] [place] [address] Dr. Krystal Friedman Hematocrit (Bld) [Volume fraction] 43.1 % Normal 42.0-54.0 [facility] Comment on above: Performed By: #### C BC #### [facility] [address] [place] [address] Dr. Krystal Friedman Hemoglobin (Bld) [Mass/Vol] 14.5 g/dL Normal 14.0-18.0 [facility] Comment on above: Performed By: #### C BC #### [facility] [address] [place] [address] Dr. Krystal Friedman IG # 0.02 10e3/ul Normal 0.00-0.03 [facility] Comment on above: Performed By: #### C BC #### [facility] [address] [place] [address] Dr. Krystal Friedman IG % 0.3 % Normal 0.0-0.5 [facility] Comment on above: Performed By: #### C BC #### [facility] [address] [place] [address] Dr. Krystal Friedman LYMPH # 2.2 103/ul Normal 1.2-3.8 [facility] Comment on above: Performed By: #### C BC #### [facility] [address] [place] [address] Dr. Krystal Friedman Lymphocytes/100 WBC (Bld) 31.0 % Normal 20.5-60.0 [facility] Comment on above: Performed By: #### C BC #### [facility] [address] [place] [address] Dr. Krystal Friedman MANUAL DIFF REQ NO Normal [facility] Comment on above: Performed By: #### C BC #### [facility] [address] [place] [address] Dr. Krystal Friedman MCH (RBC) [Entitic mass] 30.2 pg Normal 25.9-34.0 [facility] Comment on above: Performed By: #### C BC #### [facility] [address] [place] [address] Dr. Krystal Friedman MCHC (RBC) [Mass/Vol] 33.6 g/dL Normal 29.9-35.2 [facility] Comment on above: Performed By: #### C BC #### [facility] [address] [place] [address] Dr. Krystal Friedman MCV (RBC) [Entitic vol] 89.8 fL Normal 80.0-94.0 [facility] Comment on above: Performed By: #### C BC #### [facility] [address] [place] [address] Dr. Krystal Friedman MONO # 0.7 103/ul Normal 0.3-0.8 [facility] Comment on above: Performed By: #### C BC #### [facility] [address] [place] [address] Dr. Krystal Friedman Monocytes/100 WBC (Bld) 9.6 % Normal 1.7-12.0 [facility] Comment on above: Performed By: #### C BC #### [facility] [address] [place] [address] Dr. Krystal Friedman NEUT # 3.9 103/ul Normal 1.4-6.5 [facility] Comment on above: Performed By: #### C BC #### [facility] [address] [place] [address] Dr. Krystal Friedman Neutrophils/100 WBC (Bld) 55.2 % Normal 43.0-75.0 [facility] Comment on above: Performed By: #### C BC #### [facility] [address] [place] [address] Dr. Krystal Friedman Platelet mean volume (Bld) [Entitic vol] 10.1 fL Normal 9.5-13.5 [facility] Comment on above: Performed By: #### C BC #### [facility] [address] [place] [address] Dr. Krystal Friedman PLT 274 103/ul Normal 150-450 [facility] Comment on above: Performed By: #### C BC #### [facility] [address] [place] [address] Dr. Krystal Friedman RBC 4.80 106/ul Normal 4.70-6.10 [facility] Comment on above: Performed By: #### C BC #### [facility] [address] [place] [address] Dr. Krystal Friedman WBC 7.0 103/ul Normal 4.0-11.0 [facility] Comment on above: Performed By: #### C BC #### [facility] [address] [place] [address] ABD/PELV W CONon 07-13-20 CT ABD/PELV W CON EXAMINATION: CT ABD/ [...] DILMA SIU Date: 2022-07-13 08:34 Normal [facility] ER URINE PROFILEon 2 Bilirubin Ql (U) Negative Normal NEGATIVE [facility] Comment on above: Performed By: #### C BC #### [facility] [address] [place] [address] Dr. Krystal Friedman Clarity (U) CLEAR Normal CLEAR [facility] Comment on above: Performed By: #### C BC #### [facility] [address] [place] [address] Dr. Krystal Friedman Color (U) DK. YELLOW Normal YELLOW [facility] Comment on above: Performed By: #### C BC #### [facility] [address] [place] [address] Dr. Krystal Friedman ERUAHD A micrscopic examina tion will be performed if indicated. Normal [facility] Comment on above: Performed By: #### C BC #### [facility] [address] [place] [address] Dr. Krystal Friedman Glucose Ql (U) Negative Normal NEGATIVE [facility] Comment on above: Performed By: #### C BC #### [facility] [address] [place] [address] Dr. Krystal Friedman Hemoglobin Ql (U) LARGE Abnormal NEGATIVE [facility] Comment on above: Performed By: #### C BC #### [facility] [address] [place] [address] Dr. Krystal Friedman Ketones Ql (U) Negative Normal NEGATIVE [facility] Comment on above: Performed By: #### C BC #### [facility] [address] [place] [address] Dr. Krystal Friedman LEUKOCYTES Negative Normal NEGATIVE [facility] Comment on above: Performed By: #### C BC #### [facility] [address] [place] [address] Dr. Krystal Friedman Nitrite Ql (U) Negative Normal NEGATIVE [facility] Comment on above: Performed By: #### C BC #### [facility] [address] [place] [address] Dr. Krystal Friedman pH (U) 5.5 [pH] Normal 5-9 [facility] Comment on above: Performed By: #### C BC #### [facility] [address] [place] [address] Dr. Krystal Friedman SPEC GRAVITY 1.025 Normal 1.005-<=1.02 5 [facility] Comment on above: Performed By: #### C BC #### [facility] [address] [place] [address] Dr. Krystal Friedman UA PROTEIN TRACE Normal NEGATIVE/ TRACE [facility] Comment on above: Performed By: #### C BC #### [facility] [address] [place] [address] Dr. Krystal Friedman UR MICRO IND INDICATED Normal [facility] Comment on above: Performed By: #### C BC #### [facility] [address] [place] [address] Dr. Krystal Friedman Urobilinogen Qn (U) 0.2 {Jose'U}/dL Normal 0.2 - 1.0 [facility] Comment on above: Performed By: #### C BC #### [facility] [address] [place] [address] Dr. Krystal Friedman LACTATE/LACTIC ACIDon 2021 Lactate [Moles/Vol] 2.1 mmol/L Critically high 0.4-1.9 [facility] Comment on above: Performed By: #### L ACT #### [facility] [address] [place] [address] Dr. Krystal Friedman LIPASEon 07-13-2022 Lipase [Catalytic activity/Vol] 119.0 U/L Normal 73.0-393.0 [facility] Comment on above: Performed By: #### L IPA, HSTROPN, CMP #### [facility] [address] [address] [address] Krystal Friedman PROF 14(COMP METB)on 022 Albumin [Mass/Vol] 4.1 g/dL Normal 3.4-5.0 [facility] Comment on above: Performed By: #### L IPA, HSTROPN, CMP #### [facility] [address] [place] [address] Dr. Krystal Friedman Albumin/Globulin [Mass ratio] 1.2 {ratio} Normal [facility] Comment on above: Performed By: #### L IPA, HSTROPN, CMP #### [facility] [address] [place] [address] Dr. Krystal Friedman ALP [Catalytic activity/Vol] 50 U/L Normal 46-116 [facility] Comment on above: Performed By: #### L IPA, HSTROPN, CMP #### [facility] [address] [place] [address] Dr. Krystal Friedman ALT [Catalytic activity/Vol] 31 U/L Normal 16-63 [facility] Comment on above: Performed By: #### L IPA, HSTROPN, CMP #### [facility] [address] [place] [address] Dr. Krystal Friedmna Anion gap [Moles/Vol] 13.1 mmol/L Normal [facility] Comment on above: Performed By: #### L IPA, HSTROPN, CMP #### [facility] [address] [place] [address] Dr. Krystal Friedman AST [Catalytic activity/Vol] 19 U/L Normal 15-37 [facility] Comment on above: Performed By: #### L IPA, HSTROPN, CMP #### [facility] [address] [address] [address] Krystal Friedman Bilirubin [Mass/Vol] 0.4 mg/dL Normal 0.2-1.0 [facility] Comment on above: Performed By: #### L IPA, HSTROPN, CMP #### [facility] [address] [address] [address] Krystal Friedman Calcium [Mass/Vol] 9.2 mg/dL Normal 8.5-10.1 [facility] Comment on above: Performed By: #### L IPA, HSTROPN, CMP #### [facility] [address] [place] [address] Dr. Krystal Friedman Chloride [Moles/Vol] 108 mmol/L Critically high 98-107 [facility] Comment on above: Performed By: #### L IPA, HSTROPN, CMP #### [facility] [address] [address] [address] Krystal Friedman CO2 [Moles/Vol] 25.7 mmol/L Normal 21.0-32.0 [facility] Comment on above: Performed By: #### L IPA, HSTROPN, CMP #### [facility] [address] [place] [address] Dr. Krystal Friedman Creatinine [Mass/Vol] 1.48 mg/dL Critically high 0.70-1.30 [facility] Comment on above: Performed By: #### L IPA, HSTROPN, CMP #### [facility] [address] [place] [address] Dr. Krystal Friedman EGFR-AF PARAGUAYAN 59 mL/min/1.73m2 Critically low >=60 [facility] Comment on above: Performed By: #### L IPA, HSTROPN, CMP #### [facility] [address] [place] [address] Dr. Krystal Friedman EGFR-NON AF PARAGUAYAN 49 mL/min/1.73m2 Critically low >=60 [facility] Comment on above: Performed By: #### L IPA, HSTROPN, CMP #### [facility] [address] [address] [address] Krystal Friedman Globulin (S) [Mass/Vol] 3.4 g/dL Normal [facility] Comment on above: Performed By: #### L IPA, HSTROPN, CMP #### [facility] [address] [place] [address] Dr. Krystal Friedman Glucose [Mass/Vol] 135 mg/dL Critically high 74-106 [place] Comment on above: Performed By: #### L IPA, HSTROPN, CMP #### [facility] [address] [address] [address] Krystal Friedman Potassium [Moles/Vol] 3.8 mmol/L Normal 3.5-5.1 [facility] Comment on above: Performed By: #### L IPA, HSTROPN, CMP #### [facility] [address] [place] [address] Dr. Krystal Friedman Protein [Mass/Vol] 7.5 g/dL Normal 6.4-8.2 [facility] Comment on above: Performed By: #### L IPA, HSTROPN, CMP #### [facility] [address] [place] [address] Dr. Krystal Friedman Sodium [Moles/Vol] 143 mmol/L Normal 136-145 [facility] Comment on above: Performed By: #### L IPA, HSTROPN, CMP #### [facility] [address] [place] [address] Dr. Krystal Friedman Urea nitrogen [Mass/Vol] 21.0 mg/dL Critically high 7.0-18.0 [facility] Comment on above: Performed By: #### L IPA, HSTROPN, CMP #### [facility] [address] [place] [address] Dr. Krystal Friedman Urea nitrogen/Creatinin e [Mass ratio] 14.2 mg/mg Normal [facility] Comment on above: Performed By: #### L IPA, HSTROPN, CMP #### [facility] [address] [place] [address] Dr. Krystal Friedman TROPONIN, HIGH SENSITIVITYon 07-13-2022 HSTROP 7.7 pg/mL Normal 4.0-76.1 [facility] Comment on above: Result Comment: CUT- OFF POINTS HAVE BEEN ESTABLISHED BASED ON THE FOURTH UNIVERSAL DEFINITIONS OF MYOCARDIAL INFARCTION. THE UPPER REFERENCE LIMIT (URL) OF TROPONIN, DEFINED THE 99TH PERCENTILE OF cTnI DISTRIBUTION IN A REFERENCE POPULATION, HAS BEEN CONFIRMED THE DECISION THRESHOLD FOR WI DIAGNOSIS. Performed By: #### L IPA, HSTROPN, CMP #### [facility] [address] [place] [address] Dr. Krystal Friedman URINE MICROSCOPIC ONLYon BACTERIA TRACE Abnormal NONE SEEN [facility] Comment on above: Performed By: #### C BC #### [facility] [address] [place] [address] Dr. Krystal Friedman Bacteria identified Cx Nom (U) NOT INDICATED Normal [facility] Comment on above: Performed By: #### C BC #### [facility] [address] [place] [address] Dr. Krystal Friedman CAST NONE SEEN Normal NONE SEEN [facility] Comment on above: Performed By: #### C BC #### [facility] [address] [place] [address] Dr. Krystal Friedman Crystals LM Nom (Urine sed) NONE SEEN Normal NONE SEEN [facility] Comment on above: Performed By: #### C BC #### [facility] [address] [place] [address] Dr. Krystal Friedman Epithelial cells LM Ql (Urine sed) RARE Normal NONE SEEN /RARE [facility] Comment on above: Performed By: #### C BC #### [facility] [address] [place] [address] Dr. Krystal Friedman MUCOUS MODERATE Abnormal NONE SEEN [facility] Comment on above: Performed By: #### C BC #### [facility] [address] [place] [address] Dr. Krystal Friedman RBC 10-20 Abnormal 0-2 [facility] Comment on above: Performed By: #### C BC #### [facility] [address] [place] [address] Dr. Krystal Friedman WBC 2-5 Abnormal NONE SEEN [facility] Comment on above: Performed By: #### C BC #### [facility] [address] [place] [address] Dr. Krystal Friedman MICROALBUMIN URINEon 022 Albumin, Urine 31.8 ug/mL Normal Not Estab. [facility] Comment on above: Performed By: #### C BC #### [facility] [address] [place] [address] Dr. Krystal Friedman CBC AUTO DIFFon 06-14-2022 BASO # 0.1 103/ul Normal 0.0-0.1 [facility] Comment on above: Performed By: #### C BC #### [facility] [address] [place] [address] Dr. Krystal Friedman Basophils/100 WBC (Bld) 1.6 % Normal 0.2-2.0 [facility] Comment on above: Performed By: #### C BC #### [facility] [address] [place] [address] Dr. Krystal Friedman EO # 0.2 103/ul Normal 0.0-0.7 [facility] Comment on above: Performed By: #### C BC #### [facility] [address] [place] [address] Dr. Krystal Friedman Eosinophils/100 WBC (Bld) 4.5 % Normal 0.9-7.0 [facility] Comment on above: Performed By: #### C BC #### [facility] [address] [place] [address] Dr. Krystal Friedman Erythrocyte distribution width (RBC) [Ratio] 13.3 % Normal 11.0-15.0 [facility] Comment on above: Performed By: #### C BC #### [facility] [address] [place] [address] Dr. Krystal Friedman Hematocrit (Bld) [Volume fraction] 41.3 % Critically low 42.0-54.0 [facility] Comment on above: Performed By: #### C BC #### [facility] [address] [place] [address] Dr. Krystal Friedman Hemoglobin (Bld) [Mass/Vol] 13.8 g/dL Critically low 14.0-18.0 [facility] Comment on above: Performed By: #### C BC #### [facility] [address] [place] [address] Dr. Krystal Friedman IG # 0.01 10e3/ul Normal 0.00-0.03 [facility] Comment on above: Performed By: #### C BC #### [facility] [address] [place] [address] Dr. Krystal Friedman IG % 0.3 % Normal 0.0-0.5 [facility] Comment on above: Performed By: #### C BC #### [facility] [address] [place] [address] Dr. Krystal Friedman LYMPH # 1.2 103/ul Normal 1.2-3.8 [facility] Comment on above: Performed By: #### C BC #### [facility] [address] [place] [address] Dr. Krystal Friedman Lymphocytes/100 WBC (Bld) 32.0 % Normal 20.5-60.0 [facility] Comment on above: Performed By: #### C BC #### [facility] [address] [place] [address] Dr. Krystal Friedman MANUAL DIFF REQ NO Normal [facility] Comment on above: Performed By: #### C BC #### [facility] [address] [place] [address] Dr. Krystal Friedman MCH (RBC) [Entitic mass] 30.3 pg Normal 25.9-34.0 [facility] Comment on above: Performed By: #### C BC #### [facility] [address] [place] [address] Dr. Krystal Friedman MCHC (RBC) [Mass/Vol] 33.4 g/dL Normal 29.9-35.2 [facility] Comment on above: Performed By: #### C BC #### [facility] [address] [place] [address] Dr. Krystal Friedman MCV (RBC) [Entitic vol] 90.8 fL Normal 80.0-94.0 [facility] Comment on above: Performed By: #### C BC #### [facility] [address] [address] [address] Krystal Friedman MONO # 0.4 103/ul Normal 0.3-0.8 [facility] Comment on above: Performed By: #### C BC #### [facility] [address] [address] [address] Krystal Friedman Monocytes/100 WBC (Bld) 10.1 % Normal 1.7-12.0 [facility] Comment on above: Performed By: #### C BC #### [facility] [address] [place] [address] Dr. Krystal Friedman NEUT # 2.0 103/ul Normal 1.4-6.5 [facility] Comment on above: Performed By: #### C BC #### [facility] [address] [place] [address] Dr. Krystal Friedman Neutrophils/100 WBC (Bld) 51.5 % Normal 43.0-75.0 [facility] Comment on above: Performed By: #### C BC #### [facility] [address] [place] [address] Dr. Krystal Friedman Platelet mean volume (Bld) [Entitic vol] 9.6 fL Normal 9.5-13.5 [facility] Comment on above: Performed By: #### C BC #### [facility] [address] [place] [address] Dr. Krystal Friedman PLT 211 103/ul Normal 150-450 [facility] Comment on above: Performed By: #### C BC #### [facility] [address] [place], [place] [id number] Dr. Krystal Friedman RBC 4.55 106/ul Critically low 4.70-6.10 [facility] Comment on above: Performed By: #### C BC #### [facility] [address] [place] [address] Dr. Krystal Friedman WBC 3.8 103/ul Critically low 4.0-11.0 [facility] Comment on above: Performed By: #### C BC #### [facility] [address] [address] [address] Krystal Friedman CPKon 06-14-2022 CK [Catalytic activity/Vol] 307 U/L Normal 39-308 [facility] Comment on above: Performed By: #### M G, CMP, LIPID, CK #### [facility] [address] [address] [address] Krystal Friedman GLYCOHEMOGLOBIN A1Con 2021 ADA RECOMMENDATION SEE BELOW Normal [facility] Comment on above: Result Comment: ADA RECOMMENDED LIMIT 4.0 - 6.0 ADA THERAPEUTIC TARGET < 7.0 ACTION SUGGESTED > 7.0 Performed By: #### C BC #### [facility] [address] [place] [address] Dr. Krystal Friedman Glucose [Mass/Vol] 108 mg/dL Normal [facility] Comment on above: Performed By: #### C BC #### [facility] [address] [place] [address] Dr. Krystal Friedman HbA1c (Bld) [Mass fraction] 5.4 % Normal 4.5-6.2 [facility] Comment on above: Performed By: #### C BC #### [facility] [address] [place] [address] Dr. Krystal Friedman LIPID PROFILEon 06-14-2022 CHOL-HDL RATIO NORM SEE BELOW Normal [facility] Comment on above: Result Comment: 3.3 - 4.4 LOW RISK 4.4 - 7.1 AVERAGE RISK 7.1 - 11.0 MODERATE RISK >11.0 HIGH RISK Performed By: #### M G, CMP, LIPID, CK #### [facility] [address] [place] [address] Dr. Krystal Friedman Cholesterol [Mass/Vol] 134 mg/dL Normal <=200 [facility] Comment on above: Performed By: #### M G, CMP, LIPID, CK #### [facility] [address] [address] [address] Krystal Friedman Cholesterol in HDL [Mass/Vol] 35 mg/dL Critically low 40-60 [facility] Comment on above: Performed By: #### M G, CMP, LIPID, CK #### [facility] [address] [address] [address] Krystal Friedman Cholesterol in LDL [Mass/Vol] 78.2 mg/dL Normal [facility] Comment on above: Performed By: #### M G, CMP, LIPID, CK #### [facility] [address] [address] [address] Krystal Friedman Cholesterol.total/ Cholesterol in HDL [Mass ratio] 3.8 {ratio} Normal [facility] Comment on above: Performed By: #### M G, CMP, LIPID, CK #### [facility] [address] [address] [address] Krystal Friedman HDL NORMAL > or = 60 mg/dl - LO W CARDIOVASCULAR RISK <40 mg/dl - HIGH CARDIOVASCULAR RISK Normal [facility] Comment on above: Performed By: #### M G, CMP, LIPID, CK #### [facility] [address] [address] [address] Krystal Friedman LDL CALC NORMAL SEE BELOW Normal [facility] Comment on above: Result Comment: <100 mg/dl OPTIMAL 100 - 129 mg/dl NEAR OR ABOVE OPTIMAL 130 - 159 mg/dl BORDERLINE HIGH 160 - 189 mg/dl HIGH >190 mg/dl VERY HIGH Performed By: #### M G, CMP, LIPID, CK #### [facility] [address] [address] [address] Krystal Friedman Triglyceride [Mass/Vol] 104 mg/dL Normal <=150 [facility] Comment on above: Performed By: #### M G, CMP, LIPID, CK #### [facility] [address] [address] [address] Krystal Friedman VLDL CALC 20.8 mg/dL Normal [facility] Comment on above: Performed By: #### M G, CMP, LIPID, CK #### [facility] [address] [address] [address] Krystal Friedman MAGNESIUMon 06-14-2022 Magnesium [Mass/Vol] 1.7 mg/dL Critically low 1.8-2.4 [facility] Comment on above: Performed By: #### M G, CMP, LIPID, CK #### [facility] [address] [address] [address] Krystal Friedman PROF 14(COMP METB)on 022 Albumin [Mass/Vol] 3.6 g/dL Normal 3.4-5.0 [facility] Comment on above: Performed By: #### M G, CMP, LIPID, CK #### [facility] [address] [address] [address] Krystal Friedman Albumin/Globulin [Mass ratio] 1.2 {ratio} Normal [facility] Comment on above: Performed By: #### M G, CMP, LIPID, CK #### [facility] [address] [address] [address] Krystal Friedman ALP [Catalytic activity/Vol] 42 U/L Critically low 46-116 [facility] Comment on above: Performed By: #### M G, CMP, LIPID, CK #### [facility] [address] [address] [address] Krystal Friedman ALT [Catalytic activity/Vol] 46 U/L Normal 16-63 [facility] Comment on above: Performed By: #### M G, CMP, LIPID, CK #### [facility] [address] [address] [address] Krystal Friedman Anion gap [Moles/Vol] 8.2 mmol/L Normal [facility] Comment on above: Performed By: #### M G, CMP, LIPID, CK #### [facility] [address] [address] [address] Krystal Friedman AST [Catalytic activity/Vol] 28 U/L Normal 15-37 [facility] Comment on above: Performed By: #### M G, CMP, LIPID, CK #### [facility] [address] [address] [address] Krystal Friedman Bilirubin [Mass/Vol] 0.5 mg/dL Normal 0.2-1.0 [facility] Comment on above: Performed By: #### M G, CMP, LIPID, CK #### [facility] [address] [address] [address] Krystal Friedman Calcium [Mass/Vol] 8.6 mg/dL Normal 8.5-10.1 [facility] Comment on above: Performed By: #### M G, CMP, LIPID, CK #### [facility] [address] [address] [address] Krystal Friedman Chloride [Moles/Vol] 107 mmol/L Normal 98-107 [facility] Comment on above: Performed By: #### M G, CMP, LIPID, CK #### [facility] [address] [address] [address] Krystal Friedman CO2 [Moles/Vol] 30.0 mmol/L Normal 21.0-32.0 [facility] Comment on above: Performed By: #### M G, CMP, LIPID, CK #### [facility] [address] [place] [address] Dr. Krystal Friedman Creatinine [Mass/Vol] 1.19 mg/dL Normal 0.70-1.30 [facility] Comment on above: Performed By: #### M G, CMP, LIPID, CK #### [facility] [address] [place] [address] Dr. Krystal Friedman EGFR-AF PARAGUAYAN >60 Normal >=60 [facility] Comment on above: Performed By: #### M G, CMP, LIPID, CK #### [facility] [address] [address] [address] Krystal Friedman EGFR-NON AF PARAGUAYAN >60 Normal >=60 [facility] Comment on above: Performed By: #### M G, CMP, LIPID, CK #### [facility] [address] [address] [address] Krysatl Friedman Globulin (S) [Mass/Vol] 3.1 g/dL Normal [facility] Comment on above: Performed By: #### M G, CMP, LIPID, CK #### [facility] [address] [address] [address] Krystal Friedman Glucose [Mass/Vol] 101 mg/dL Normal 74-106 [facility] Comment on above: Performed By: #### M G, CMP, LIPID, CK #### [facility] [address] [place] [address] Dr. Krystal Friedman Potassium [Moles/Vol] 4.2 mmol/L Normal 3.5-5.1 [facility] Comment on above: Performed By: #### M G, CMP, LIPID, CK #### [facility] [address] [place] [address] Dr. Krystal Friedman Protein [Mass/Vol] 6.7 g/dL Normal 6.4-8.2 [facility] Comment on above: Performed By: #### M G, CMP, LIPID, CK #### [facility] [address] [place] [address] Dr. Krystal Friedman Sodium [Moles/Vol] 141 mmol/L Normal 136-145 [facility] Comment on above: Performed By: #### M G, CMP, LIPID, CK #### [facility] [address] [place] [address] Dr. Krystal Friedman Urea nitrogen [Mass/Vol] 21.0 mg/dL Critically high 7.0-18.0 [facility] Comment on above: Performed By: #### M G, CMP, LIPID, CK #### [facility] [address] [place] [address] Dr. Krystal Friedman Urea nitrogen/Creatinin e [Mass ratio] 17.6 mg/mg Normal [facility] Comment on above: Performed By: #### M G, CMP, LIPID, CK #### [facility] [address] [place] [address] Dr. Krystal Friedman UA RANDOM W/MICROSCOPICon BACTERIA NONE SEEN Normal NONE SEEN [facility] Comment on above: Performed By: #### C BC #### [facility] [address] [place] [address] Dr. Krystal Friedman Bilirubin Ql (U) Negative Normal NEGATIVE [facility] Comment on above: Performed By: #### C BC #### [facility] [address] [place] [address] Dr. Krystal Friedman CAST NONE SEEN Normal NONE SEEN [facility] Comment on above: Performed By: #### C BC #### [facility] [address] [place] [address] Dr. Krystal Friedman Clarity (U) SL CLOUDY Abnormal CLEAR [facility] Comment on above: Performed By: #### C BC #### [facility] [address] [place] [address] Dr. Krystal Friedman Color (U) YELLOW Normal YELLOW [facility] Comment on above: Performed By: #### C BC #### [facility] [address] [place] [address] Dr. Krystal Friedman Crystals LM Nom (Urine sed) NONE SEEN Normal NONE SEEN [facility] Comment on above: Performed By: #### C BC #### [facility] [address] [place] [address] Dr. Krystal Friedman Epithelial cells LM Ql (Urine sed) RARE Normal NONE SEEN /RARE [facility] Comment on above: Performed By: #### C BC #### [facility] [address] [place] [address] Dr. Krystal Friedman Glucose Ql (U) Negative Normal NEGATIVE [facility] Comment on above: Performed By: #### C BC #### [facility] [address] [place] [address] Dr. Krystal Friedman Hemoglobin Ql (U) Negative Normal NEGATIVE [facility] Comment on above: Performed By: #### C BC #### [facility] [address] [place] [address] Dr. Krystal Friedman Ketones Ql (U) Negative Normal NEGATIVE [facility] Comment on above: Performed By: #### C BC #### [facility] [address] [place] [address] Dr. Krystal Friedman LEUKOCYTES Negative Normal NEGATIVE [facility] Comment on above: Performed By: #### C BC #### [facility] [address] [place] [address] Dr. Krystal Friedman MUCOUS NONE SEEN Normal NONE SEEN [facility] Comment on above: Performed By: #### C BC #### [facility] [address] [place] [address] Dr. Krystal Friedman Nitrite Ql (U) Negative Normal NEGATIVE [facility] Comment on above: Performed By: #### C BC #### [facility] [address] [place] [address] Dr. Krystal Friedman pH (U) 5.5 [pH] Normal 5-9 [facility] Comment on above: Performed By: #### C BC #### [facility] [address] [place] [address] Dr. Krystal Friedman RBC 0-2 Normal 0-2 [facility] Comment on above: Performed By: #### C BC #### [facility] [address] [place] [address] Dr. Krystal Friedman SPEC GRAVITY >=1.030 Abnormal 1.005-<=1.02 5 [facility] Comment on above: Performed By: #### C BC #### [facility] [address] [place] [address] Dr. Krystal Friedman UA PROTEIN Negative Normal NEGATIVE/ TRACE [facility] Comment on above: Performed By: #### C BC #### [facility] [address] [place] [address] Dr. Krystal Friedman Urobilinogen Qn (U) 0.2 {Jose'U}/dL Normal 0.2 - 1.0 [facility] Comment on above: Performed By: #### C BC #### [facility] [address] [place] [address] Dr. Krystal Friedman WBC NONE SEEN Normal NONE SEEN [facility] Comment on above: Performed By: #### C BC #### [facility] [address] [place] [address] Dr. Krystal Friedman SARS-CoV-2 (COVID-19) RNA NA A+probe Ql (Resp)on 05-13-2022 SARS-CoV-2 (COVID-19) RNA LUISITO+probe Ql (Unsp spec) Positive [facility] Other XR FINGER MIN 2 VIEWSon 12-16 [...] EDDIE MARTINEZ Date: 2022-01-05 03:41 Normal [facility] Covid-19 PCR (CVDTBH)on SARS-CoV-2 (COVID-19) RNA LUISITO+probe Ql (Unsp spec) Detected Critically abnormal NOT DETECTED [facility] Comment on above: Result Comment: This test is not yet approved or cleared by the [place] FDA. When there are no FDA-approved or cleared tests available, and other criteria are met, FDA can make tests available under an emergency access mechanism called an Emergency Use Authorization (EUA). The EUA for this test is supported by the Network Professional of Health and Human Service's (HHS's) declaration [...] used). Performed By: #### C BC #### [facility] [address] [place] [address] Dr. Krystal Friedman COVID Quick Testingon 2020 Result Negative [facility] Other Quick Fluon 09-14-2021 FLUAV Ab CF (S) [Titer] Negative [facility] Other FLUBV Ab CF (S) [Titer] Negative [facility] Other Vital Signs Date Time Vital Sign Value Performing Clinician Facility 11-06-2024 11:50-0500 Diastolic blood pressure 88 mm[Hg] Willow Caldwell [facility] 11-06-2024 11:50-0500 Mean blood pressure 106 mm[Hg] Willow Orzech [facility] 11-06-2024 11:50-0500 Systolic blood pressure 142 mm[Hg] Willow Orzech [facility] 11-06-2024 11:47-0500 Blood Pressure Location Willow Orzech [facility] 11-06-2024 11:47-0500 Diastolic blood pressure 101 mm[Hg] Willow Orzech [facility] 11-06-2024 11:47-0500 Heart rate 65 /min Willow Orzech [facility] 11-06-2024 11:47-0500 Respiratory rate 16 /min Willow Orzech [facility] 11-06-2024 11:47-0500 Systolic blood pressure 163 mm[Hg] Willow Orzech [facility] 10-06-2024 09:43-0500 Diastolic blood pressure 86 mm[Hg] Cheyenne Youngblood MANAGER TESTING Work Phone: [facility] 10-06-2024 09:43-0500 Systolic blood pressure 138 mm[Hg] Cheyenne Youngblood MANAGER TESTING Work Phone: [facility] 10-06-2024 09:01-0500 Body mass index (BMI) [Ratio] 40.47 kg/m2 Cheyenne Youngblood MANAGER TESTING Work Phone: [facility] 10-06-2024 09:01-0500 Body temperature 98.49 [degF] Cheyenne Youngblood MANAGER TESTING Work Phone: [facility] 10-06-2024 09:01-0500 Body weight 131.63 kg Cheyenne Ford MANAGER TESTING Work Phone: [facility] 10-06-2024 09:01-0500 Heart rate 58 /min Cheyenne Ford MANAGER TESTING Work Phone: [facility] 10-06-2024 09:01-0500 Respiratory rate 20 /min Cheyenne Ford MANAGER TESTING Work Phone: [facility] 10-06-2024 09:01-0500 SaO2% (BldA) [Mass fraction] 97 % Cheyenne Ford MANAGER TESTING Work Phone: [facility] 10-01-2024 09:33-0500 Body mass index (BMI) [Ratio] 40.87 kg/m2 Christopher Rosalia DO Work Phone: [facility] 10-01-2024 09:33-0500 Body weight 132.9 kg Christopher Rosalia DO Work Phone: [facility] 10-01-2024 09:33-0500 Diastolic blood pressure 112 mm[Hg] Christopher Rosalia DO Work Phone: [facility] 10-01-2024 09:33-0500 Heart rate 69 /min Christopher Rosalia DO Work Phone: [facility] 10-01-2024 09:33-0500 SaO2% (BldA) [Mass fraction] 97 % Christopher Rosalia DO Work Phone: [facility] 10-01-2024 09:33-0500 Systolic blood pressure 182 mm[Hg] Christopher Rosalia DO Work Phone: [facility] 07-09-2024 09:36-0400 Body height 180.3 cm Cheyenne Ford MANAGER TESTING Work Phone: [facility] 07-09-2024 09:36-0400 Body mass index (BMI) [Ratio] 39.81 kg/m2 Cheyenne Ford MANAGER TESTING Work Phone: [facility] 07-09-2024 09:36-0400 Body temperature 98.1 [degF] Cheyenne Youngblood MANAGER TESTING Work Phone: [facility] 07-09-2024 09:36-0400 Body weight 129.46 kg Cheyenne Youngblood MANAGER TESTING Work Phone: [facility] 07-09-2024 09:36-0400 Diastolic blood pressure 90 mm[Hg] Cheyenne Thompsonz MANAGER TESTING Work Phone: [facility] 07-09-2024 09:36-0400 Heart rate 53 /min Cheyenneadilene Mnedezholz MANAGER TESTING Work Phone: [facility] 07-09-2024 09:36-0400 Respiratory rate 19 /min Cheyenne Thompsonz MANAGER TESTING Work Phone: [facility] 07-09-2024 09:36-0400 SaO2% (BldA) [Mass fraction] 98 % Cheyenne Youngblood MANAGER TESTING Work Phone: [facility] 07-09-2024 09:36-0400 Systolic blood pressure 130 mm[Hg] Cheyenne Thompsonz MANAGER TESTING Work Phone: [facility] 08-17-2022 14:35-0500 Body height 180.34 cm Kari [email or web address] Other [facility] Other 08-17-2022 14:35-0500 Body mass index (BMI) [Ratio] 39.05 kg/m2 [employer] [email or web address] Other [facility] Other 08-17-2022 14:35-0500 Body temperature 97.8 [degF] Kari Pillai Other [facility] Other 08-17-2022 14:35-0500 Body weight 127.01 kg Kari Pillai Other [facility] Other 08-17-2022 14:35-0500 SaO2% (BldA) [Mass fraction] 97 % Kari Pillai Other [facility] Other 05-13-2022 13:10-0400 Body height 180.34 cm Coty Valera Other [facility] Other 05-13-2022 13:10-0400 Body temperature 101.2 [degF] Coty Valera Other [facility] Other 05-13-2022 13:10-0400 SaO2% (BldA) [Mass fraction] 96 % Coty Valera Other [facility] Other 09-14-2021 11:15-0500 Body height 180.34 cm Kari Ginty Other [facility] Other 09-14-2021 11:15-0500 Body mass index (BMI) [Ratio] 39.05 kg/m2 Kari Ginty Other [facility] Other 09-14-2021 11:15-0500 Body temperature 98.6 [degF] Kari Ginty Other [facility] Other 09-14-2021 11:15-0500 Body weight 127.01 kg Kari Ginty Other [facility] Other 09-14-2021 11:15-0500 Respiratory rate 18 /min Kari Ginty Other [facility] Other 09-14-2021 11:15-0500 SaO2% (BldA) [Mass fraction] 93 % Kari Ginty Other [facility] [employer] Other Encounters Encounter Date Encounter Type Care Provider Facility Start: 11-06-2024 End: 11-06-2024 Patient encounter procedure Willow X Nessach [facility] Start: 11-06-2024 End: 11-06-2024 ambulatory Willow X Orzech Facility:[facility] Start: 10-06-2024 End: 10-06-2024 Patient encounter procedure Maria Lindsey DO Work Phone: [facility] [place] Work Phone: Start: 10-06-2024 End: 10-06-2024 ambulatory NON STAFF [facility] Work Phone: Start: 10-06-2024 End: 10-06-2024 Bamboo flowsheet Cheyenne Youngblood MANAGER TESTING Work Phone: [facility] Start: 10-06-2024 End: 10-06-2024 Bamboo flowsheet Cheyenne Ford MANAGER TESTING Work Phone: [facility] Start: 10-06-2024 End: 10-06-2024 Office outpatient visit 25 minutes Cheyenne Youngblood MANAGER TESTING Work Phone: [facility] Comment on above: Gastroesophageal ref lux disease without esophagitis (Primary Dx); Morbid (severe) obesity due to excess calories (CMS/HCC); Essential (primary) hypertension (CMS/HCC); Body mass index (BMI) 39.0-39.9, adult; Pre-diabetes; Dizziness; Mixed hyperlipidemia (CMS/HCC) Start: 10-06-2024 End: 10-06-2024 ambulatory CHEYENNE AICNabeelHOLZ Not Available Start: 10-01-2024 End: 10-01-2024 Bamboo flowsheet Maria Lindsey DO Work Phone: [facility] Start: 10-01-2024 End: 01-16-2025 Bamboo flowsheet Maria Brunnerett DO Work Phone: [facility] Start: 10-01-2024 End: 10-01-2024 Clinisync Result Encounter Cheyenne Youngblood MANAGER TESTING Work Phone: [facility] Unsolicited Start: 10-01-2024 End: 10-01-2024 ambulatory MARIA LINDSEY Not Available Start: 10-01-2024 End: 10-01-2024 Office outpatient new 45 minutes Mkhair Rosalia DO Work Phone: [facility] Comment on above: Ataxia (Primary Dx); Essential hypertension (CMS/HCC) Start: 08-24-2024 End: 08-24-2024 Orders Only Cheyenne Youngblood MANAGER TESTING Work Phone: [facility] Comment on above: Dizziness (Primary D x) Start: 07-09-2024 End: 07-09-2024 Bamboo flowsheet Cheyenne Youngblood MANAGER TESTING Work Phone: [facility] Start: 07-09-2024 End: 07-09-2024 Bamboo flowsheet Cheyenne Youngblood MANAGER TESTING Work Phone: [facility] Start: 07-09-2024 End: 07-09-2024 Office outpatient visit 25 minutes Cheyenne Youngblood MANAGER TESTING Work Phone: [facility] Comment on above: Essential (primary) hypertension (CMS/HCC) (Primary Dx); Morbid (severe) obesity due to excess calories (CMS/HCC); Body mass index (BMI) 39.0-39.9, adult; Needs flu shot; Pre-diabetes; Primary hypertension (CMS/HCC); Mixed hyperlipidemia (CMS/HCC); Environmental and seasonal allergies; Other chronic pain; Chronic tension-type headache, not intractable; Gastroesophageal reflux disease without esophagitis; Dizziness; DDD (degenerative disc disease), cervical Start: 07-09-2024 End: 07-09-2024 ambulatory CHEYENNE YOUNGBLOOD Not Available Start: 06-17-2024 End: 06-17-2024 ambulatory Christi M. Lue Facility:[facility] Start: 06-17-2024 End: 06-17-2024 Patient encounter procedure Christi ShiRosetta Azarsingh [facility] Start: 06-03-2024 End: 06-03-2024 Refill Cheyenne Aicnabeelholz MANAGER TESTING Work Phone: [facility] Comment on above: Environmental and se asonal allergies; Magnesium deficiency Start: 01-08-2024 End: 01-08-2024 ambulatory CHEYENNE AICHHOLZ Not Available Start: 12-25-2023 End: 12-25-2023 ambulatory ANNMARIE Adilene MALONE Not Available Start: 09-12-2022 End: 09-13-2022 ambulatory SEISMIC SURVEY ASSISTANT CHEYENNE AICHHOLZ Facility:[facility] Start: 08-17-2022 End: 08-17-2022 ambulatory Kari Pillai Other [facility] Other Start: 08-17-2022 Office outpatient vi sit 15 minutes Kari Pillai [facility] Start: 07-13-2022 End: 07-13-2022 ambulatory SEISMIC SURVEY ASSISTANT CHEYENNE AICHHOLZ Facility:[facility] Start: 06-14-2022 End: 06-15-2022 ambulatory SEISMIC SURVEY ASSISTANT CHEYENNE AICHHOLZ Facility:[facility] Start: 05-13-2022 End: 05-13-2022 ambulatory Cotydustin Valera Other [facility] Other Start: 05-13-2022 Office outpatient vi sit 15 minutes Coty Valera [facility] Start: 01-05-2022 End: 01-05-2022 ambulatory SEISMIC SURVEY ASSISTANT CHEYENNE AICHHOLZ Facility:[facility] Start: 09-18-2021 End: 09-18-2021 ambulatory SEISMIC SURVEY ASSISTANT CHEYENNE AICHHOLZ Facility:[facility] Start: 09-14-2021 End: 09-14-2021 ambulatory Kari Hernandez Other [facility] Other Start: 09-14-2021 Office outpatient vi sit 15 minutes Kari Didisandrakang [facility] Procedures Date Procedure Procedure Detail Performing Clinician Start: 10-06-2024 MRI of head Dalton Lindsey DO Work Phone: Start: 10-06-2024 Hemoglobin glycosylated a1c Cheyenne Mendezaida MANAGER TESTING Work Phone: Start: 10-01-2024 ALL BUN Cheyenne smithjacqueline MANAGER TESTING Work Phone: Start: 10-01-2024 TBH CREATININE Cheyenne barkleyoljacqueline MANAGER TESTING Work Phone: Start: 06-14-2022 PSA screening SEISMIC SURVEY ASSISTANT CHEYENNE FORD Comment on above: Performed By: #### C BC #### [facility] [address] [place] [address] Dr. Krystal Friedman Start: 04-13-2020 Ultrasonography guid ed transrectal cryoablation of prostate Christi Lue Start: 09-16-2017 Arthroscopy of knee Zari hy Lue Comment on above: left Start: 09-16-2015 Colonoscopy Cheyenne Crowder luisjacqueline MANAGER TESTING Work Phone: Start: 09-16-2015 Colonoscopy Christi Lue Comment on above: Dr. Payne Start: 09-16-1993 H/O: vasectomy Christi Nissa e Plan of Treatment Date Care Activity Detail Author Start: 09-16-2025 Screening for malign ant neoplasm of colon [facility] Start: 03-15-2025 Influenza vaccination Influenza Vacc ine (#1) [facility] Comment on above: Postponed from 05/17 (Patient Refused) Start: 11-12-2024 End: 11-12-2024 Patient encounter procedure 11/12/2024 9:00 AM EST Office Visit [facility] [address] [place] [id number] Cheyenne Youngblood NP [address] [place] [id number] [facility] [facility] Start: 11-11-2024 ambulatory Ambulatory Facility:[facility] Start: 11-11-2024 End: 11-11-2024 Patient encounter procedure 11/11/2024 8:30 AM EST Office Visit [facility] [address] [id number] Maria Lindsey DO [address] [place] [address] [id number] [facility] Start: 10-06-2024 End: 10-06-2024 Patient encounter procedure [facility] Comment on above: Gastroesophageal ref lux disease without esophagitis (Primary Dx); Morbid (severe) obesity due to excess calories (CMS/HCC); Essential (primary) hypertension (CMS/HCC); Body mass index (BMI) 39.0-39.9, adult; Pre-diabetes; Dizziness; Mixed hyperlipidemia (CMS/HCC) Start: 10-05-2024 End: 10-05-2024 Professional / ancillary services management 10/05/2024 1:45 PM EST Ancillary Procedure [facility] [address] [id number] [facility] Start: 10-01-2024 End: 10-01-2025 MR Brain WO and W contrast IV MR brain w and wo contrast routine Imaging High Priority Ataxia Expected: 10/01/2024, Expires: 10/01/2025 [facility] Comment on above: Expected: 10/01/2024 , Expires: 10/01/2025 Start: 10-01-2024 End: 10-01-2025 Vestibular test (VNG) Vestibular test (VNG) Neurology Routine Ataxia Expected: 10/01/2024 (Approximate), Expires: 10/01/2025 [facility] Work Phone: Comment on above: Expected: 10/01/2024 (Approximate), Expires: 10/01/2025 Start: 07-09-2024 End: 07-09-2025 CBC W Auto Differential panel - Blood CBC and differential Lab Routine Dizziness Expected: 07/09/2024 (Approximate), Expires: 07/09/2025 [facility] Comment on above: Expected: 07/09/2024 (Approximate), Expires: 07/09/2025 Start: 07-09-2024 End: 07-09-2025 Comprehensive metabolic 2000 panel - Serum or Plasma Comprehensive metabolic panel Lab Routine Dizziness Expected: 07/09/2024 (Approximate), Expires: 07/09/2025 [facility] Comment on above: Expected: 07/09/2024 (Approximate), Expires: 07/09/2025 Start: 07-09-2024 End: 07-09-2025 Hemoglobin A1c/Hemoglobin.total in Blood Hemoglobin A1c Lab Routine Pre-diabetes Expected: 07/09/2024 (Approximate), Expires: 07/09/2025 [facility] Work Phone: Comment on above: Expected: 07/09/2024 (Approximate), Expires: 07/09/2025 Start: 07-09-2024 End: 07-09-2025 XR Cervical spine 2 or 3 Views XR cervical spine 2 or 3 views Imaging Routine Dizziness DDD (degenerative disc disease), cervical Expected: 07/09/2024 (Approximate), Expires: 07/09/2025 [facility] Comment on above: Expected: 07/09/2024 (Approximate), Expires: 07/09/2025 Start: 07-09-2024 End: 07-09-2024 Patient encounter procedure [facility] Comment on above: Morbid (severe) obes ity due to excess calories (CMS/HCC); Essential (primary) hypertension (CMS/HCC); Body mass index (BMI) 39.0-39.9, adult Start: 05-17-2024 Influenza vaccination Influenza Vacc ine (#1) [facility] Start: 1965 Screening for malign ant neoplasm of colon [facility] Immunizations Immunization Date Immunization Notes Care Provider Daily coates 01-05-2022 diphtheria, tetanus toxoids and pertussis vaccine Cheyenne Youngblood NP Work Phone: [facility] NEGATED: Highlighted row has not occurred!08-08-2022 SARS-CoV-2 mRNA (tozinameran 5y-11y) vaccine Christi Bright [facility] Payers Date Payer Category Payer Self-pay 2022 Private Health Insurance [id number] 2019 Private Health Insurance [id number] 1965 Unknown [id number] 2.16.84 [id number] 1964 Unknown [id number] 2.16.84 [id number] 1964 Unknown [id number] 2.16.84 0.1.871405.3.579.2.593 1964 Unknown [id number] 2.16.84 0.1.484524.3.579.2.593 1964 Unknown [id number] 2.16.84 [id number] 1964 Unknown [id number] 2.16.84 0.1.481583.3.579.2.1259 1964 Unknown [id number] 2.16.84 0.1.046943.3.579.2.1259 1964 Unknown [id number] 2.16.84 0.1.958889.3.579.2.1259 1964 Unknown [id number] 2.16.84 0.1.719288.3.579.2.1259 1964 Unknown [id number] 2.16.84 0.1.797098.3.579.2.1259 1964 Unknown [id number] 2.16.8 40.1.292735.3.579.2.727 1964 Unknown [id number] 2.16.8 40.1.687822.3.579.2.727 1964 Unknown [id number] 2.16.8 40.1.249263.3.579.2.727 1964 Unknown [id number] 2.16.8 40.1.096044.3.579.2.727 1959 Private Health Insurance [id number] 1959 Unknown [id number] Unknown [id number] 2.16.8 [id number] Social History Date Type Detail Facility Unknown if ever smoked [facility] Start: 01-08-2024 End: 10-06-2024 Sex Assigned At [facility] Start: 06-12-2023 End: 11-06-2024 Tobacco smoking status Never smoked tobacco (finding) [facility] Tobacco smoking status Never [facility] Start: 01-08-2024 Tobacco use and exposure Smokeless tobacco non-user [facility] Start: 01-08-2024 End: 10-06-2024 Alcoholic beverage intake Ex-drinker (finding) [facility] Start: 01-08-2024 End: 10-06-2024 History of Social function [facility] Start: 01-08-2024 Alcohol Comment Coffine: mouta in dew 3 can daily [facility] Start: 1965 Sex assigned at Not on file [facility] Start: 10-07-2024 Sex Male (finding) [facility] Start: 1965 Sex Assigned At Male F [facility] Functional Status Date Assessment Result Facility 11-06-2024 Functional Status N/A [facility] Clinical Notes 09-14-2021 to 11-06-2024 LaboratoryCheyenne Youngblood, MANAGER TESTING - 10/06/2024 9:00 AM Wisam Youngblood, MANAGER TESTING - 10/06/2024 6:30 AM Wisam Youngblood, MANAGER TESTING - 10/06/2024 6:30 AM Wisam Youngblood, MANAGER TESTING - 10/06/2024 6:29 AM ESTPatient Instructions Note Date & Type Note Facility 11-06-2024 Hospital Discharge instructions Patient Education 11/06/2024 12:11:07 Benign Prostatic Hyperplasia Benign Prostatic Hyperplasia Benign prostatic hyperplasia (BPH) is an enlarged prostate gland that is caused by the normal aging process. The prostate may get bigger as a man gets older. The condition is not caused by cancer. The prostate is a walnut-sized gland that is involved in the production of semen. It is located in front of the rectum and below the bladder. The bladder stores urine. The urethra carries stored urine out of the body. An enlarged prostate can press on the urethra. This can make it harder to pass urine. The buildup of urine in the bladder can cause infection. Back pressure and infection may progress to bladder damage and kidney (renal) failure. What are the causes? This condition is part of the normal aging process. However, not all men develop problems from this condition. If the prostate enlarges away from the urethra, urine flow will not be blocked. If it enlarges toward the urethra and compresses it, there will be problems passing urine. What increases the risk? This condition is more likely to develop in men older than 50 years. What are the signs or symptoms? Symptoms of this condition include: Getting up often during the night to urinate. Needing to urinate frequently during the day. Difficulty starting urine flow. Decrease in size and strength of your urine stream. Leaking (dribbling) after urinating. Inability to pass urine. This needs immediate treatment. Inability to completely empty your bladder. Pain when you pass urine. This is more common if there is also an infection. Urinary tract infection (UTI). How is this diagnosed? This condition is diagnosed based on your medical history, a physical exam, and your symptoms. Tests will also be done, such as: A post-void bladder scan. This measures any amount of urine that may remain in your bladder after you finish urinating. A digital rectal exam. In a rectal exam, your health care provider checks your prostate by putting a lubricated, gloved finger into your rectum to feel the back of your prostate gland. This exam detects the size of your gland and any abnormal lumps or growths. An exam of your urine (urinalysis). A prostate specific antigen (PSA) screening. This is a blood test used to screen for prostate cancer. An ultrasound. This test uses sound waves to electronically produce a picture of your prostate gland. Your health care provider may refer you to a specialist in kidney and prostate diseases (urologist). How is this treated? Once symptoms begin, your health care provider will monitor your condition (active surveillance or watchful waiting). Treatment for this condition will depend on the severity of your condition. Treatment may include: Observation and yearly exams. This may be the only treatment needed if your condition and symptoms are mild. Medicines to relieve your symptoms, including: ?Medicines to shrink the prostate. ?Medicines to relax the muscle of the prostate. Surgery in severe cases. Surgery may include: ?Prostatectomy. In this procedure, the prostate tissue is removed completely through an open incision or with a laparoscope or robotics. ?Transurethral resection of the prostate (TURP). In this procedure, a tool is inserted through the opening at the tip of the penis (urethra). It is used to cut away tissue of the inner core of the prostate. The pieces are removed through the same opening of the penis. This removes the blockage. ?Transurethral incision (TUIP). In this procedure, small cuts are made in the prostate. This lessens the prostate's pressure on the urethra. ?Transurethral microwave thermotherapy (TUMT). This procedure uses microwaves to create heat. The heat destroys and removes a small amount of prostate tissue. ?Transurethral needle ablation (TUNA). This procedure uses radio frequencies to destroy and remove a small amount of prostate tissue. ?Interstitial laser coagulation (ILC). This procedure uses a laser to destroy and remove a small amount of prostate tissue. ?Transurethral electrovaporization (TUVP). This procedure uses electrodes to destroy and remove a small amount of prostate tissue. ?Prostatic urethral lift. This procedure inserts an implant to push the lobes of the prostate away from the urethra. Follow these instructions at home: Take cdpt-tdv-hzvkmlb and prescription medicines only as told by your health care provider. Monitor your symptoms for any changes. Contact your health care provider with any changes. Avoid drinking large amounts of liquid before going to bed or out in public. Avoid or reduce how much caffeine or alcohol you drink. Give yourself time when you urinate. Keep all follow-up visits. This is important. Contact a health care provider if: You have unexplained back pain. Your symptoms do not get better with treatment. You develop side effects from the medicine you are taking. Your urine becomes very dark or has a bad smell. Your lower abdomen becomes distended and you have trouble passing urine. Get help right away if: You have a fever or chills. You suddenly cannot urinate. You feel light-headed or very dizzy, or you faint. There are large amounts of blood or clots in your urine. Your urinary problems become hard to manage. You develop moderate to severe low back or flank pain. The flank is the side of your body between the ribs and the hip. These symptoms may be an emergency. Get help right away. Call 911. Do not wait to see if the symptoms will go away. Do not drive yourself to the hospital. Summary Benign prostatic hyperplasia (BPH) is an enlarged prostate that is caused by the normal aging process. It is not caused by cancer. An enlarged prostate can press on the urethra. This can make it hard to pass urine. This condition is more likely to develop in men older than 50 years. Get help right away if you suddenly cannot urinate. This information is not intended to replace advice given to you by your health care provider. Make sure you discuss any questions you have with your health care provider. Document Revised: 03/21/2022 Document Reviewed: 03/21/2022 [employer] Patient Education 2023 [employer]. 11/06/2024 12:11:06 Dietary Guidelines to Help Prevent Kidney Stones Dietary Guidelines to Help Prevent Kidney Stones Kidney stones are deposits of minerals and salts that form inside your kidneys. Your risk of developing kidney stones may be greater depending on your diet, your lifestyle, the medicines you take, and whether you have certain medical conditions. Most people can lower their risks of developing kidney stones by following these dietary guidelines. Your dietitian may give you more specific instructions depending on your overall health and the type of kidney stones you tend to develop. What are tips for following this plan? Reading food labels Choose foods with no salt added or low-salt labels. Limit your salt (sodium) intake to less than 1,500 mg a day. Choose foods with calcium for each meal and snack. Try to eat about 300 mg of calcium at each meal. Foods that contain 200 500 mg of calcium a serving include: ?8 oz (237 mL) of milk, xoskixv-zadiogjwyqvi-rnlsr milk, and calcium-fortifiedfruit juice. Calcium-fortified means that calcium has been added to these drinks. ?8 oz (237 mL) of kefir, yogurt, and soy yogurt. ?4 oz (114 g) of tofu. ?1 oz (28 g) of cheese. ?1 cup (150 g) of dried figs. ?1 cup (91 g) of cooked broccoli. ?One 3 oz (85 g) can of sardines or mackerel. Most people need 1,000 1,500 mg of calcium a day. Talk to your dietitian about how much calcium is recommended for you. Shopping Buy plenty of fresh fruits and vegetables. Most people do not need to avoid fruits and vegetables, even if these foods contain nutrients that may contribute to kidney stones. When shopping for convenience foods, choose: ?Whole pieces of fruit. ?Pre-made salads with dressing on the side. ?Low-fat fruit and yogurt smoothies. Avoid buying frozen meals or prepared deli foods. These can be high in sodium. Look for foods with live cultures, such as yogurt and kefir. Choose high-fiber grains, such as whole-wheat breads, oat bran, and wheat cereals. Cooking Do not add salt to food when cooking. Place a salt shaker on the table and allow each person to add their own salt to taste. Use vegetable protein, such as beans, textured vegetable protein (TVP), or tofu, instead of meat in pasta, casseroles, and soups. Meal planning Eat less salt, if told by your dietitian. To do this: ?Avoid eating processed or pre-made food. ?Avoid eating fast food. Eat less animal protein, including cheese, meat, poultry, or fish, if told by your dietitian. To do this: ?Limit the number of times you have meat, poultry, fish, or cheese each week. Eat a diet free of meat at least 2 days a week. ?Eat only one serving each day of meat, poultry, fish, or seafood. ?When you prepare animal proteins, cut pieces into small portion sizes. For most meat and fish, one serving is about the size of the palm of your hand. Eat at least five servings of fresh fruits and vegetables each day. To do this: ?Keep fruits and vegetables on hand for snacks. ?Eat one piece of fruit or a handful of berries with breakfast. ?Have a salad and fruit at lunch. ?Have two kinds of vegetables at dinner. You may be told to limit foods that are high in a substance called oxalate. These include: ?Spinach (cooked), rhubarb, beets, sweet potatoes, and Ugandan chard. ?Peanuts. ?Potato chips, argentine fries, and baked potatoes with skin on. ?Nuts and nut products. ?Chocolate. If you regularly take a diuretic medicine, make sure to eat at least 1 or 2 servings of fruits or vegetables that are high in potassium each day. These include: ?Avocado. ?Banana. ?Winifred, prune, carrot, or tomato juice. ?Baked potato. ?Cabbage. ?Beans and split peas. Lifestyle Drink enough fluid to keep your urine pale yellow. This is the most important thing you can do. Spread your fluid intake throughout the day. If you drink alcohol: ?Limit how much you have to: ?0 1 drink a day for women who are not . ?0 2 drinks a day for men. ?Know how much alcohol is in your drink. In the [place] one drink equals one 12 oz bottle of beer (355 mL), one 5 oz glass of wine (148 mL), or one 1 oz glass of hard liquor (44 mL). Lose weight if told by your health care provider. Work with your dietitian to find an eating plan and weight loss strategies that work best for you. General information Talk to your health care provider and dietitian about taking daily supplements. Depending on your health and the cause of your kidney stones, you may be told: ?Do not take high-dose supplements of vitamin C (1,000 mg a day or more). ?To take a calcium supplement. ?To take a daily probiotic supplement. ?To take other supplements such as magnesium, fish oil, or vitamin B6. Take kmxu-trp-tjorcsp and prescription medicines only as told by your health care provider. These include supplements. What foods should I limit? Limit your intake of the following foods, or eat them as told by your dietitian. Vegetables Spinach. Rhubarb. Beets. Canned vegetables. Pickles. Olives. Baked potatoes with skin. Grains Wheat bran. Baked goods. Salted crackers. Cereals high in sugar. Meats and other proteins Nuts. Nut butters. Large portions of meat, poultry, or fish. Salted, precooked, or cured meats, such as sausages, meat loaves, and hot dogs. Dairy Cheeses. Beverages Regular soft drinks. Regular vegetable juice. Seasonings and condiments Seasoning blends with salt. Salad dressings. Soy sauce. Ketchup. Barbecue sauce. Other foods Canned soups. Canned pasta sauce. Casseroles. Pizza. Lasagna. Frozen meals. Potato chips. Portuguese fries. The items listed above may not be a complete list of foods and beverages you should limit. Contact a dietitian for more information. What foods should I avoid? Talk to your dietitian about specific foods you should avoid based on the type of kidney stones you have and your overall health. Fruits Grapefruit. The item listed above may not be a complete list of foods and beverages you should avoid. Contact a dietitian for more information. Summary Kidney stones are deposits of minerals and salts that form inside your kidneys. You can lower your risk of kidney stones by making changes to your diet. The most important thing you can do is drink enough fluid. Drink enough fluid to keep your urine pale yellow. Talk to your dietitian about how much calcium you should have each day, and eat less salt and animal protein as told by your dietitian. This information is not intended to replace advice given to you by your health care provider. Make sure you discuss any questions you have with your health care provider. Document Revised: 12/13/2022 Document Reviewed: 12/13/2022 [employer] Patient Education 2023 [employer] Follow Up Care 11/03/2024 11:25:47 With:Deangelo VARELA, Christi Monsalve, LENINL, URO Address: When: Unknown Comments:1 yr PSA FT [facility] 11-06-2024 Evaluation + Plan note Diagnostic Tests PendingPSA Free & Total 11/06/24 Future Scheduled TestsPSA Free & Total 11/04/24 [facility] 11-06-2024 Note Patient Education Nephrology Dietary Guidelines to Help Prevent Kidney Stones Kidney stones are deposits of minerals and salts that form inside your kidneys. Your risk of developing kidney stones may be greater depending on your diet, your lifestyle, the medicines you take, and whether you have certain medical conditions. Most people can lower their risks of developing kidney stones by following these dietary guidelines. Your dietitian may give you more specific instructions depending on your overall health and the type of kidney stones you tend to develop. What are tips for following this plan? Reading food labels ??? Choose foods with no salt added or low-salt labels. Limit your salt (sodium) intake to less than 1,500 mg a day. ??? Choose foods with calcium for each meal and snack. Try to eat about 300 mg of calcium at each meal. Foods that contain 200?500 mg of calcium a serving include: ? 8 oz (237 mL) of milk, vjxjcyk-ipoblelngzpr-uznxy milk, and calcium-fortifiedfruit juice. Calcium-fortified means that calcium has been added to these drinks. ? 8 oz (237 mL) of kefir, yogurt, and soy yogurt. ? 4 oz (114 g) of tofu. ? 1 oz (28 g) of cheese. ? 1 cup (150 g) of dried figs. ? 1 cup (91 g) of cooked broccoli. ? One 3 oz (85 g) can of sardines or mackerel. Most people need 1,000?1,500 mg of calcium a day. Talk to your dietitian about how much calcium is recommended for you. Shopping ??? Buy plenty of fresh fruits and vegetables. Most people do not need to avoid fruits and vegetables, even if these foods contain nutrients that may contribute to kidney stones. ??? When shopping for convenience foods, choose: ? Whole pieces of fruit. ? Pre-made salads with dressing on the side. ? Low-fat fruit and yogurt smoothies. ??? Avoid buying frozen meals or prepared deli foods. These can be high in sodium. ??? Look for foods with live cultures, such as yogurt and kefir. ??? Choose high-fiber grains, such as whole-wheat breads, oat bran, and wheat cereals. Cooking ??? Do not add salt to food when cooking. Place a salt shaker on the table and allow each person to add their own salt to taste. ??? Use vegetable protein, such as beans, textured vegetable protein (TVP), or tofu, instead of meat in pasta, casseroles, and soups. Meal planning ??? Eat less salt, if told by your dietitian. To do this: ? Avoid eating processed or pre-made food. ? Avoid eating fast food. ??? Eat less animal protein, including cheese, meat, poultry, or fish, if told by your dietitian. To do this: ? Limit the number of times you have meat, poultry, fish, or cheese each week. Eat a diet free of meat at least 2 days a week. ? Eat only one serving each day of meat, poultry, fish, or seafood. ? When you prepare animal proteins, cut pieces into small portion sizes. For most meat and fish, one serving is about the size of the palm of your hand. ??? Eat at least five servings of fresh fruits and vegetables each day. To do this: ? Keep fruits and vegetables on hand for snacks. ? Eat one piece of fruit or a handful of berries with breakfast. ? Have a salad and fruit at lunch. ? Have two kinds of vegetables at dinner. ??? You may be told to limit foods that are high in a substance called oxalate. These include: ? Spinach (cooked), rhubarb, beets, sweet potatoes, and Ug[place]an chard. ? Peanuts. ? Potato chips, argentine fries, and baked potatoes with skin on. ? Nuts and nut products. ? Chocolate. ??? If you regularly take a diuretic medicine, make sure to eat at least 1 or 2 servings of fruits or vegetables that are high in potassium each day. These include: ? Avocado. ? Banana. ? Winifred, prune, carrot, or tomato juice. ? Baked potato. ? Cabbage. ? Beans and split peas. Lifestyle ??? Drink enough fluid to keep your urine pale yellow. This is the most important thing you can do. Spread your fluid intake throughout the day. ??? If you drink alcohol: ? Limit how much you have to: ? 0?1 drink a day for women who are not . ? 0?2 drinks a day for men. ? Know how much alcohol is in your drink. In the [place] one drink equals one 12 oz bottle of beer (355 mL), one 5 oz glass of wine (148 mL), or one 1? oz glass of hard liquor (44 mL). ??? Lose weight if told by your health care provider. Work with your dietitian to find an eating plan and weight loss strategies that work best for you. General information ??? Talk to your health care provider and dietitian about taking daily supplements. Depending on your health and the cause of your kidney stones, you may be told: ? Do not take high-dose supplements of vitamin C (1,000 mg a day or more). ? To take a calcium supplement. ? To take a daily probiotic supplement. ? To take other supplements such as magnesium, fish oil, or vitamin B6. ??? Take rnbk-ywy-ulmhaee and prescription medicines only as told by your health (more content not included)... [facility] 10-06-2024 History of Present illness Narrative Images from the original note were not included. Zach Paul is a 59 y.o. male presents with chief complaint of Hypertension HPI: Hypertension This is a chronic problem. The current episode started more than 1 year ago. The problem is unchanged. The problem is uncontrolled. Associated symptoms include anxiety. Pertinent negatives include no chest pain, headaches, malaise/fatigue, orthopnea, peripheral edema or shortness of breath. There are no associated agents to hypertension. Risk factors for coronary artery disease include dyslipidemia, male gender and obesity. Past treatments include angiotensin blockers and beta blockers. The current treatment provides moderate improvement. There are no compliance problems. There is no history of kidney disease, CAD/[place] or heart failure. SUBJECTIVE: MEDICATIONS: Current Outpatient Medications Medication Instructions amLODIPine (NORVASC) 5 mg, Oral, Every evening aspirin 81 mg, Daily atenolol (TENORMIN) 25 mg, Oral, Daily atorvastatin (LIPITOR) 20 mg, Oral, Every evening cholecalciferol (VITAMIN D-3) 1,000 Units, Daily cyanocobalamin (VITAMIN B-12) 500 mcg, Daily RT famotidine (PEPCID) 20 mg, Oral, Every 24 hours, 1 (one) time each day at the same time loratadine (Claritin) 10 MG tablet Every 24 hours losartan (COZAAR) 50 mg, Oral, 2 times daily magnesium oxide (MAG-OX) 400 mg, Daily meloxicam (Mobic) 15 MG tablet TAKE 1/2 TABLET BY MOUTH TWICE A DAY montelukast (SINGULAIR) 10 mg, Oral, Nightly omega-3 (Fish Oil) 1200 MG capsule 1 capsule, Every 24 hours tiZANidine (ZANAFLEX) 4 mg, Oral, Nightly PRN ALLERGIES: No Known Allergies REVIEW OF SYMPTOMS: Review of Systems Constitutional: Negative for activity change, appetite change, malaise/fatigue and unexpected weight change. HENT: Negative for ear pain, nosebleeds, sneezing, trouble swallowing and voice change. Eyes: Negative for pain, discharge and visual disturbance. Respiratory: Negative for apnea, chest tightness, shortness of breath and wheezing. Cardiovascular: Negative for chest pain, orthopnea and leg swelling. Gastrointestinal: Negative for abdominal distention, blood in stool, constipation and diarrhea. Genitourinary: Negative for decreased urine volume, difficulty urinating, dysuria and hematuria. Skin: Negative for color change. Neurological: Negative for dizziness, tremors, seizures and headaches. Psychiatric/Behavioral: Negative for agitation, decreased concentration, hallucinations, [...] not on file. OBJECTIVE: Visit Vitals BP 138/86 (BP Location: Right arm, Patient Position: Sitting, BP Cuff Size: Large adult) Pulse 58 Temp 98.5 F (Temporal) Resp 20 Wt 290 lb 3.2 oz SpO2 97% BMI 40.47 kg/m Smoking Status Never BSA 2.57 m Physical Exam Vitals and nursing note reviewed. Constitutional: Appearance: Normal appearance. HENT: Head: Normocephalic. Right Ear: External ear normal. Left Ear: External ear normal. Nose: Nose normal. Mouth/Throat: Mouth: Mucous membranes are moist. Pharynx: Oropharynx is clear. Eyes: Extraocular Movements: Extraocular movements intact. Conjunctiva/sclera: Conjunctivae normal. Cardiovascular: Rate and Rhythm: Normal rate and regular rhythm. Pulses: Normal pulses. Heart sounds: Normal heart sounds. Pulmonary: Effort: Pulmonary effort is normal. Breath sounds: Normal breath sounds. Abdominal: General: Bowel sounds are normal. Palpations: Abdomen is soft. Musculoskeletal: Cervical back: Neck supple. Skin: General: Skin is warm and dry. Capillary Refill: Capillary refill takes 2 to 3 seconds. Neurological: General: No focal deficit present. Mental Status: He is alert. Psychiatric: Mood and Affect: Mood normal. Behavior: Behavior normal. Thought Content: Thought content normal. Judgment: Judgment normal. ASSESSMENT AND PLAN: Follow up in about 4 weeks (around 11/03/2024) for Recheck. Problem List Items Addressed This Visit Mixed hyperlipidemia (CMS/HCC) On statin therapy Check labs yearly and prn dose changes Current lipid panel: 07/09/25 TC 158, LDL 96, Trigs 122, HDL 35 Essential (primary) hypertension (CMS/HCC) Please check blood pressure daily and record DASH diet Limit caffeine Take medication as directed Contact office if chest pain, pressure, dizziness, shortness of breath, swelling legs Recommend slow position changes Current meds: atenolol, losartan Recent visit to Neurology it was elevated 182/112\ Add amlodipine at 5mg evening Relevant Medications amLODIPine (Norvasc) 5 MG tablet Pre-diabetes A1c on 07/09/25 was 6.5% Will recheck today in office A1c: Relevant Orders POCT glycosylated hemoglobin (Hb A1C) docked device (Completed) Gastroesophageal reflux disease without esophagitis - Primary Recommendations: freq small meals, nothing to eat or drink at least 2 hours prior to bed, limit caffeine, alcohol, as well as spicy foods Meds to limit or avoid if possible: NSAIDS Elevate HOB if possible Current meds: pepcid Morbid (severe) obesity due to excess calories (CMS/HCC) Discussed with patient their BMI (actual, verses recommended). We have also discussed lifestyle modifications: attempts to perform physical activity as chronic conditions allow, also to monitor dietary intake: increasing protein/fruits/veggies and lowering carb intake (unless contraindicated). Limit sodas, juices, and sugary drinks. Body mass index (BMI) 39.0-39.9, adult Dizziness Has seen Neurology just recently, on ASA 81mg, MRI brain was ordered as well Unsure if related to either elevated BP or anxiety??? Consider depression/anxiety treatment at next appt Associated Problem(s): Mixed hyperlipidemia (CMS/HCC) On statin therapy Check labs yearly and prn dose changes Current lipid panel: 07/09/25 TC 158, LDL 96, Trigs 122, HDL 35 Associated Problem(s): Dizziness Has seen Neurology just recently, on ASA 81mg, MRI brain was ordered as well Unsure if related to either elevated BP or anxiety??? Consider depression/anxiety treatment at next appt Associated Problem(s): Pre-diabetes A1c on 07/09/25 was 6.5% Will recheck today in office A1c: Associated Problem(s): Morbid (severe) obesity due to excess calories (CMS/HCC) Discussed with patient their BMI (actual, verses recommended). We have also discussed lifestyle modifications: attempts to perform physical activity as chronic conditions allow, also to monitor dietary intake: increasing protein/fruits/veggies and lowering carb intake (unless contraindicated). Limit sodas, juices, and sugary drinks. Associated Problem(s): Gastroesophageal reflux disease without esophagitis Recommendations: freq small meals, nothing to eat or drink at least 2 hours prior to bed, limit caffeine, alcohol, as well as spicy foods Meds to limit or avoid if possible: NSAIDS Elevate HOB if possible Current meds: pepcid Associated Problem(s): Essential (primary) hypertension (CMS/HCC) Please check blood pressure daily and record DASH diet Limit caffeine Take medication as directed Contact office if chest pain, pressure, dizziness, shortness of breath, swelling legs Recommend slow position changes Current meds: atenolol, losartan Recent visit to Neurology it was elevated 182/112\ Add amlodipine at 5mg evening documented in this encounter [facility] 10-06-2024 Instructions Cheyenne Youngblood NP - 10/06/2024 9:00 AM EST Get MRI Add amlodipine 5mg at night, check blood pressures twice a day and record documented in this encounter [facility] 10-01-2024 History of Present illness Narrative Images from the original note were not included. Dizziness Subjective Zach Paul, 59 y.o., male Patient presents today for a neurologic consult at the request of Cheyenne Youngblood CNP for dizziness. Patient states he has been experiencing dizziness since July. He states this was mainly happening when going to sleep when sleeping on his right side. He was also experiencing intermittent dizziness in [place] when he was laying on either side [...] Alcohol use: Not Currently Comment: Ludivina: scott rizzo 3 can daily Allergies: Patient has no [...] , wrist extensors , wrist flexor , it security administrator strength 5/5. LUE Strength deltoid , biceps , triceps , wrist extensors , wrist flexor , it security administrator strength 5/5. RLE Strength illopsoas, quadriceps, tibialis [...] reflex 1+ . Toro's sign negative. Coordination: [id number] testing and rapid alternating movements are normal [...] and return instructions documented in this encounter [facility] 08-24-2024 History of Present illness Narrative Associated Problem(s): Dizziness Suspect this is more from cervical etiology Check some labs No red flags Differentials: DDD, BPPV If labs normal, and xray normal will send to neuro If cervical looks to be problem will go to Pain [facility] documented in this encounter [facility] 07-09-2024 History of Present illness Narrative Associated Problem(s): Dizziness Suspect this [...] from the original note were not included. Zach Paul is a 59 y.o. male presents [...] compliance problems. There is no history of CAD/[place] or PVD. GERD He reports no abdominal [...] Morbid (severe) obesity due to excess calories ([facility]) Body mass index (BMI) 39.0-39.9, adult Needs [...] or 3 views documented in this encounter [facility] 08-17-2022 Evaluation note Encounter Date Diagnosis [...] understanding and is agreeable with treatment plan [facility] Other 08-28-2022 Evaluation note* Encounter Date Diagnosis Assessment Notes Treatment Notes Treatment Clinical Notes Apr, Contact with and (suspected) exposure to other viral communicable diseases (ICD-10 - Z20.828) Apr, COVID-19 (ICD-10 - U07.1) Today you tested positive for the COVID virus. This mean you need to follow all CDC quarantine guidelines found at [email or web address] v. It is important to rest, increase [...] weeks for the cough to go away. [facility] Other 12-30-2021 Evaluation note* Encounter Date Diagnosis [...] Patient care instructions given in writting by [facility] Care At Home document [facility] Other Evaluation + Plan note No data available for this section [facility] evaluation note* Diagnosis Primary hypertension (CMS/HCC)- Primary Unspecified [...] Unspecified essential hypertension documented in this encounter [facility] HealthcareEvaluation note* Diagnosis Primary hypertension (CMS/HCC)- Primary [...] intervertebral disc Dizziness- Primary Dizziness and giddiness Gastroesophageal reflux disease without esophagitis- Primary Esophageal reflux Morbid (severe) obesity due to excess calories (CMS/HCC) Essential (primary) hypertension (CMS/HCC) Unspecified essential hypertension Body mass index (BMI) 39.0-39.9, adult Pre-diabetes Other abnormal glucose Dizziness Dizziness and giddiness Mixed hyperlipidemia (CMS/HCC) Mixed hyperlipidemia documented in this encounter [facility] HealthcareEvaluation noteNo assessment [facility] Work Phone: History general Narrative - Reported* Type Description Date Medical History Tinnitis Medical History Hyperlipidemia 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 Medical History Vit. D def. Medical History Lt knee Bakers cyst Medical History HTN Surgical History Vasectomy 1993 Surgical History Lt knee arthroscope per Dr.Step malcolm 09/03/17 Surgical History biopsy on prostate Surgical History b/l carpal tunnel release Hospitalization History see above [facility] Other History general Narrative - Reported* Type [...] carpal tunnel release Hospitalization History see above [facility] Other Hospital Discharge instructions No data available for this section [facility] progress note No data available for this section [facility] reason for visit Narrative* Consultation (Routine) - Closed Specialty Diagnoses / Procedures Referred By Barry t Referred To Contact Neurology Diagnoses Dizziness Procedures [place] OFFICE/OUTPATIENT NEW HIGH MDM Cheyenne Youngblood NP [address] [place] [address] Phone: tel: fax: Iván Ocampo MD [address] [place] [address] Phone: tel: fax: Referral ID Status Reason Start Date Expiration Date V isits Requested Visits Authorized [id number] Closed Consult and Treat 08/24/2024 02/20/2025 1 1 [facility] Summary Purpose Family History No Family History Records Found No data available for this section No Family History Records FoundNo Family History Records Found No data available for this section No Family History Records Found Advance Directives No Advanced Directives Records Found Advance Directive Response Recorded Date/ Time Advance Directives No October 01, 2024 2:50pm Chief Complaint and Reason for Visit Chief Complaint Admit Date r27.0 October 06, 2024 5 :30pm Additional Source Comments REASON FOR VISIT (unrecogniz ed section and content) Reason Comments Med Refill Reason Comments Hypertension (unrecognized sect ion and content) No Status Records FoundNo Status Records FoundNo Status Records FoundNo Status Records Found INFORMATION SOURCE (unrecogn ized section and content) DATE CREATED AUTHOR 09/15/2022 [facility] DATE CREATED AUTHOR AUTHOR'S ORGANIZ ATION 10/07/2024 [facility] EPIC DATE CREATED AUTHOR AUTHOR'S ORGANIZ ATION 10/08/2024 [facility] DATE CREATED AUTHOR AUTHOR'S ORGANIZ ATION 11/08/2024 Mj Plummer [facility] Patient Care team informatio n (unrecognized section and content) Water Main Inspector Relationship Specialty Start Date End Date Unallocated, Rome Vines MD [address] [place] [address] PCP - General Family Medicine 07/08/24 Cheyenne Youngblood NP [address] [place] [place] [phone] Nurse Practitioner Family Medicine 07/08/24 Water Main Inspector Relationship Specialty Start Date End Date Tate Green MD [address] [place] [phone] PCP - General Family Medicine 07/16/24 Cheyenne Youngblood NP [address] [place] [phone] Nurse Practitioner Family Medicine 07/08/24 Water Main Inspector Relationship Specialty Start Date End Date Tate Green MD [address] [place] [phone] PCP - General Family Medicine 12/24/23 Water Main Inspector Relationship Specialty Start Date End Date Unallocated, Rome Vines MD [address] [place] [address] PCP - General Family Medicine 07/08/24 Cheyenne Youngblood NP [address] [place] [phone] Nurse Practitioner Family Medicine 07/08/24 Water Main Inspector Relationship Specialty Start Date End Date Tate Green MD [address] [place] [phone] PCP - General Family Medicine 07/16/24 Cheyenne Youngblood NP [address] [place] [phone] Nurse Practitioner Family Medicine 07/08/24 Water Main Inspector Relationship Specialty Start Date End Date Tate Green MD [address] [place] [phone] PCP - General Family Medicine 07/16/24 Cheyenne Youngblood NP [address] [place] [phone] Nurse Practitioner Family Medicine 07/08/24 Water Main Inspector Relationship Specialty Start Date End Date Tate Green MD [address] [place] [phone] PCP - General Family Medicine 07/16/24 Cheyenne Youngblood NP [address] [place] [phone] Nurse Practitioner Family Medicine 07/08/24 Water Main Inspector Relationship Specialty Start Date End Date Tate Green MD [address] [place] [phone] PCP - General Family Medicine 07/16/24 Cheyenne Youngblood NP [address] [place] [phone] Nurse Practitioner Family Medicine 07/08/24 Water Main Inspector Relationship Specialty Start Date End Date Tate Green MD [address] [place] [address] PCP - General Family Medicine 07/16/24 Cheyenne Youngblood NP [address] [place] [address] Nurse Practitioner Family Medicine 07/08/24 Team Status: Active Member Role Status Dates NON STAFF Primary Care Provider Active Team Status: Inactive Member Role Status Dates aMria Lindsey DO Attending Provider Active Start: October 06, 2024 End: October 06, 2024 NON STAFF Primary Care Provider Active Start: October 06, 2024 End: October 06, 2024 Goals (unrecognized section and content) Goals may be documented in a n alternate section FOR RECORDS PERTAINING TO PATIENTS WHO ARE [...] BE BASED ON THE PRIMARY CLINICAL RECORDS. [facility] [employer] [facility]. provides no warranty or guarantee of the accuracy or completeness of information in this document.
--- NOTE | 2024-11-11 07:24 | ED_ITS ---
HPI HPI - General Adult General Chief complaint: Nausea/Vomiting/Diarrhea Stated complaint: VOMITTING STOMACH PAINS Time Seen by Provider: 11/11/24 07:08 Source: patient Mode of arrival: walk-in History of Present Illness HPI narrative: Patient presents to ED complaining of left flank and lower abdomen pain. Patient states it started suddenly at 4:30 in the morning. It is associated with severe nausea vomiting. Patient states he has a history of kidney stones and this feels similar. Patient denies any testicular pain although it does radiate towards the testicle. Patient denies any chest pain or shortness of breath. Patient states he was feeling fine yesterday and this came on suddenly. He is sitting in the chair uncomfortable in pain and has a bucket in front of him because he has been vomiting due to the pain. Toradol and Zofran orders placed right away. Related Data Home Medications ?Medication ?Instructions ?Recorded ?Confirmed atenolol 25 mg tablet 25 mg PO Q24H 05/13/23 11/11/24 atorvastatin 20 mg tablet 20 mg PO DAILY 05/13/23 11/11/24 losartan 50 mg tablet 50 mg PO BID 05/13/23 11/11/24 meloxicam 15 mg tablet 15 mg PO DAILY 05/13/23 11/11/24 metformin 500 mg tablet 250 mg PO DAILY 05/13/23 11/11/24 tizanidine 4 mg tablet 4 mg PO DAILY 05/13/23 11/11/24 amlodipine 5 mg tablet 5 mg PO DAILY 11/11/24 11/11/24 famotidine 20 mg tablet 20 mg PO DAILY 11/11/24 11/11/24 magnesium oxide 400 mg (241.3 mg 400 mg PO DAILY 11/11/24 11/11/24 magnesium) tablet montelukast 10 mg tablet 10 mg PO BEDTIME 11/11/24 11/11/24 Previous Rx's ?Medication ?Instructions ?Recorded hydrocodone 5 mg-acetaminophen 325 1 tab PO Q6H PRN pain #15 tabs 11/11/24 mg tablet ondansetron 4 mg disintegrating 4 mg PO DAILY PRN nausea and 11/11/24 tablet vomiting #15 tabs tamsulosin 0.4 mg capsule (Flomax) 0.4 mg PO DAILY #14 caps 11/11/24 Allergies Allergy/AdvReac Type Severity Reaction Status Date / Time No Known Drug Allergies Allergy Verified 11/11/24 07:07 Opioid HPI Opioid Management Most Recent Opioid Data: Last Pain Scale 7 11/11/24 08:21 11/11/24 Last MAR Pain Assessment 11/11/24 08:21 Review of Systems ROS Status of ROS 10 or more systems reviewed and unremark able except as noted in history and below PFSH PFSH Social History Smoking status: Never smoker Little interest or pleasure in doing things: not at all Feeling down, depressed, or hopeless: not at all Exam Narrative Exam Narrative: General: alert, no acute distress Cardiovascular: regular rate and rhythm, normal peripheral perfusion. Respiratory: Lungs CTA, respirations non labored. Extremities: no deformity, no trauma. Neurological: oriented x 4, LOC appropriate for age. Abdomen soft, mild left lower quadrant tenderness left CVA tenderness. No rebound no guarding no peritoneal signs Constitutional Vital Signs, click to edit/add: Last Vital Signs Temp 97.7 F 11/11/24 07:08 Pulse 74 11/11/24 09:48 Resp 18 11/11/24 09:48 BP 140/90 11/11/24 09:48 Pulse Ox 100 11/11/24 09:48 O2 Del Method Room Air 11/11/24 07:08 Course Vital Signs Vital signs: Vital Signs Temperature 97.7 F 11/11/24 07:08 Pulse Rate 100 H 11/11/24 07:08 Respiratory Rate 18 11/11/24 07:08 Blood Pressure 171/95 H 11/11/24 07:08 Pulse Oximetry 99 11/11/24 07:08 Oxygen Delivery Method Room Air 11/11/24 07:08 Temperature 97.7 F 11/11/24 07:08 Pulse Rate 74 11/11/24 09:48 Respiratory Rate 18 11/11/24 09:48 Blood Pressure 140/90 11/11/24 09:48 Pulse Oximetry 100 11/11/24 09:48 Oxygen Delivery Method Room Air 11/11/24 07:08 Medical Decision Making MDM Narrative Medical decision making narrative: Patient has a 3 mm distal kidney stone. No elevated white blood cell count. Creatinine is slightly elevated but this appears to be baseline. Patient's nausea vomiting and pain were controlled prior to discharge. Patient does see Dr. Campuzano, urologist. I told him to call the office today to schedule a close follow-up appointment. He does state that he supposed to go to [place] this weekend so I told him to try and get in before the trip. Patient was instructed to return if worsening pain nausea vomiting fever chills or any further concerns. Otherwise instructed to drink water. Use the pain medication and nausea medication as needed and take the Flomax. Patient states he would be more comfortable at home. Will return if worsening symptoms and he is comf ortable with care plan for home. Differential Diagnosis Differential Diagnosis: Kidney stone, UTI, KI Lab Data Lab results reviewed: Yes I reviewed the patient's lab results Labs: Lab Results 11/11/24 Range/Units 07:20 WBC 5.7 (4.0-11.0) 10^3/uL RBC 5.24 (4.70-6.10) 10^6/uL Hgb 15.6 (14.0-18.0) g/dL Hct 46.7 (42.0-54.0) % MCV 89.1 (80.0-94.0) fL MCH 29.8 (25.9-34.0) pg MCHC 33.4 (29.9-35.2) g/dL RDW 13.1 (11.0-15.0) % Plt Count 239 (150-450) 10^3/uL MPV 9.6 (9.5-13.5) fL Neut % (Auto) 62.5 (43.0-75.0) % Lymph % (Auto) 24.1 (20.5-60.0) % Esmeralda % (Auto) 9.0 (1.7-12.0) % Eos % (Auto) 2.6 (0.9-7.0) % Baso % (Auto) 1.4 (0.2-2.0) % Neut # (Auto) 3.6 (1.4-6.5) 10^3/uL Lymph # (Auto) 1.4 (1.2-3.8) 10^3/uL Esmeralda # (Auto) 0.5 (0.3-0.8) 10^3/uL Eos # (Auto) 0.2 (0.0-0.7) 10^3/uL Baso # (Auto) 0.1 (0.0-0.1) 10^3/uL Abs Immat Gran (auto) 0.02 (0.00-0.03) 10^3/uL Imm/Tot Granulo (auto) 0.4 (0.0-0.5) % Sodium 140 (136-145) mmol/L Potassium 3.8 (3.5-5.1) mmol/L Chloride 105 (98-107) mmol/L Carbon Dioxide 28.3 (21.0-32.0) mmol/L Anion Gap 10.5 BUN 25.0 H (7.0-18.0) mg/dL Creatinine 1.48 H (0.70-1.30) mg/dL Est GFR ( Amer) 59 L (>=60 mL/min/1.73m^2) Est GFR (Non-Af Amer) 48 L (>=60 mL/min/1.73m^2) BUN/Creatinine Ratio 16.9 Glucose 142 H (74-106) mg/dL Calcium 9.3 (8.5-10.1) mg/dL Total Bilirubin 0.4 (0.2-1.0) mg/dL AST 29 (15-37) U/L ALT 38 (16-63) U/L Alkaline Phosphatase 55 (46-116) U/L Total Protein 7.4 (6.4-8.2) g/dL Albumin 4.2 (3.4-5.0) g/dL Globulin 3.2 g/dL Albumin/Globulin Ratio 1.3 Urine Color Yellow (YELLOW) Urine Clarity Clear (CLEAR) Urine pH 5.5 (5.0-9.0) Ur Specific Monson >=1.030 A (1.005-1.025) Urine Protein 30 A (NEG/TRACE) mg/dL Urine Glucose (UA) Negative (NEGATIVE) mg/dL Urine Ketones Negative (NEGATIVE) mg/dL Urine Occult Blood Large A (NEGATIVE) Urine Nitrite Negative (NEGATIVE) Urine Bilirubin Negative (NEGATIVE) Urine Urobilinogen 0.2 (0.2-1.0) EU/dL Ur Leukocyte Esterase Negative (NEGATIVE) Urine RBC 20-50 A (0-2) #/HPF Urine WBC 0-2 A (NONE SEEN) #/HPF Ur Squamous Epith Cells Few A (NONE/RARE) #/LPF Urine Crystals None seen (None Seen) #/HPF Urine Bacteria Small A (NONE SEEN) #/HPF Urine Casts Seen A (NONE SEEN) #/LPF Hyaline Casts Rare Urine Mucus Large A (NONE SEEN) Ur Culture Indicated? Yes-[facility] [place] Imaging Data CT scan - abdomen: My impression: 3 mm distal stone Discharge Plan Discharge Chief Complaint: Nausea/Vomiting/Diarrhea Clinical Impression: Kidney stone Patient Disposition: Home, Self-Care Time of Disposition Decision: 09:37 Condition: Good Mode of Transportation: Private Vehicle Prescriptions / Home Meds: New hydrocodone-acetaminophen 5-325 mg tablet 1 tab PO Q6H PRN (Reason: pain) Qty: 15 0RF tamsulosin [Flomax] 0.4 mg capsule 0.4 mg PO DAILY Qty: 14 0RF ondansetron 4 mg tablet,disintegrating 4 mg PO DAILY PRN (Reason: nausea and vomiting) Qty: 15 0RF No Action losartan 50 mg tablet 50 mg PO BID metformin 500 mg tablet 250 mg PO DAILY atorvastatin 20 mg tablet 20 mg PO DAILY tizanidine 4 mg tablet 4 mg PO DAILY meloxicam 15 mg tablet 15 mg PO DAILY atenolol 25 mg tablet 25 mg PO Q24H amlodipine 5 mg tablet 5 mg PO DAILY Rx Instructions: in the evening famotidine 20 mg tablet 20 mg PO DAILY magnesium oxide 400 mg (241.3 mg magnesium) tablet 400 mg PO DAILY montelukast 10 mg tablet 10 mg PO BEDTIME Print Language: Burkinan Instructions: Kidney Stones (ED) Referrals: Christi Bright MD [Physician] - 1 week Cheyenne Youngblood NP [Primary Care Provider] - 1 week Discharge Date/Time: 11/11/24 09:49
[2024-11-11 07:31] LABS: Basophils Absolute Auto 0.1 10^3/uL (0.0-0.1); Basophils Percent Auto 1.4 % (0.2-2.0); Eosinophils Absolute Auto 0.2 10^3/uL (0.0-0.7); Eosinophils Percent Auto 2.6 % (0.9-7.0); Hematocrit 46.7 % (42.0-54.0); Hemoglobin 15.6 g/dL (14.0-18.0); Immature Granulocytes Abs Auto 0.02 10^3/uL (0.00-0.03); Immature Granulocytes Pct Auto 0.4 % (0.0-0.5); Lymphocytes Absolute Auto 1.4 10^3/uL (1.2-3.8); Lymphocytes Percent Auto 24.1 % (20.5-60.0); Mean Corpuscular HGB Conc 33.4 g/dL (29.9-35.2); Mean Corpuscular Hemoglobin 29.8 pg (25.9-34.0); Mean Corpuscular Volume 89.1 fL (80.0-94.0); Mean Platelet Volume 9.6 fL (9.5-13.5); Monocytes Absolute Auto 0.5 10^3/uL (0.3-0.8); Neutrophils Absolute Auto 3.6 10^3/uL (1.4-6.5); Neutrophils Percent Auto 62.5 % (43.0-75.0); Platelet Count 239 10^3/uL (150-450); Red Blood Count 5.24 10^6/uL (4.70-6.10); Red Cell Distribution Width 13.1 % (11.0-15.0); White Blood Count 5.7 10^3/uL (4.0-11.0)
[2024-11-11 07:36] LABS: Bilirubin Urine NEGATIVE (NEGATIVE); Blood Urine LARGE (NEGATIVE); Clarity Urine CLEAR (CLEAR); Color Urine YELLOW (YELLOW); Glucose Urine UA NEGATIVE (NEGATIVE); Ketones Urine NEGATIVE (NEGATIVE); Leukocyte Esterase Urine NEGATIVE (NEGATIVE); Nitrite Urine NEGATIVE (NEGATIVE); Protein Urine 30 mg/dL (NEG/TRACE); Specific Gravity Urine >=1.030 (1.005-1.025); Urobilinogen Urine 0.2 EU/dL (0.2-1.0); pH Urine 5.5 (5.0-9.0)
[2024-11-11] MEDS: 0.9 % SODIUM CHLORIDE 1,000 ML 1000 ML IV (07:38)
[2024-11-11] MEDS: KETOROLAC TROMETHAMINE 30 MG/ML VIAL IVP (07:38)
[2024-11-11] MEDS: ONDANSETRON PF 4 MG/2 ML VIAL IV (07:39)
[2024-11-11 07:47] LABS: Urine Microscopic Indicated YES
[2024-11-11 07:48] LABS: Alanine Aminotransferase 38 U/L (16-63); Albumin Globulin Ratio 1.3; Albumin Level 4.2 g/dL (3.4-5.0); Alkaline Phosphatase 55 U/L (46-116); Anion Gap 10.5; Aspartate Amino Transferase 29 U/L (15-37); BUN Creatinine Ratio 16.9; Bilirubin Total 0.4 mg/dL (0.2-1.0); Calcium 9.3 mg/dL (8.5-10.1); Carbon Dioxide 28.3 mmol/L (21.0-32.0); Chloride 105 mmol/L (98-107); Estimated GFR (African America 59 (>=60 mL/min/1.73m^2); Estimated GFR (Non-African Ame 48 (>=60 mL/min/1.73m^2); Globulin 3.2 g/dL; Glucose 142 mg/dL (74-106); Potassium 3.8 mmol/L (3.5-5.1); Sodium 140 mmol/L (136-145); Total Protein 7.4 g/dL (6.4-8.2)
[2024-11-11 07:55] LABS: Bacteria Urine SMALL #/HPF (NONE SEEN); Cast Seen? SEEN #/LPF (NONE SEEN); Crystals Seen? None Seen #/HPF (None Seen); Hyaline Casts Urine RARE; Mucus Urine LARGE (NONE SEEN); RBC Urine 20-50 #/HPF (0-2); Squamous Epithelial Cell Urine FEW #/LPF (NONE/RARE); Urine Culture Indicated YES-FRMC; WBC Urine 0-2 #/HPF (NONE SEEN)
[2024-11-11] MEDS: METOCLOPRAMIDE HCL 10 MG/2 ML VIAL IVP (08:21)
[2024-11-11] MEDS: MORPHINE SULFATE 4 MG/ML VIAL IV (08:21)
[2024-11-11] MEDS: DIPHENHYDRAMINE HCL 50 MG/ML VIAL 25 MG IVP (08:21)
[2024-11-11 09:48] VITALS: BP 140/90; PULSE 74; O2SAT 100
== END 2024-11-11 09:49 | disposition home or self-care (01) ==
PROVIDERS: Emergency Provider Emergency Medicine; PCP Nurse Practitioner
DX: N13.2 Hydronephrosis with renal and ureteral calculous obstruction (principal); Z87.442 Personal history of urinary calculi
CPT/HCPCS: 36415; 74176; 80053; 81001; 85025; 87086; 96361; 96374; 96375; 99284; J1200; J1885; J2270; J2405; J2765

== ENCOUNTER 2025-01-20 11:13 | Outpatient (OUT) | payer SELFPAY ==
[2025-01-20 11:49] LABS: Bilirubin Urine NEGATIVE (NEGATIVE); Blood Urine NEGATIVE (NEGATIVE); Clarity Urine CLEAR (CLEAR); Color Urine LT. YELLOW (YELLOW); Glucose Urine UA NEGATIVE (NEGATIVE); Ketones Urine NEGATIVE (NEGATIVE); Leukocyte Esterase Urine NEGATIVE (NEGATIVE); Nitrite Urine NEGATIVE (NEGATIVE); Protein Urine NEGATIVE (NEG/TRACE); Specific Gravity Urine 1.025 (1.005-1.025); Urobilinogen Urine 0.2 EU/dL (0.2-1.0)
[2025-01-20 11:51] LABS: Urine Microscopic Indicated NO
[2025-01-20 11:56] LABS: Creatinine Urine Random 206.17 mg/dL (20.00-300.00); Microalbumin Urine Random <1.3 mg/dL (<=30.0)
[2025-01-20 12:02] LABS: Magnesium 1.8 mg/dL (1.8-2.4)
== END 2025-01-20 11:14 | disposition home or self-care (01) ==
LOC: LAB 11:17
PROVIDERS: PCP Nurse Practitioner; Visit Provider Nurse Practitioner
DX: Z00.00 Encounter for general adult medical examination without abnormal findings (principal); E61.2 Magnesium deficiency
CPT/HCPCS: 36415; 81003; 82043; 82570; 83735